=== PATIENT | male | born 1945 | race Caucasian/White ===

== ENCOUNTER → 2019-04-29 10:47 | Outpatient (CLI) | payer OTHER, SELFPAY ==
--- NOTE | 2019-04-29 11:06 | DI.CT.S_ITS ---
PROCEDURE: CT ABDOMEN PELVIS WO/W CON INDICATIONS: Hematuria, unspecified TECHNIQUE: Optional 5 mm thick noncontrast images acquired from the diaphragm to the symphysis pubis. After the administration of intravenous contrast, 5 mm thick images acquired from the diaphragm to the symphysis pubis after a 10-minute delay. 2 mm thick coronal and sagittal reformats were then performed of the kidneys and ureters. For radiation dose reduction, the following was used: automated exposure control, adjustment of mA and/or kV according to patient size. COMPARISON: None. FINDINGS: Image quality: Excellent. Lung bases: Fat-containing right posterior diaphragmatic hernia. Small hiatal hernia. Urinary system: Both kidneys are normal in size, without hydronephrosis or nephrolithiasis on pre-contrast images. Numerous subcentimeter presumed cyst seen in both kidneys although right much more numerous than left, technically indeterminate due to small size. No perinephric fat stranding. There is normal bilateral renal enhancement. Renal calyces appear normal in morphology when filled with contrast. Opacified portions of both ureters demonstrate normal caliber. Large bladder mass is seen along the right posterior wall measuring 1.9 x 4.3 cm. This measures approximately 4.2 cm in the cephalocaudad dimension. No bladder calculi. Other solid organs: Liver is normal in size and enhancement. Gallbladder negative. Biliary system is non dilated. Pancreas enhances normally. Spleen is normal in size and enhancement. No adrenal nodules. Peritoneum and bowel: Bowel loops demonstrate normal wall thickness and caliber. No free fluid or air. Colonic diverticulosis. Nodes and vessels: No retroperitoneal or mesenteric adenopathy by size criteria. Aorta and inferior vena cava are normal in size. Scattered vascular calcifications seen in the aorta. Abdominal wall: No ventral hernias. Pelvis: Bilateral small fat-containing inguinal hernias. No pelvic free fluid. No pelvic adenopathy identified. Prostate and seminal vesicles grossly unremarkable. Bones: No suspicious bony lesions. No vertebral body compression fractures. Chronic left rib fractures. IMPRESSION: Large right posterior bladder mass, highly suspicious for bladder malignancy. Recommend further evaluation with cystoscopy. Elsewhere, small renal cyst however no evidence of urinary obstruction. No specific evidence of distant metastatic disease. Additional chronic and incidental findings as above. Findings were personally telephoned and discussed with Dr. Escobedo's triage nurse at 1347 hours on 04/29/19 who will relay them when possible and call back if any questions. . Dictated by: Anuj Romeo M.D. on 04/29/2019 at 13:25 Approved by: Anuj Romeo M.D. on 04/29/2019 at 13:49
== END ==
PROVIDERS: PCP Family Medicine; Visit Provider Family Medicine
DX: R31.9 Hematuria, unspecified (principal); N32.9 Bladder disorder, unspecified; N28.1 Cyst of kidney, acquired; K40.20 Bilateral inguinal hernia, without obstruction or gangrene, not specified as recurrent; K44.9 Diaphragmatic hernia without obstruction or gangrene; K57.90 Diverticulosis of intestine, part unspecified, without perforation or abscess without bleeding
CPT/HCPCS: 74178; Q9967

== ENCOUNTER 2019-08-05 10:22 | Day surgery (SDC) | payer MEDICARE, OTHER, SELFPAY ==
[2019-07-29 13:38] VITALS: BMI 31.1
[2019-08-05] VITALS (9 sets, daily range): BP systolic 138–165; BP diastolic 52–74; PULSE 50–87; RESP 10–24; TEMP 36–36.6; O2SAT 94–100; BMI 31.1
--- NOTE | 2019-08-05 | PATH_ITS ---
[facility] Accession Number: [id number] . 01 Material submitted: . PART A: bladder - BLADDER TUMOR RIGHT ANTERIOR WALL AND NECK PART B: bladder - BLADDER TUMOR BASE . 01 Clinical history: . TURBT/INSTILLATION MITOMYCIN C 20 MG . 02 Diagnosis: A. Bladder, Tumor Right Anterior Wall and Neck, Transurethral Resection: High-grade papillary urothelial carcinoma. No invasion identified. No lymphovascular invasion identified. No muscularis propria identified. . B. Bladder, Tumor Base, Transurethral Resection: High-grade papillary urothelial carcinoma, invasive. No definite lymphovascular invasion identified. Muscularis propria/detrusor muscle is present and uninvolved by carcinoma. [facility] 08/08/2019 1520 Local . 02 Comment: As part of routine aerospace quality engineer, Dr. Dave Gonzales also reviewed this case and agrees with the diagnosis. Dr. Iniguez gave preliminary results to Kylie in Dr. Navas's office on 08/08/2019. . 02 Electronically signed: . Lana Iniguez MD, Pathologist NPI- [id number] . 01 Gross description: . (A) Received in formalin, labeled bladder tumor, right anterior wall neck, are multiple fragments of layton tissue (less than 1 gram, 1.8 x 1.8 x 0.5 cm in aggregate). Entirely submitted in cassette A1. (B) Received in formalin, labeled bladder tumor base, are multiple fragments of layton friable tissue (16 grams, 4.5 x 4.2 x 2.3 cm in aggregate). Entirely submitted in cassettes B1-B10. ([id number]) /MRV 08/07/2019 2150 Local . 02 Pathologist provided ICD-10: C67.9 . 02 CPT . 445105, [id number] Performed at: 01 [facility] [address] [id number] MD Deepak Viveros MD Phone: [phone] Performed at: 02 [facility] [address] [place], [place] [id number] MD Lana Iniguez MD Phone: [phone]
--- NOTE | 2019-08-05 09:10 | PM.PREOP ---
Pre-operative Note Interval Note History & Physical reviewed/Exam performed by Physician: Yes Changes to H&P: No H&P completed within 30 days and has changed as indicated here:: H&P on file.
[2019-08-05] MEDS: LACTATED RINGERS 1,000 ML 42 ML IV (11:00)
[2019-08-05] MEDS: CEFAZOLIN 2 GM/100 ML FROZ.PIGGY IV (12:00)
[2019-08-05] MEDS: BELLADONNA/OPIUM SUPPOSITORIES 1 EACH PR (12:45)
[2019-08-05] MEDS: mitoMYcin 20 MG in WATER FOR INJECTION 20 ML 240 ML INTRAVESIC (12:46)
[2019-08-05] MEDS: fentaNYL 100 MCG/2 ML INJ IV ×2 (13:53→14:03)
[2019-08-05] MEDS: OXYCODONE IR 5 MG TABLET PO (14:30)
--- NOTE | 2019-08-05 15:43 | PM.OP.1 ---
Operative Date/Time/Diagnoses Date of procedure: 08/05/19 Time of procedure: 13:30 Pre-op diagnosis: Large bladder neoplasm Post-op diagnosis: same Procedure & Clinicians Procedure: 1. Transurethral resection of bladder neoplasm-large 2. Instillation mitomycin C (see 20 mg) Same procedure as scheduled: Yes Indications: Large neoplasm right anterior wall and bladder neck Surgeon: Gavino Navas Click Yes if Unassisted: Yes Anesthesia Type: General Operative Notes Findings: Urethral-normal External sphincter-coapted Prostate-4 cm length with moderate lateral lobe hyperplasia Bladder -1 to 2+ trabeculation. There was a large mainly papillary neoplasm situated at the right anterior wall and floor and bladder neck there was attached calcifications the right ureteral orifice was not able to be identified with certainty. One intraoperative photograph was taken that I believe is a preserved and intact right ureteral orifice. Closure Type: not applicable Specimen(s): other (1. Bladder neoplasm 2. Base of bladder neoplasm ) Applied: catheter (Twenty-two Nigerian silicone [address] catheter) Estimated Blood Loss (mL): 10 Blood products transfused: none Procedure in detail: The patient was positioned supine and administered general anesthesia. He was then repositioned in semi-lithotomy and the lower abdomen genitalia and groin were prepped and draped in sterile fashion. The 25 Nigerian resectoscope was then advanced to the lower urinary track with a 30 degree lens with the findings as described above. The resecting loop was then fitted to the resecting element. Cold resection samples were then obtained and submitted as ?bladder neoplasm?. Cutting and cautery resection was then utilized to resect the very large neoplasm occupying the right bladder neck anterior wall and floor as described under findings. Resection was taken down well into the muscularis focal fat was observed and the area of the right a inner right bladder neck at about 8:00 a.m.. Hemostasis was obtained with the cautery element all tissue that was resected was irrigated or mechanically removed with the resecting loop. It was then labeled as base of neoplasm and submitted to pathology for routine gross and microscopic examination. The bladder was then left partially filled and the resectoscope was removed. A 22 Nigerian silicone Green catheter was then inserted and the balloon inflated to 10 cc. The bladder contents were drained. 20 mg of mitomycin-C suspended in 20 cc of sterile normal saline were then instilled into the bladder via the catheter. A catheter plug was then positioned in the drainage flange of the catheter for anticipated to our postoperative retention. The patient was then repositioned in supine was awakened transferred to [facility] and then transported to recovery in stable condition. Complications: none Post-operative Condition: stable Disposition: PACU Plan for aftercare: Schedule appointment with Dr. Navas in 10-12 days for Green catheter and review of pathology.
--- NOTE | 2019-08-05 16:18 | SUR.PHASEII ---
Bladder drained at 1530. Dark, thick red fluid drained, 250 mls. Green bag with urine placed in chemo bin. Meatus cleaned, small amt of blood to meatus. Leg bag placed. Green teaching done with patient and spouse.
--- NOTE | 2019-08-05 17:22 | SUR.PHASEII ---
Patient dressed with assistance from spouse. Domínguez patent with dark, red fluid. Water encouraged. Large domínguez bag provided to patient.
== END 2019-08-05 16:55 | disposition home or self-care (01) ==
PROVIDERS: PCP Family Medicine; Visit Provider Specialist
PROC: 0TBB8ZZ Excision of Bladder, Via Natural or Artificial Opening Endoscopic (ICD-10-PCS; CPT 52240; principal; 2019-08-05 11:15)
DX: C67.8 Malignant neoplasm of overlapping sites of bladder (principal); N40.1 Benign prostatic hyperplasia with lower urinary tract symptoms
CPT/HCPCS: 52240; J0690; J2405; J2704; J3010; J9280

== ENCOUNTER → 2019-10-25 11:04 | Outpatient (CLI) | payer MEDICARE, OTHER, SELFPAY ==
--- NOTE | 2019-10-25 12:11 | DI.CT.S_ITS ---
PROCEDURE: CT ABDOMEN PELVIS WO/W CON INDICATIONS: BLADDER CANCER TECHNIQUE: Optional 5 mm thick noncontrast images acquired from the diaphragm to the symphysis pubis. After the administration of intravenous contrast, 5 mm thick images acquired from the diaphragm to the symphysis pubis after a 10-minute delay. 2 mm thick coronal and sagittal reformats were then performed of the kidneys and ureters. For radiation dose reduction, the following was used: automated exposure control, adjustment of mA and/or kV according to patient size. COMPARISON: [facility], CT, CT ABDOMEN PELVIS WO/W CON, 04/29/2019, 11:37. FINDINGS: Image quality: Excellent. Lung bases: Lung bases are clear. Heart size is normal. Moderate-sized hiatal hernia. Small fat containing right Bochdalek hernia, stable. Urinary system: Both kidneys demonstrate symmetric enhancement. Stable appearance of multiple subcentimeter bilateral renal hypodensities which are again too small to accurately characterize but likely represent cysts. These are again more numerous on the right. No significant perinephric stranding. Interval development of mild-moderate right hydronephrosis. No intraluminal filling defects within the opacified right renal pelvis. There is mild right hydroureter. No contrast opacifies the right ureter although no secondary findings to suggest intraluminal filling defects or periureteral stranding or periureteral soft tissue lesions. There is normal appearance of the left ureter without intraluminal filling defects identified. No perinephric fat stranding. There is normal bilateral renal enhancement. Bilateral renal calyces appear normal in morphology when filled with contrast. No calcified bladder stones. Persistent asymmetric wall thickening of the posterior and right wall of the urinary bladder. This appears less prominent than comparison study dated 04/29/19. More prominent/focal bladder wall thickening of the posterior right urinary bladder wall measures approximately 3.1 cm x 1.0 cm in transverse dimension and approximately 1.0 cm in craniocaudal dimension. Area of more focal thickening is noted at the right ureterovesicular junction. Remainder the urinary bladder wall demonstrates uniform wall thickness. Other solid organs: Liver is normal in size and enhancement. Gallbladder is unremarkable. Biliary system is non dilated. Pancreas enhances normally. Spleen is normal in size and enhancement. No adrenal nodules. Peritoneum and bowel: Bowel loops demonstrate normal wall thickness and caliber. No free fluid or air. Scatter colonic diverticulosis without acute diverticulitis. Nodes and vessels: No retroperitoneal or mesenteric adenopathy by size criteria. Stable appearance of right pelvic sidewall lymph nodes adjacent to the distal right common iliac artery. Scattered atherosclerotic calcifications of the abdominal aorta and iliac vessels without aneurysmal dilatation. Aorta and inferior vena cava are normal in size. Abdominal wall: No ventral hernias. Pelvis: No pathologic free pelvic fluid. Small fat containing bilateral inguinal hernias without acute inflammation. Bones: No suspicious bony lesions. No acute vertebral body compression fractures. Multilevel spondylitic changes throughout the imaged spine. IMPRESSION: 1. Interval decrease in size of right posterior bladder wall mass with more focal thickening near the right ureterovesicular junction. This may represent cause of new right-sided hydronephrosis. The right ureter was not opacified with contrast; however, no secondary findings to suggest intraluminal filling defects within the right ureter. 2. Stable appearance of small, subcentimeter bilateral renal hypodensities favored to represent small renal cysts. 3. No CT evidence for distant metastatic disease. 4. Other chronic findings as above. These are also stable. Dictated by: Thor Man M.D. on 10/25/2019 at 17:16 Approved by: Thor Man M.D. on 10/25/2019 at 17:37
[2019-10-25 12:21] LABS: BUN Creatinine Ratio 19.4 (6-22); Blood Urea Nitrogen 27 mg/dL (9-20); Calcium 9.8 mg/dL (8.4-10.2); Carbon Dioxide 28 mmol/L (22-32); Chloride 106 mmol/L (98-107); Estimated Glomerular Filt Rate 49.8 mL/min (>60); Glucose 115 mg/dL (80-110); HEMOLYSIS < 15 (0-50); Sodium 142 mmol/L (137-145)
== END ==
PROVIDERS: PCP Family Medicine; Referring Provider Family Medicine; Visit Provider Specialist
DX: C67.9 Malignant neoplasm of bladder, unspecified (principal); K44.9 Diaphragmatic hernia without obstruction or gangrene; N13.30 Unspecified hydronephrosis; K57.90 Diverticulosis of intestine, part unspecified, without perforation or abscess without bleeding; I70.0 Atherosclerosis of aorta; K40.20 Bilateral inguinal hernia, without obstruction or gangrene, not specified as recurrent
CPT/HCPCS: 36415; 74178; 80048; Q9967

== ENCOUNTER 2019-11-11 14:12 | Day surgery (SDC) | payer MEDICARE, OTHER, SELFPAY ==
[2019-11-04 07:23] VITALS: BMI 26.3
[2019-11-11 14:54] VITALS: BP 180/81; PULSE 67; RESP 16; TEMP 36.7; O2SAT 100; BMI 26.3
[2019-11-11] MEDS: LACTATED RINGERS 1,000 ML 42 ML IV (15:00)
--- NOTE | 2019-11-11 15:45 | SUR.PREOP ---
Pts procedure was deferred for the following reasons: 1. No Covid-19 test was preformed as instructed for his procedure. 2. Pt was under the impression he was staying over night for an outpatient procedure. After speaking with Dr Navas, he elected to defer this case until the above requirements are met.
[2020-07-17 08:02] VITALS: BMI 26.3
== END 2019-11-11 14:55 | disposition home or self-care (01) ==
PROVIDERS: PCP Family Medicine; Referring Provider Specialist; Visit Provider Specialist
DX: C67.9 Malignant neoplasm of bladder, unspecified (principal); N13.1 Hydronephrosis with ureteral stricture, not elsewhere classified; Z53.09 Procedure and treatment not carried out because of other contraindication
CPT/HCPCS: 52240; J2405; J2704; J3010

== ENCOUNTER → 2019-11-11 16:03 | Outpatient (CLI) | payer MEDICARE, OTHER, SELFPAY ==
[2019-11-12 03:03] LABS: COVID19 Sendout Not Detected (Not Detect)
== END ==
PROVIDERS: PCP Family Medicine; Visit Provider Physician Assistant
DX: Z01.812 Encounter for preprocedural laboratory examination (principal)
CPT/HCPCS: 87635

== ENCOUNTER 2019-11-18 08:49 | Day surgery (SDC) | payer MEDICARE, OTHER, SELFPAY ==
[2019-11-15 07:33] VITALS: BMI 26.3
[2019-11-18] VITALS (7 sets, daily range): BP systolic 137–193; BP diastolic 64–88; PULSE 16–559; RESP 16–18; TEMP 36.2–36.8; O2SAT 96–98; BMI 26.0
--- NOTE | 2019-11-18 | PATH_ITS ---
[facility] Accession Number: [id number] . 01 Material submitted: . bladder neck - RIGHT BLADDER NECK TUMOR . 02 Diagnosis: Right Bladder Neck Tumor, TURBT: Low-grade papillary urothelial carcinoma, non-invasive, see Cancer Case Summary. . Surgical Pathology Cancer Case Summary - Urinary Bladder Procedure: Transurethral resection of bladder. Tumor Site: Other - Right bladder neck. Histologic Type: Papillary urothelial carcinoma, non-invasive. Associated Epithelial Lesions: None identified. Histologic Grade: Low-grade. Tumor Configuration: Papillary. Muscularis Propria Presence: Muscularis propria present. Lymphovascular Invasion: Not identified. Tumor Extension: Non-invasive papillary carcinoma. . [facility] 11/21/2019 1551 Local . 02 Comment: This case is reviewed in conjunction with the previous bladder pathology ([id number]). The degree of nuclear atypia seen in the previous bladder biopsy is not present in the current specimen, warranting a diagnosis of low-grade papillary urothelial carcinoma in the current specimen. Muscularis propria is present, and uninvolved by neoplasm. . As part of routine quality analyst/technical writer, Dr. Santillan has reviewed this case and agrees with the diagnosis above. . 02 Electronically signed: . Dave Gonzales MD, PhD, Pathologist NPI- [id number] . 01 Gross description: . Received in formalin, labeled right bladder neck, are multiple piece of layton-pink, rubbery tissue (1.5 x 1.3 x 0.4 cm in aggregate). Entirely submitted in cassette A1. ([id number]) /FRR 11/19/2019 1413 Local . 02 Pathologist provided ICD-10: C67.9 . 02 CPT . 919681 Performed at: 01 [facility] [address] [place] [address], [place], [place] [id number] MD Deepak Viveros MD Phone: [phone] Performed at: 02 [facility] [address] [place], [place] [id number] MD Lana Santillan MD Phone: [phone]
[2019-11-18] MEDS: LACTATED RINGERS 1,000 ML 42 ML IV (09:05)
[2019-11-18] MEDS: CEFAZOLIN 2 GM/100 ML FROZ.PIGGY IV (10:35)
--- NOTE | 2019-11-18 11:08 | SUR.OPER ---
Lithotomy on padded OR bed, head on pillow, arms secured on padded arm boards at <90 degrees abduction. Legs secured in padded yellow fins stirrups.
[2019-11-18] MEDS: METHYLENE BLUE 50 MG/10 ML VIAL IV (11:15)
[2019-11-18] MEDS: mitoMYcin 20 MG in WATER FOR INJECTION 20 ML 240 ML INTRAVESIC (11:34)
--- NOTE | 2019-11-18 11:44 | PM.PREOP ---
Pre-operative Note COVID-19 COVID-19 status: Negative Interval Note History & Physical reviewed/Exam performed by Physician: Yes Changes to H&P: No H&P completed within 30 days and has changed as indicated here:: There are no changes to the history and physical examination scanned on file.
--- NOTE | 2019-11-18 11:44 | PM.OP.1 ---
Operative Date/Time/Diagnoses Date of procedure: 11/18/19 Time of procedure: 11:45 Pre-op diagnosis: 1. 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 2. Right hydronephrosis status post resection transitional cell carcinoma of right bladder trigone. Post-op diagnosis: same Procedure & Clinicians Procedure: 1. Cystoscopy. 2. Transurethral resection of bladder tumors. 3. Instillation mitomycin C ( 20 mg). Same procedure as scheduled: No (Could not locate right ureteral orifice after resection of wet eschar) Indications: 1. Recurrent transitional cell carcinoma right bladder neck. 2. Right hydronephrosis. Surgeon: Gavino Navas Click Yes if Unassisted: Yes Anesthesia Type: General Operative Notes Findings: 1. Urethra-normal. 2. External sphincter-coapted. 3. Prostate -4 cm length with moderately obstructing lateral lobes. 4. Bladder-1 to 2+ trabeculation normal left orifice. The right orifice could not be located visually. The wet eschar was cold and hot resected in an attempt to identify the obscured orifice. Methylene blue was administered as well. No identifiable aperture could be identified and therefore retrograde pyelogram and right stent placement were not performed. There was a small neoplasm noted at the left posterior floor which was cautery destroyed to the level of the muscle. Several tumors clustered at the right bladder neck were resected with inclusion of underlying muscularis. Closure Type: not applicable Specimen(s): other (Bladder neoplasm right bladder neck) Applied: catheter (Eighteen Cambodian Green catheter) Estimated Blood Loss (mL): 0 Blood products transfused: none Tourniquet time (min): 0 Procedure in detail: The patient was positioned in supine and was administered general anesthesia. He was then repositioned semi lithotomy in the lower abdomen genitalia and groin were prepped and draped in sterile fashion. The 22 Cambodian panendoscope was then passed the lower urinary tract with the findings as described above. The bladder was then left partially filled and the panendoscope was removed. The 24 Cambodian resectoscope was then passed lower urinary tract under direct visualization. The resecting loop was then utilized to cautery destroyed the above-described tumor at the left posterior bladder floor and then resect deeply those tumors at the right bladder neck. Hemostasis was attained with electrocautery. An extensive search for the right ureteral orifice was then undertaken. Despite cold in high resection of the overlying when scab a ureteral aperture could not be identified visually. Methylene blue was then administered. Unfortunately a right orifice could not be identified. Therefore anticipated right retrograde pyelogram and right stent placement were not performed. The bladder was left partially filled and the resectoscope was removed. An 18 Cambodian Green catheter was then inserted. The balloon was inflated to 10 cc. The bladder contents were drained. 20 cc containing 20 mg mitomycin C were then instilled into the bladder and the catheter plugged for anticipated to our postoperative retention. Complications: none Post-operative Condition: stable Disposition: PACU Plan for aftercare: Discharge home.
--- NOTE | 2019-11-18 12:36 | SUR.PHASEII ---
called patient's , Dedra, with update regarding patient's status and that patient would be discharged at approximately 1400 if all remains stable. V/U. Patient sitting in stretcher, reading book. Denies any pain or nausea. Warm blanket provided.
--- NOTE | 2019-11-18 14:30 | SUR.PHASEII ---
Late Entry: 1325: Attached large catheter bag and drained mitomycin as per protocol using chemotherapy precautions. 200 mls output noted. Attached leg bag and secured to patient using straps. Educated and instructed patient how to empty the drainage bag and how to deflate balloon on Thursday to remove catheter completely. Patient verbalizes understanding.
--- NOTE | 2019-11-18 14:32 | SUR.PHASEII ---
Discharged patient home with in stable condition. Instructed to follow up as needed or to return to ER if any severe symptoms.
== END 2019-11-18 14:36 | disposition home or self-care (01) ==
PROVIDERS: PCP Family Medicine; Referring Provider Specialist; Visit Provider Specialist
PROC: 0TBB8ZZ Excision of Bladder, Via Natural or Artificial Opening Endoscopic (ICD-10-PCS; CPT 52235; principal; 2019-11-18 10:00)
PROC: (CPT 52235; 2019-11-18 10:00)
DX: C67.9 Malignant neoplasm of bladder, unspecified (principal); I10 Essential (primary) hypertension; N40.1 Benign prostatic hyperplasia with lower urinary tract symptoms; N13.39 Other hydronephrosis
CPT/HCPCS: 52235; J0690; J9280; Q9968

== ENCOUNTER → 2020-04-25 10:37 | Outpatient (CLI) | payer MEDICARE, OTHER, SELFPAY ==
--- NOTE | 2020-04-25 11:52 | DI.CT.S_ITS ---
PROCEDURE: CT ABDOMEN PELVIS WO/W CON TECHNIQUE: Optional 5 mm thick noncontrast images acquired from the diaphragm to the symphysis pubis. After the administration of intravenous contrast, 5 mm thick images acquired from the diaphragm to the symphysis pubis after a 10-minute delay. 2 mm thick coronal and sagittal reformats were then performed of the kidneys and ureters. For radiation dose reduction, the following was used: automated exposure control, adjustment of mA and/or kV according to patient size. COMPARISON: [facility], CT, CT ABDOMEN PELVIS WO/W CON, 10/25/2019, 12:27. FINDINGS: Image quality: Excellent. Lung bases: Lung bases are clear. Heart size is normal. Fat containing right diaphragmatic hernia. Urinary system: Right ureteral stent. No right nephrolithiasis. No left nephrolithiasis identified. There is mild age-indeterminate bilateral perinephric stranding. No hydronephrosis identified. Ureters appear nondilated. There is mild thickening of the right posterior bladder wall as well as anterior mural nodularity presumably reflecting patient's given clinical history of bladder carcinoma. This appears slightly more progressed in particular involving the anterior mural nodularity measuring 2.4 x 1.6 cm image 75/2. Other solid organs: Liver is normal in size and enhancement. Gallbladder unremarkable . Biliary system is non dilated. Pancreas enhances normally. Spleen is normal in size and enhancement. No adrenal nodules. Peritoneum and bowel: Bowel loops demonstrate normal wall thickness and caliber. No free fluid or air. Colonic diverticulosis is seen without evidence of acute complication. Small hiatal hernia. Nodes and vessels: No retroperitoneal or mesenteric adenopathy by size criteria. Aorta and inferior vena cava are normal in size. Scattered vascular calcifications seen in the aorta. There is also suggestion of displaced intimal calcification suggestive of chronic aortic dissection/hematoma which is unchanged since the prior study. Abdominal wall: No ventral hernias. Pelvis: No pathologic free pelvic fluid. Small bilateral fat containing inguinal hernias. Bones: Chronic multiple left-sided rib fractures. No suspicious bone lesion identified. Diffuse spondylosis and facet arthropathy. IMPRESSION: Interval progression in anterior bladder mural nodularity, presumably reflecting the patient's given clinical history of bladder carcinoma. No hydronephrosis, status post placement of right ureteral stent. Additional chronic and incidental findings as above. Dictated by: Anuj Romeo M.D. on 04/25/2020 at 12:05 Approved by: Anuj Romeo M.D. on 04/25/2020 at 13:04
== END ==
PROVIDERS: PCP Family Medicine; Referring Provider Specialist; Visit Provider Specialist
DX: C67.9 Malignant neoplasm of bladder, unspecified (principal); K40.20 Bilateral inguinal hernia, without obstruction or gangrene, not specified as recurrent; K57.90 Diverticulosis of intestine, part unspecified, without perforation or abscess without bleeding; K44.9 Diaphragmatic hernia without obstruction or gangrene
CPT/HCPCS: 74178; Q9967

== ENCOUNTER → 2020-05-03 11:09 | Outpatient (CLI) | payer MEDICARE, OTHER, SELFPAY | PROVIDERS: PCP Family Medicine; Visit Provider Specialist | DX: N39.0 Urinary tract infection, site not specified (principal); C67.9 Malignant neoplasm of bladder, unspecified; N28.9 Disorder of kidney and ureter, unspecified; N40.1 Benign prostatic hyperplasia with lower urinary tract symptoms; N13.8 Other obstructive and reflux uropathy; Z85.51 Personal history of malignant neoplasm of bladder | CPT/HCPCS: 51798; 52310; 81002; 87086; 99214 ==

== ENCOUNTER 2020-05-14 11:28 | Day surgery (SDC) | payer MEDICARE, OTHER, SELFPAY ==
[2020-05-10 08:28] VITALS: BMI 23.7
[2020-05-14] VITALS (9 sets, daily range): BP systolic 117–182; BP diastolic 52–77; PULSE 44–56; RESP 10–16; TEMP 36.1–36.7; O2SAT 98–100; BMI 24.3
[2020-05-14] MEDS: LACTATED RINGERS 1,000 ML 42 ML IV (12:59)
[2020-05-14] MEDS: CEFAZOLIN 2 GM/100 ML FROZ.PIGGY IV (13:25)
--- NOTE | 2020-05-14 13:27 | PM.PREOP ---
Pre-operative Note Interval Note History & Physical reviewed/Exam performed by Physician: Yes Changes to H&P: No
--- NOTE | 2020-05-14 13:51 | SUR.OPER ---
Lithotomy on padded OR bed, head on pillow, arms secured on padded arm boards at <90 degrees abduction. Legs secured in padded yellow fins stirrups.
--- NOTE | 2020-05-14 14:07 | PM.OP.1 ---
Operative Date/Time/Diagnoses Date of procedure: 05/14/20 Time of procedure: 14:07 Pre-op diagnosis: 1. Recurrent urothelial carcinoma the bladder Post-op diagnosis: same Procedure & Clinicians Procedure: 1. Cystoscopy transurethral resection-full duration recurrent bladder tumor (0.5-2 cc). 2. Cystoscopy and placement right ureteral stent (6 Mauritian by 22-32 cm multi-length). 3. Cystoscopy instillation mitomycin-C (20 mg). Same procedure as scheduled: No (Suspicious recurrence right ureteral orifice) Indications: 1. Recurrent urothelial carcinoma right ureteral orifice/ureteric ridge. 2. History of recurrent urothelial carcinoma. Click Yes if Unassisted: Yes Anesthesia Type: General Operative Notes Findings: 1. Urethra-normal caliber no lesions. 2. External sphincter-coapted. 3. Prostate-4 cm length with moderate trilobar hyperplasia. 4. Bladder-1-2 puffs trabeculation throughout. Normal left ureteral orifice. There is a healing resection base adjacent to the right ureteral orifice there are numerous small urothelial projection mainly posterior and lateral to the orifice. No brice tumor or suspicious lesion is seen emanating from the ureteral orifice. Closure Type: not applicable Specimen(s): none sent Applied: catheter (Eight[address] Green) Estimated Blood Loss (mL): 0 Blood products transfused: none Tourniquet time (min): 0 Procedure in detail: Patient was positioned supine was administered general anesthesia. He was then repositioned semi lithotomy and the lower abdomen, genitalia, and groin were prepped and draped in sterile fashion for a the 22 Mauritian panendoscope was then passed lower urinary tract with the findings as described above. A 0.35 guidewire was requested and passed through the working port into the right collecting system under direct guidance. Over this a 6 Mauritian by 22-32 cm multi-length stent was positioned. NO RETRIEVAL LINE WAS LEFT ATTACHED. Next, the panendoscope was removed and resectoscope was introduced lower urinary tract and fitted with the button electrode. Using great care this is fissures areas were cautery destroyed the vicinity of the right ureteral orifice. Hemostasis was excellent resectoscope was then removed. An [address] catheter was inserted, the balloon inflated to 10 cc and the bladder contents drained. A catheter plug was positioned in the in port. 20 mg of mitomycin-C suspended and 20 cc of normal saline were then instilled into the bladder via the outflow channel of the Green. Patient was then repositioned in supine, awakened, and transferred recovery stable condition. Complications: none Post-operative Condition: stable Disposition: PACU Plan for aftercare: Discharge home
[2020-05-14] MEDS: WATER FOR INJECTION,STERILE 20 ML, mitoMYcin 20 MG INTRAVESIC (14:08)
--- NOTE | 2020-05-14 15:06 | SUR.PHASEI ---
1433 - report from MARIAH Rivas and care assumed. 1450 - pt turned to right side.
--- NOTE | 2020-05-14 15:13 | SUR.PHASEI ---
report given to MARIAH Rivas and mike reassumed.
--- NOTE | 2020-05-14 15:20 | SUR.PHASEI ---
Patient on back for 30 minutes, left side for 30 minutes and now on on right side, per mitomycin protocal. Denies pain, states it is an inconvenience.
--- NOTE | 2020-05-14 16:52 | SUR.PHASEII ---
Sitting up in bed, comfortable, drinking fluids, waiting to urinate before he can be discharged. Pleasant, visiting at bedside.
--- NOTE | 2020-05-14 17:42 | SUR.PHASEII ---
1720 Ambulated to the bathroom to void, stable on feet. Voided 100 ml clear pink urine, states that he feels that he was able to empty his bladder completely without difficulty. Pt was pleased that he could also stop voiding. Vital signs taken, tolerated PO intake well. present, reviewed discharge instructions. [place], declined priority boarding pass. 1842 Ambulated to bathroom, voided a little bit
--- NOTE | 2020-05-14 17:50 | SUR.PHASEII ---
Discharge instructions reviewed w/pt/ by Kamari Perdomo RN.
--- NOTE | 2020-05-14 17:51 | SUR.PHASEII ---
states that she got his prescription
== END 2020-05-14 17:52 | disposition home or self-care (01) ==
PROVIDERS: PCP Family Medicine; Referring Provider Family Medicine; Visit Provider Specialist
PROC: 0TBB8ZZ Excision of Bladder, Via Natural or Artificial Opening Endoscopic (ICD-10-PCS; CPT 52234; principal; 2020-05-14 13:15)
DX: C67.9 Malignant neoplasm of bladder, unspecified (principal); E11.9 Type 2 diabetes mellitus without complications; E78.5 Hyperlipidemia, unspecified; I10 Essential (primary) hypertension; N40.1 Benign prostatic hyperplasia with lower urinary tract symptoms; N13.8 Other obstructive and reflux uropathy
CPT/HCPCS: 52234; J0690; J2405; J2704; J3010; J9280

== ENCOUNTER → 2020-06-14 11:28 | Outpatient (CLI) | payer MEDICARE, OTHER, SELFPAY | PROVIDERS: PCP Family Medicine; Referring Provider Specialist; Visit Provider Specialist | DX: N39.0 Urinary tract infection, site not specified (principal) | CPT/HCPCS: 87086 ==

== ENCOUNTER 2020-07-23 10:46 | Day surgery (SDC) | payer MEDICARE, OTHER, SELFPAY ==
[2020-07-17 08:03] VITALS: BMI 25.0
[2020-07-23] VITALS (7 sets, daily range): BP systolic 136–188; BP diastolic 62–84; PULSE 51–70; RESP 12–18; TEMP 36.3–37.3; O2SAT 97–100; BMI 25.0
--- NOTE | 2020-07-23 | PATH_ITS ---
[facility] Accession Number: [id number] . 01 Material submitted: . PART A: bladder - LEFT LATERAL BLADDER WALL MAIN TUMOR PART B: bladder - LEFT LATERAL BLADDER WALL BASE PART C: bladder, dome - BLADDER DOME TUMOR . 02 Diagnosis: A. Left Lateral Bladder Wall, Main Tumor, Transurethral Resection: High-grade papillary urothelial carcinoma, noninvasive. No muscularis propria identified. . B. Left Lateral Bladder Wall, Tumor Base, Transurethral Resection: High-grade papillary urothelial carcinoma, noninvasive. Muscularis propria present and uninvolved. . C. Bladder Dome Tumor, Transurethral Resection: High-grade papillary urothelial carcinoma, noninvasive. Muscularis propria present and uninvolved. . . . CANCER CASE SUMMARY - URINARY BLADDER . Procedure: Transurethral resection of bladder (TURBT) Tumor site: Left lateral wall, dome Histologic type: Papillary urothelial carcinoma, noninvasive Associated epithelial lesions: Not identified. Histologic grade: High grade Tumor configuration: Papillary Muscularis propria presence: Muscularis propria present Lymphovascular invasion: Not identified Tumor extension: Noninvasive papillary carcinoma MRV 07/26/2020 1424 Local . 02 Comment: As part of routine quality assurance assistant, Dr. Boyce has reviewed this case and agrees with the diagnosis of noninvasive papillary urothelial carcinoma. . 02 Electronically signed: . Dave Gonzales MD, PhD, Pathologist NPI- [id number] . 01 Gross description: . A. Received in formalin, labeled left lateral bladder wall main tumor, and consists of a 0.9 x0.6 x 0.3 cm layton-pink fragment of soft tissue. The margin is inked blue. The specimen is bisected and entirely submitted in cassette A1. B. Received in formalin, labeled left lateral bladder wall base, and consists of three layton-pink fragments of soft tissue measuring 1.0 x 0.8 x 0.3 cm in aggregate. The specimen is entirely submitted in cassette B1. C. Received in formalin, labeled bladder dome tumor, and consists of multiple layton-pink fragments of soft tissue measuring 3.0 x 2.2 x 0.5 cm in aggregate. The specimen is filtered and entirely submitted in cassette C1. ([id number]) /MRV 07/24/2020 1024 Local . 02 Pathologist provided ICD-10: C67.9 . 02 CPT . 550861, 868572, [id number] Performed at: 01 [facility] [address] [place] [address], [place], [place] [id number] MD Deepak Viveros MD Phone: [phone] Performed at: 02 [facility] [address] [place], [place] [id number] MD Lana Santillan MD Phone: [phone]
--- NOTE | 2020-07-23 11:33 | SUR.PREOP ---
Rapid Covid swab performed by RN at 1055 and hand carried to laboratory. Waiting for result.
[2020-07-23 11:34] LABS: COVID19 -Nasal RAPID Negative (Negative)
[2020-07-23] MEDS: LACTATED RINGERS 1,000 ML 25 ML IV (12:28)
--- NOTE | 2020-07-23 12:38 | PM.PREOP ---
Pre-operative Note Interval Note History & Physical reviewed/Exam performed by Physician: Yes Changes to H&P: No
[2020-07-23] MEDS: CEFAZOLIN 2 GM/100 ML FROZ.PIGGY IV (12:40)
--- NOTE | 2020-07-23 13:04 | SUR.OPER ---
Lithotomy on padded OR bed, head on pillow, arms secured on padded arm boards at <90 degrees abduction. Legs secured in padded yellow fins stirrups.
[2020-07-23] MEDS: BELLADONNA/OPIUM SUPPOSITORIES 1 EACH PR (13:59)
[2020-07-23] MEDS: WATER FOR INJECTION,STERILE 20 ML, mitoMYcin 20 MG INTRAVESIC (14:05)
--- NOTE | 2020-07-23 14:11 | P.OP_ITS ---
Operative Date/Time/Diagnoses Date of procedure: 07/23/20 Time of procedure: 14:12 Pre-op diagnosis: Recurrent bladder cancer Post-op diagnosis: same Procedure & Clinicians Procedure: 1. Transurethral resection of bladder tumors (dome= 4 cm. Left lateral wall= 2 cm) 2. Cystoscopy and instillation mitomycin C. Same procedure as scheduled: Yes Indications: 1. Recurrent mixed papillary /solid recurrent bladder tumor at left lateral wall and at dome. Click Yes if Unassisted: Yes Anesthesia Type: General Operative Notes Findings: 1. Urethra-normal caliber without stricture or lesion. 2. External sphincter coapted with normal overlying urothelium. 3. Prostate-4.5+ cm length with moderately obstructing lateral lobes and elevated median bar. 4. Bladder-2+ trabeculation normal left ureteral orifice. The right ureteral orifice is somewhat gaping and laterally displaced. The neoplasm at the dome is approximately 4 cm. The left lateral wall neoplasm is approximately 2 cm. Applied: catheter (# [address] catheter.) Estimated Blood Loss (mL): 10 Blood products transfused: none Tourniquet time (min): 0 Procedure in detail: The patient was positioned supine administered general anesthesia. He was then repositioned semi lithotomy and the lower abdomen, gen donta, and groin were prepped and draped in sterile fashion. A 25 Malian resectoscope was then advanced lower urinary tract under direct visualization with the findings as described above. Next, a thin resecting loop was fitted to the working element of the resectoscope. The lesion of the left lateral wall was then carefully resected using a combination of cold and cautery resection into muscularis. The specimen was collected as 2 separate specimens, 1 being the tumor proper and the 2nd being the tumor base. The specimens are submitted to pathology for routine gross and microscopic examination. Next, the tumor at the dome was painstakingly resected using a combination of cold and cautery resection. As is typical the tumor was removed piecemeal. Muscularis was visualized. The base and perimeter were extensively cauterized for hemostasis and to sure the patient was left with a tumor free status. The specimen was then collected in total and was submitted to pathology for routine gross and microscopic examination. The bladder was left partially filled and the resectoscope was then removed. A 22 Malian Green catheter was then inserted in the bladder contents were drained. The balloon was inflated to 10 cc. 20 cc containing 20 mg of mitomycin-C was then instilled in the bladder for anticipated 2 hour postoperative retention. The patient was then repositioned supine, awakened, transferred to [facility] in stable condition. Complications: none Post-operative Condition: stable Disposition: PACU Plan for aftercare: Discharge home.
--- NOTE | 2020-07-23 16:38 | SUR.PHASEII ---
1630 Catheter plugged removed and drained into domínguez bag while wearing chemo protections. About 10 min later bag was removed and placed into chemo waste with about 700 ml lavender/moises colored urine. attached leg bag per pt preference. pt will have night bag to go home with as well. plan for pt to remain here until 1820 when [place] pick [place]. report given to Loulou LEMUS.
--- NOTE | 2020-07-23 17:50 | SUR.PHASEII ---
pt. awaiting to come back from shopping. she will be back at 1820.
== END 2020-07-23 17:00 | disposition home or self-care (01) ==
PROVIDERS: PCP Family Medicine; Referring Provider Specialist; Visit Provider Specialist
PROC: 0TBB8ZZ Excision of Bladder, Via Natural or Artificial Opening Endoscopic (ICD-10-PCS; CPT 52240; principal; 2020-07-23 12:30)
DX: C67.9 Malignant neoplasm of bladder, unspecified (principal); N40.1 Benign prostatic hyperplasia with lower urinary tract symptoms; E11.9 Type 2 diabetes mellitus without complications; Z79.84 Long term (current) use of oral hypoglycemic drugs; Z20.828 Contact with and (suspected) exposure to other viral communicable diseases
CPT/HCPCS: 52240; 87635; J0690; J2250; J2405; J2704; J3010; J9280

== ENCOUNTER → 2020-09-03 11:25 | Outpatient (CLI) | payer MEDICARE, OTHER, SELFPAY | PROVIDERS: PCP Family Medicine; Visit Provider Specialist | DX: N39.0 Urinary tract infection, site not specified (principal); C67.9 Malignant neoplasm of bladder, unspecified | CPT/HCPCS: 81002; 87086; J9030 ==

== ENCOUNTER → 2020-09-24 10:55 | Outpatient (CLI) | payer MEDICARE, OTHER, SELFPAY | PROVIDERS: PCP Family Medicine; Visit Provider Specialist | DX: N39.0 Urinary tract infection, site not specified (principal); C67.9 Malignant neoplasm of bladder, unspecified | CPT/HCPCS: 51720; 81002; 87086; J9030 ==

== ENCOUNTER → 2020-10-01 10:22 | Outpatient (CLI) | payer MEDICARE, OTHER, SELFPAY | PROVIDERS: PCP Family Medicine; Visit Provider Specialist | DX: N39.0 Urinary tract infection, site not specified (principal); Z85.51 Personal history of malignant neoplasm of bladder | CPT/HCPCS: 51720; 81002; 87077; 87086; 87185; 87186; J9030 ==

== ENCOUNTER → 2020-11-27 11:01 | Outpatient (CLI) | payer MEDICARE, OTHER, SELFPAY | PROVIDERS: PCP Family Medicine; Visit Provider Specialist | DX: N39.0 Urinary tract infection, site not specified (principal); N40.1 Benign prostatic hyperplasia with lower urinary tract symptoms; N13.8 Other obstructive and reflux uropathy; K40.90 Unilateral inguinal hernia, without obstruction or gangrene, not specified as recurrent; Z85.51 Personal history of malignant neoplasm of bladder | CPT/HCPCS: 52000; 81002; 87077; 87086; 87186; 99214 ==

== ENCOUNTER 2020-12-07 09:11 | Day surgery (SDC) | payer MEDICARE, OTHER, SELFPAY ==
[2020-12-07] VITALS (12 sets, daily range): BP systolic 119–155; BP diastolic 43–73; PULSE 54–65; RESP 10–18; TEMP 36.6–36.8; O2SAT 95–100; BMI 23.3
--- NOTE | 2020-12-07 09:43 | PM.PREOP ---
Pre-operative Note Interval Note History & Physical reviewed/Exam performed by Physician: Yes Changes to H&P: No
[2020-12-07 09:45] LABS: COVID19 -Nasal RAPID Negative (Negative)
[2020-12-07] MEDS: LACTATED RINGERS 1,000 ML 42 ML IV ×2 (10:38→12:38)
[2020-12-07] MEDS: CEFAZOLIN 1 GM VIAL 2 GM IV (11:00)
--- NOTE | 2020-12-07 11:04 | SUR.OPER ---
Supine on padded OR bed, head on pillow, arms secured on padded arm boards at <90 degrees abduction, legs uncrossed, safety belt at thigh, tape over blanket over lower legs.
[2020-12-07] MEDS: BUPIVACAINE 0.25% W/ EPI 30 ML VIAL INJ (11:09)
[2020-12-07] MEDS: BUPIVACAINE LIPOSOME 266 MG/20 ML VIAL INJ (11:09)
--- NOTE | 2020-12-07 12:55 | P.OP_ITS ---
Operative Date/Time/Diagnoses Date of procedure: 12/07/20 Time of procedure: 12:55 Pre-op diagnosis: Right inguinal hernia Post-op diagnosis: same Procedure & Clinicians Procedure: 1. Right inguinal hernia repair with mesh (see 3 x 6 inch Bard flat mesh). Same procedure as scheduled: Yes Indications: 1. Symptomatic right inguinal hernia. Surgeon: Gavino Navas Click Yes if Unassisted: Yes Anesthesia Type: General and Local (1.33% Exparel) Operative Notes Findings: Indirect inguinal hernia with moderately thickened sac extending to about the mid inguinal canal. The internal ring was attenuated and enlarged. A tongue of preperitoneal fat was also herniating through the internal ring and was adherent to the cord proper. Both the hernia sac she and the tongue of fat were dissected separately from the cord. Closure Type: primary Specimen(s): none sent Estimated Blood Loss (mL): 5 Blood products transfused: none Procedure in detail: Patient was positioned in supine was administered general anesthesia. The abdomen, genitalia, and groin were then prepped and draped in sterile fashion. Local anesthetic was then used to infiltrate skin and subcutaneous tissue over the right inguinal canal. An oblique incision was made over the right inguinal canal and the subcutaneous fat and Neeta's fascia layer were divided using cautery and blunt technique. The external oblique fascia was encountered and a lunch tool incision was made along the orientation of the fibers with resultant opening of the external ring. Is cord and associated anatomy was then carefully examined and blunt cautery and sharp dissection were then undertaken to separate the cord proper from a tongue of herniated preperitoneal fat and the indirect inguinal hernia sac itself. The sac was devoid of intra-abdominal contents or adhesions. A high suture ligation was performed using 2-0 PDS. The internal ring was repaired with [id number] 2- 0 PDS as well. The hernia sac and tongue of preperitoneal fat repositioned in the space behind the inner abdominal wall. Next, a 3 x 6 in sheet of Bard mesh was selected. It was then tailored appropriately to fit beneath the external oblique fascia. Lateral crossing tails were created with a stellate opening to accommodate the cord at the internal ring. The mesh was positioned and secured in place with interrupted 3- 0 Prolene. The testis and cord were then repositioned anatomically. Two 0 PDS was then used to close external oblique fascia in a running fashion. Neeta's fascia was reapproximated using the same suture and technique. The skin edges were then reapproximated with a running 4-0 Monocryl using a subcuticular technique. The skin surface was then cleaned and dried and a thin strip a Telfa pad was applied to the incision line. Over this a medium-sized Op site was applied to the skin for a Bioclusive dressing at the close of the case. The patient was then awakened, transferred to [facility], and transferred to recovery. Complications: none Post-operative Condition: stable Disposition: PACU Plan for aftercare: Discharge home
[2020-12-07] MEDS: OXYCODONE/ACETAMINOPHEN 5/325 TABLET 1 TAB PO (13:38)
[2020-12-07] MEDS: ONDANSETRON 4 MG/2 ML INJ IV (13:38)
== END 2020-12-07 14:10 | disposition home or self-care (01) ==
PROVIDERS: PCP Family Medicine; Referring Provider Specialist; Visit Provider Specialist
PROC: (CPT 49505; principal; 2020-12-07 10:45)
DX: K40.90 Unilateral inguinal hernia, without obstruction or gangrene, not specified as recurrent (principal); E11.9 Type 2 diabetes mellitus without complications; Z79.84 Long term (current) use of oral hypoglycemic drugs; Z20.822 Contact with and (suspected) exposure to COVID-19
CPT/HCPCS: 49505; 82962; 87635; C1781; C9290; J0690; J1100; J1885; J2250; J2405; J2704; J3010

== ENCOUNTER → 2021-01-10 11:07 | Outpatient (CLI) | payer MEDICARE, OTHER, SELFPAY | PROVIDERS: PCP Family Medicine; Visit Provider Specialist | DX: R30.0 Dysuria (principal); Z48.89 Encounter for other specified surgical aftercare | CPT/HCPCS: 51798; 81002; 87077; 87086; 87186 ==

== ENCOUNTER → 2021-02-18 08:44 | Outpatient (CLI) | payer MEDICARE, OTHER, SELFPAY ==
[2021-02-18 20:01] LABS: Prostate Specific Antigen 1.64 ng/mL (0.10-4.00)
== END ==
PROVIDERS: PCP Family Medicine; Visit Provider Specialist
DX: N13.8 Other obstructive and reflux uropathy (principal); N40.1 Benign prostatic hyperplasia with lower urinary tract symptoms; R30.0 Dysuria
CPT/HCPCS: 84153

== ENCOUNTER 2021-05-07 16:16 | Emergency (ER) | payer MEDICARE, OTHER, SELFPAY ==
[2021-05-07] VITALS (10 sets, daily range): BP systolic 164–177; BP diastolic 71–77; PULSE 68–111; RESP 23–45; TEMP 37.5–37.6; O2SAT 68–100; BMI 23.7
--- NOTE | 2021-05-07 16:18 | DI.RAD.S_ITS ---
PROCEDURE: XR CHEST 1V INDICATIONS: suspected sepsis TECHNIQUE: One view of the chest was acquired. COMPARISON: [facility], , CHEST 2 VIEW, 02/18/2008, 10:19. FINDINGS: Surgical changes and devices: None. Lungs and pleura: Bibasilar opacities are. Mediastinum: Mediastinal contours appear normal. Heart size is mildly prominent. Bones and chest wall: No suspicious bony lesions. Overlying soft tissues appear unremarkable. IMPRESSION: Bibasilar opacities suggestive pneumonia versus dependent edema. Dictated by: Lakeisha Solano M.D. on 05/07/2021 at 17:06 Approved by: Lakeisha Solano M.D. on 05/07/2021 at 17:07
[2021-05-07 16:56] LABS: Add Manual Diff / Slide Review NO; Basophils Absolute Auto 100 /uL (0-100); Basophils Percent Auto 0.4 % (0-2); Eosinophils Absolute Auto 100 /uL (0-450); Eosinophils Percent Auto 0.4 % (2-4); Hematocrit 37.5 % (41-53); Hemoglobin 12.2 g/dL (13.5-17.5); Lymphocytes Absolute Auto 600 /uL (1100-4500); Lymphocytes Percent Auto 4.4 % (25-40); Mean Corpuscular HGB Conc 32.6 % (30-36); Mean Corpuscular Hemoglobin 30.8 PG (26-34); Mean Corpuscular Volume 94.6 fL (80-100); Monocytes Absolute Auto 900 /uL (0-900); Monocytes Percent Auto 6.5 % (3-14); Neutrophils Absolute Auto 12300 /uL (1500-7000); Neutrophils Percent Auto 88.3 % (50-75); Platelet Count 250 X10^3/uL (150-400); Red Blood Cell Count 3.96 X10^6/uL (4.5-5.9); Red Cell Distribution Width 13.9 % (11.6-14.8); White Blood Cell Count 13.9 X10^3/uL (4.5-11.0)
[2021-05-07 17:05] LABS: Appearance Urine UA CLOUDY; Bilirubin Urine UA NEGATIVE (NEGATIVE); Color Urine UA YELLOW; Glucose Urine UA NEGATIVE (Negative); Ketones Urine UA NEGATIVE (NEGATIVE); Leukocyte Esterase Urine UA 2+ (NEGATIVE); Nitrite Urine UA NEGATIVE (Negative); Occult Blood Urine UA 3+ (Negative); Protein Urine UA 1+ (Negative); Urobilinogen Urine UA 0.2 E.U./dL (0.2); pH Urine UA 6.5 (4.5-8.0)
[2021-05-07 17:12] LABS: Lactate (Lactic Acid) 1.1 mmol/L (0.7-2.1)
[2021-05-07 17:13] LABS: Alanine Aminotransferase 14 IU/L (<50); Albumin 4.2 g/dL (3.5-5.0); Albumin Globulin Ratio 1.4 (1.0-2.8); Alkaline Phosphatase 82 U/L (38-126); Aspartate Aminotransferase 19 IU/L (17-59); BUN Creatinine Ratio 18.2 (6-22); Bilirubin Total 0.5 mg/dL (0.2-1.3); Blood Urea Nitrogen 35 mg/dL (9-20); Calcium 9.6 mg/dL (8.4-10.2); Carbon Dioxide 28 mmol/L (22-32); Chloride 106 mmol/L (98-107); Estimated Glomerular Filt Rate 34.1 mL/min (>60); Glucose 141 mg/dL (80-110); HEMOLYSIS < 15 (0-50); Lipase 59 U/L (23-300); Potassium 4.9 mmol/L (3.4-5.1); Sodium 141 mmol/L (137-145); Total Protein 7.2 g/dL (6.3-8.2)
--- NOTE | 2021-05-07 17:15 | DI.RAD.S_ITS ---
PROCEDURE: XR CHEST 1V INDICATIONS: Syncope TECHNIQUE: One view of the chest was acquired. COMPARISON: [facility], CR, XR CHEST 1V, 05/07/2021, 16:31. FINDINGS: Surgical changes and devices: None. Lungs and pleura: Single lateral view demonstrates mild appearance of retrocardiac opacity likely corresponding to bibasilar opacity seen on AP view. Mediastinum: Mediastinal contours appear normal. Heart size is normal. Bones and chest wall: No suspicious bony lesions. Overlying soft tissues appear unremarkable. IMPRESSION: Retrocardiac opacities suggestive of airspace disease such as pneumonia. Dictated by: Lakeisha Solano M.D. on 05/07/2021 at 17:34 Approved by: Lakeisha Solano M.D. on 05/07/2021 at 17:35
[2021-05-07 17:20] LABS: Bacteria Urine None Seen; Culture Indicated Urine Specimen Cultured; RBC Urine 10-30/HPF (0-5/HPF); WBC Urine 30-100/HPF (0-5/HPF)
[2021-05-07 17:24] LABS: Troponin I < 0.012 ng/mL (0.01-0.034)
[2021-05-07 17:29] LABS: Procalcitonin 0.13 ng/mL (<0.5)
[2021-05-07] MEDS: LACTATED RINGERS 1,000 ML 1000 ML IV (17:40)
[2021-05-07] MEDS: ACETAMINOPHEN 325 MG TABLET 975 MG PO (17:52)
[2021-05-07] MEDS: levoFLOXacin 250 MG TABLET 750 MG PO (18:15)
[2021-05-07 18:40] LABS: COVID19 -Nasal RAPID Negative (Negative)
--- NOTE | 2021-05-07 18:53 | PC.NURSE ---
syncopal episode. Ambulated independently to bathroom.
[2021-05-08 09:44] LABS: Acinetobacter baumannii Not Detected (Not Detect); Candida albicans Not Detected (Not Detect); Candida glabrata Not Detected (Not Detect); Candida krusei Not Detected (Not Detect); Candida parapsilosis Not Detected (Not Detect); Candida tropicalis Not Detected (Not Detect); E. coli Not Detected (Not Detect); Enterobacter cloacae complex Not Detected (Not Detect); Enterobacteriaceae species Not Detected (Not Detect); Enterococcus species Detected (Not Detect); Haemophilus influenzae Not Detected (Not Detect); Listeria monocytogenes Not Detected (Not Detect); Neisseria meningitidis Not Detected (Not Detect); Proteus species Not Detected (Not Detect); Pseudomonas aeruginosa Not Detected (Not Detect); Serratia marcescens Not Detected (Not Detect); Staphylococcus species Not Detected (Not Detect); Streptococcus agalactiae (Gr B Not Detected (Not Detect); Streptococcus pneumonia Not Detected (Not Detect); Streptococcus pyogenes (Gr A) Not Detected (Not Detect); Streptococcus species Not Detected (Not Detect); Vancomycin-rest genes A/B Not Detected (Not Detect)
--- NOTE | 2021-05-15 14:49 | ED_ITS ---
HPI - Fever <Karsten Murphy PA-C - Last Filed: 05/15/21 15:21> General Chief Complaint: Fever Stated Complaint: FEVER Time Seen by Provider: 05/07/21 16:21 History of Present Illness HPI Narrative: 76-year-old male with past medical history bladder cancer, type 2 diabetes, hyperlipidemia, BPH, frequent UTIs, hypertension presents to the ED with fever, syncope. Patient states that he had an episode of lightheadedness where he lowered himself to the floor. He denies hitting his head. patient endorses fevers, chills, fatigue, weakness. Patient denies chest pain, shortness of breath, cough, abdominal pain, nausea, vomiting, dysuria, flank pain. Patient has a history of bacteremia with Enterococcus due to UTIs. Patient is not on blood thinners. Related Data Home Medications Medication Instructions Recorded Confirmed atorvastatin 10 mg tablet 10 mg PO BEDTIME 08/05/19 05/13/21 fish, borage, flaxseed oils-omega 1 cap PO BID 08/05/19 05/13/21 3,6,9 comb no.1 1,200 mg capsule ([place] 3-6-9) lisinopril 2.5 mg tablet 2.5 mg PO DAILY 08/05/19 05/13/21 loratadine 10 mg tablet 10 mg PO DAILY PRN 11/04/19 05/13/21 (Allerclear) ascorbic acid (vitamin C) 1,000 mg 1,000 mg PO DAILY 12/07/20 05/13/21 tablet (Vitamin C) cholecalciferol (vitamin D3) 25 25 mcg PO DAILY 05/08/21 05/13/21 mcg (1,000 unit) capsule (Vitamin D3) melatonin 5 mg tablet 5 mg PO BEDTIME PRN 05/08/21 05/13/21 Previous Rx's Medication Instructions Recorded metformin 1,000 mg tablet 1,000 mg PO BIDCC #180 tab 10/14/16 tamsulosin 0.4 mg capsule 0.4 mg PO BID #180 cap 12/06/20 finasteride 5 mg tablet 5 mg PO DAILY #90 tab 02/21/21 amoxicillin 500 mg tablet 500 mg PO TID 10 Days #30 tab 05/10/21 levofloxacin 750 mg tablet 750 mg PO Q48H 10 Days #5 tab 05/10/21 Review of Systems <Karsten Murphy PA-C - Last Filed: 05/15/21 15:21> Constitutional Constitutional: Reports chills, Reports fatigue, Reports fever(s), Denies frequent falls, Reports lethargy and Reports weakness Eyes Eyes: Denies change in vision, Denies eye discharge, Denies irritation and Denies loss of vision ENT Ears, Nose, Mouth, and Throat: Denies change in voice, Denies dizziness, Denies neck pain, Denies sore throat and Denies throat swelling Cardiovascular Cardiovascular: Denies chest pain, Denies irregular heart rhythm, Denies lightheadedness, Denies palpitations, Denies dyspnea, Denies dyspnea on exertion and Denies orthopnea Respiratory Respiratory: Denies cough, Denies dyspnea, Denies dyspnea on exertion and Denies wheezing Gastrointestinal Gastrointestinal: Denies abdominal pain, Denies change in bowel habits, Denies diarrhea, Denies nausea and Denies vomiting Musculoskeletal Musculoskeletal: Denies neck pain and Denies numbness Integumentary/Breasts Skin/Breast: Denies pruritus, Denies erythema, Denies rash and Denies wounds Neurologic Neurologic: Denies behavioral changes, Denies confusion, Denies dizziness, Denies frequent falls, Denies loss of vision, Denies numbness and Reports weakness Psychiatric Psychiatric: Denies anxiety, Denies behavioral changes, Denies confusion, Denies depression, Denies homicidal ideation and Denies suicidal ideation Endocrine Endocrine: Reports fatigue, Denies flushing and Denies palpitations Hematologic/Lymphatic Hematologic/Lymphatic: Denies easy bruising Allergic/Immunologic Allergic/Immunologic: Denies urticaria, Denies throat swelling and Denies wheezing Patient History <Karsten Murphy PA-C - Last Filed: 05/15/21 15:21> Medical History Age-related nuclear cataract Atrial enlargement, bilateral Bladder cancer (07/22/19) Bladder tumor BPH (benign prostatic hyperplasia) BPH w urinary obs/LUTS CKD (chronic kidney disease) Class 1 obesity (09/18/15) Diabetes Easy bruisability Former smoker History of chemotherapy History of primary bladder cancer History of UTI HLD (hyperlipidemia) HTN (hypertension) Presence of intraocular lens Recurrent malignant neoplasm of bladder Right inguinal hernia Surgical History H/O tooth extraction H/O vasectomy History of colonoscopy Hx of bilateral cataract extraction Hx of cystoscopy (07/26/19) Hx of cystoscopy (10/27/19) Hx of cystoscopy (11/18/19) Hx of cystoscopy (05/03/20) Hx of cystoscopy (05/14/20) Hx of transurethral destruction of bladder lesion (08/05/19) Family History Mother No problems noted. Other Diabetes mellitus Social History household members: spouse Smoking Status: Former smoker alcohol intake: former Smoking Status: Former smoker Substance Use Type: does not use Exam <Karsten Murphy PA-C - Last Filed: 05/15/21 15:21> Initial Vital Signs Initial Vital Signs: Vital Signs Pulse Rate 83 05/07/21 16:21 Pulse Oximetry 98 05/07/21 16:21 Const General: cooperative HENMT Head: normocephalic and atraumatic Ears: external ears normal and TM's normal bilaterally Nose: external nose normal and No nasal discharge Face and sinus: sinuses nontender, face symmetric, no sinus tenderness and No dry mucous membranes Mouth: oral mucosae normal and No moist mucous membranes Teeth and gingiva: dentition normal Throat: tonsils normal and uvula midline Eyes General: appearance normal, both eyes and all related structures Eyelids: eyelids normal Conjunctivae: conjunctivae normal Sclera: sclerae normal Pupils: PERRL EOM: EOM intact bilaterally Neck Neck: normal visual inspection, trachea midline, No lymphadenopathy, No midline deformity and No JVD Lymphatic: No lymphedema Chest Chest: normal inspection of the chest Resp Effort & Inspection: normal respiratory effort, able to speak in complete sentences, no respiratory distress and no use of accessory muscles Auscultation: clear to auscultation bilaterally, no rales, no rhonchi and no wheezes Cardio Rate: regular rate Rhythm: regular rhythm Heart Sounds: no click, no gallops, no murmurs and no rubs Pulses: normal peripheral pulses GI Inspection: non-distended Palpation: soft, no hepatosplenomegaly, No guarding, No pulsatile mass and No tender Auscultation: normal bowel sounds Back/Spine/Pelvis Back: No CVA tenderness Cervical Spine: cervical ROM normal and No pain with cervical ROM Thoracic/Lumbar Spine: thoracic and lumbar spine normal to inspection Skin General: no rashes or lesions noted, No jaundice and No petechiae Neuro General: patient alert, patient oriented x3, gait normal and no focal motor defi cits Speech: speech normal Extrem General: full ROM, no clubbing, cyanosis or edema, no pedal edema and no calf tenderness Psych Appearance: well kempt Mental Status: mental status grossly normal Attitude: cooperative Thought Content: normal and suicidality Judgment: judgment good <Jamie Montoya DO - Last Filed: 05/15/21 15:45> Initial Vital Signs Initial Vital Signs: Vital Signs Pulse Rate 83 05/07/21 16:21 Pulse Oximetry 98 05/07/21 16:21 Course <Karsten Murphy PA-C - Last Filed: 05/15/21 15:21> Course Course Narrative: UA positive for UTI, chest x-ray positive for pneumonia. patient has history of Enterococcus bacteremia. Will start patient on Levaquin , discharge home with a prescription for Levaquin, ED return precautions. Orders Ordered: Discontinued Medications Acetaminophen (Acetaminophen 325 Mg Tablet) 975 mg PO NOW ONE Stop: 05/07/21 17:20 Last Admin: 05/07/21 17:52 Dose: 975 mg Documented by: LUANN Sodium Chloride (Normal Saline 0.9%) 1,000 mls @ 1,000 mls/hr IV BOLUS ONE Stop: 05/07/21 17:17 Last Admin: 05/07/21 17:45 Dose: Not Given Documented by: LUANN Lactated Ringer's (Lactated Ringers) 1,000 mls @ 1,000 mls/hr IV BOLUS ONE Stop: 05/07/21 18:44 Last Infusion: 05/07/21 18:47 Dose: 0 mls/hr Documented by: Admin: 05/07/21 17:40 Dose: 1,000 mls/hr Documented by: LUANN Levofloxacin (Levofloxacin 250 Mg Tablet) 750 mg PO NOW ONE Stop: 05/07/21 17:53 Last Admin: 05/07/21 18:15 Dose: 750 mg Documented by: LUANN <Jamie Montoya DO - Last Filed: 05/15/21 15:45> Orders Ordered: Discontinued Medications Acetaminophen (Acetaminophen 325 Mg Tablet) 975 mg PO NOW ONE Stop: 05/07/21 17:20 Last Admin: 05/07/21 17:52 Dose: 975 mg Documented by: LUANN Sodium Chloride (Normal Saline 0.9%) 1,000 mls @ 1,000 mls/hr IV BOLUS ONE Stop: 05/07/21 17:17 Last Admin: 05/07/21 17:45 Dose: Not Given Documented by: LUANN Lactated Ringer's (Lactated Ringers) 1,000 mls @ 1,000 mls/hr IV BOLUS ONE Stop: 05/07/21 18:44 Last Infusion: 05/07/21 18:47 Dose: 0 mls/hr Documented by: Admin: 05/07/21 17:40 Dose: 1,000 mls/hr Documented by: LUANN Levofloxacin (Levofloxacin 250 Mg Tablet) 750 mg PO NOW ONE Stop: 05/07/21 17:53 Last Admin: 05/07/21 18:15 Dose: 750 mg Documented by: LUANN MDM - Fever <Karsten Murphy PA-C - Last Filed: 05/15/21 15:21> Medical Records Attestation: I reviewed the patient's medical records. Lab Data Attestation: I reviewed the patient's lab results. Lab results narrative: WBC 13.9, creatinine 1.92. UA positive for UTI. Result diagrams: 05/07/21 16:44 05/07/21 16:44 Labs: Lab Results 05/07/21 05/07/21 05/07/21 Range/Units 16:20 16:44 16:44 WBC 13.9 H (4.5-11.0) X10^3/uL RBC 3.96 L (4.5-5.9) X10^6/uL Hgb 12.2 L (13.5-17.5) g/dL Hct 37.5 L (41-53) % MCV 94.6 (80-100) fL MCH 30.8 (26-34) PG MCHC 32.6 (30-36) % RDW 13.9 (11.6-14.8) % Plt Count 250 (150-400) X10^3/uL Neut % (Auto) 88.3 H (50-75) % Lymph % (Auto) 4.4 L (25-40) % [place] % (Auto) 6.5 (3-14) % Eos % (Auto) 0.4 L (2-4) % Baso % (Auto) 0.4 (0-2) % Neut # (Auto) 47251 H (0248-7459) /uL Lymph # (Auto) 600 L (3436-8686) /uL [place] # (Auto) 900 (0-900) /uL Eos # (Auto) 100 (0-450) /uL Baso # (Auto) 100 (0-100) /uL Sodium 141 (137-145) mmol/L Potassium 4.9 (3.4-5.1) mmol/L Chloride 106 (98-107) mmol/L Carbon Dioxide 28 (22-32) mmol/L BUN 35 H (9-20) mg/dL Creatinine 1.92 H (0.66-1.25) mg/dL Estimated GFR 34.1 L (>60) mL/min BUN/Creatinine Ratio 18.2 (6-22) Glucose 141 H (80-110) mg/dL Lactate (0.7-2.1) mmol/L Calcium 9.6 (8.4-10.2) mg/dL Total Bilirubin 0.5 (0.2-1.3) mg/dL AST 19 (17-59) IU/L ALT 14 (<50) IU/L Alkaline Phosphatase 82 (38-126) U/L Troponin I (0.01-0.034) ng/mL Total Protein 7.2 (6.3-8.2) g/dL Albumin 4.2 (3.5-5.0) g/dL Globulin 3.0 (1.7-4.1) g/dL Albumin/Globulin Ratio 1.4 (1.0-2.8) Lipase 59 (23-300) U/L Procalcitonin 0.13 (<0.5) ng/mL Urine Color Yellow Urine Appearance Cloudy Urine pH 6.5 (4.5-8.0) Ur Specific [place] 1.010 (1.000-1.035) Urine Protein 1+ H (Negative) Urine Glucose (UA) Negative (Negative) g/dL Urine Ketones Negative (NEGATIVE) Urine Occult Blood 3+ H (Negative) Urine Nitrate Negative (Negative) Urine Bilirubin Negative (NEGATIVE) Urine Urobilinogen 0.2 (0.2) E.U./dL Ur Leukocyte Esterase 2+ H (NEGATIVE) Urine RBC 10-30/hpf H (0-5/HPF) Urine WBC 30-100/hpf H (0-5/HPF) Urine Bacteria None seen (None) Ur Culture Indicated? Specimen cultured A. baumannii (PCR) (Not Detect) Darcy albicans (PCR) (Not Detect) C. glabrata (PCR) (Not Detect) C. krusei (PCR) (Not Detect) C. parapsilosis (PCR) (Not Detect) C. tropicalis (PCR) (Not Detect) SARS-CoV-2 (PCR) (Negative) Enterobacteriac sp PCR (Not Detect) E. cloacae complex PCR (Not Detect) Enterococcus sp PCR (Not Detect) E. coli (PCR) (Not Detect) H. influenzae (PCR) (Not Detect) Klebsiella oxytoca PCR (Not Detect) Klebsiella pneumoniae (Not Detect) List. monocytogenes PCR (Not Detect) N. meningitidis (PCR) (Not Detect) Proteus species (PCR) (Not Detect) Serratia marcescens PCR (Not Detect) Staphylococcus sp PCR (Not Detect) Staph aureus (PCR) (Not Detect) mecA-Methicil Res Gene Streptococcus sp PCR (Not Detect) Group A Strep (PCR) (Not Detect) Strep agalactiae (PCR) (Not Detect) Strep pneumoniae (PCR) (Not Detect) P. aeruginosa (PCR) (Not Detect) Arnav/B-Vanco Res Genes (Not Detect) KPC-Carbap Res Gene PCR 05/07/21 05/07/21 05/07/21 Range/Units 16:44 16:44 16:44 WBC (4.5-11.0) X10^3/uL RBC (4.5-5.9) X10^6/uL Hgb (13.5-17.5) g/dL Hct (41-53) % MCV (80-100) fL MCH (26-34) PG MCHC (30-36) % RDW (11.6-14.8) % Plt Count (150-400) X10^3/uL Neut % (Auto) (50-75) % Lymph % (Auto) (25-40) % [place] % (Auto) (3-14) % Eos % (Auto) (2-4) % Baso % (Auto) (0-2) % Neut # (Auto) (5990-3412) /uL Lymph # (Auto) (3533-0106) /uL [place] # (Auto) (0-900) /uL Eos # (Auto) (0-450) /uL Baso # (Auto) (0-100) /uL Sodium (137-145) mmol/L Potassium (3.4-5.1) mmol/L Chloride (98-107) mmol/L Carbon Dioxide (22-32) mmol/L BUN (9-20) mg/dL Creatinine (0.66-1.25) mg/dL Estimated GFR (>60) mL/min BUN/Creatinine Ratio (6-22) Glucose (80-110) mg/dL Lactate 1.1 (0.7-2.1) mmol/L Calcium (8.4-10.2) mg/dL Total Bilirubin (0.2-1.3) mg/dL AST (17-59) IU/L ALT (<50) IU/L Alkaline Phosphatase (38-126) U/L Troponin I < 0.012 (0.01-0.034) ng/mL Total Protein (6.3-8.2) g/dL Albumin (3.5-5.0) g/dL Globulin (1.7-4.1) g/dL Albumin/Globulin Ratio (1.0-2.8) Lipase (23-300) U/L Procalcitonin (<0.5) ng/mL Urine Color Urine Appearance Urine pH (4.5-8.0) Ur Specific [place] (1.000-1.035) Urine Protein (Negative) Urine Glucose (UA) (Negative) g/dL Urine Ketones (NEGATIVE) Urine Occult Blood (Negative) Urine Nitrate (Negative) Urine Bilirubin (NEGATIVE) Urine Urobilinogen (0.2) E.U./dL Ur Leukocyte Esterase (NEGATIVE) Urine RBC (0-5/HPF) Urine WBC (0-5/HPF) Urine Bacteria (None) Ur Culture Indicated? A. baumannii (PCR) Not detected (Not Detect) Darcy albicans (PCR) Not detected (Not Detect) C. glabrata (PCR) Not detected (Not Detect) C. krusei (PCR) Not detected (Not Detect) C. parapsilosis (PCR) Not detected (Not Detect) C. tropicalis (PCR) Not detected (Not Detect) SARS-CoV-2 (PCR) (Negative) Enterobacteriac sp PCR Not detected (Not Detect) E. cloacae complex PCR Not detected (Not Detect) Enterococcus sp PCR Detected H (Not Detect) E. coli (PCR) Not detected (Not Detect) H. influenzae (PCR) Not detected (Not Detect) Klebsiella oxytoca PCR Not detected (Not Detect) Klebsiella pneumoniae Not detected (Not Detect) List. monocytogenes PCR Not detected (Not Detect) N. meningitidis (PCR) Not detected (Not Detect) Proteus species (PCR) Not detected (Not Detect) Serratia marcescens PCR Not detected (Not Detect) Staphylococcus sp PCR Not detected (Not Detect) Staph aureus (PCR) Not detected (Not Detect) mecA-Methicil Res Gene Not Reportable Streptococcus sp PCR Not detected (Not Detect) Group A Strep (PCR) Not detected (Not Detect) Strep agalactiae (PCR) Not detected (Not Detect) Strep pneumoniae (PCR) Not detected (Not Detect) P. aeruginosa (PCR) Not detected (Not Detect) Arnav/B-Vanco Res Genes Not detected (Not Detect) KPC-Carbap Res Gene PCR Not Reportable 05/07/21 Range/Units 18:00 WBC (4.5-11.0) X10^3/uL RBC (4.5-5.9) X10^6/uL Hgb (13.5-17.5) g/dL Hct (41-53) % MCV (80-100) fL MCH (26-34) PG MCHC (30-36) % RDW (11.6-14.8) % Plt Count (150-400) X10^3/uL Neut % (Auto) (50-75) % Lymph % (Auto) (25-40) % [place] % (Auto) (3-14) % Eos % (Auto) (2-4) % Baso % (Auto) (0-2) % Neut # (Auto) (2993-6582) /uL Lymph # (Auto) (4552-6254) /uL [place] # (Auto) (0-900) /uL Eos # (Auto) (0-450) /uL Baso # (Auto) (0-100) /uL Sodium (137-145) mmol/L Potassium (3.4-5.1) mmol/L Chloride (98-107) mmol/L Carbon Dioxide (22-32) mmol/L BUN (9-20) mg/dL Creatinine (0.66-1.25) mg/dL Estimated GFR (>60) mL/min BUN/Creatinine Ratio (6-22) Glucose (80-110) mg/dL Lactate (0.7-2.1) mmol/L Calcium (8.4-10.2) mg/dL Total Bilirubin (0.2-1.3) mg/dL AST (17-59) IU/L ALT (<50) IU/L Alkaline Phosphatase (38-126) U/L Troponin I (0.01-0.034) ng/mL Total Protein (6.3-8.2) g/dL Albumin (3.5-5.0) g/dL Globulin (1.7-4.1) g/dL Albumin/Globulin Ratio (1.0-2.8) Lipase (23-300) U/L Procalcitonin (<0.5) ng/mL Urine Color Urine Appearance Urine pH (4.5-8.0) Ur Specific [place] (1.000-1.035) Urine Protein (Negative) Urine Glucose (UA) (Negative) g/dL Urine Ketones (NEGATIVE) Urine Occult Blood (Negative) Urine Nitrate (Negative) Urine Bilirubin (NEGATIVE) Urine Urobilinogen (0.2) E.U./dL Ur Leukocyte Esterase (NEGATIVE) Urine RBC (0-5/HPF) Urine WBC (0-5/HPF) Urine Bacteria (None) Ur Culture Indicated? A. baumannii (PCR) (Not Detect) Darcy albicans (PCR) (Not Detect) C. glabrata (PCR) (Not Detect) C. krusei (PCR) (Not Detect) C. parapsilosis (PCR) (Not Detect) C. tropicalis (PCR) (Not Detect) SARS-CoV-2 (PCR) Negative (Negative) Enterobacteriac sp PCR (Not Detect) E. cloacae complex PCR (Not Detect) Enterococcus sp PCR (Not Detect) E. coli (PCR) (Not Detect) H. influenzae (PCR) (Not Detect) Klebsiella oxytoca PCR (Not Detect) Klebsiella pneumoniae (Not Detect) List. monocytogenes PCR (Not Detect) N. meningitidis (PCR) (Not Detect) Proteus species (PCR) (Not Detect) Serratia marcescens PCR (Not Detect) Staphylococcus sp PCR (Not Detect) Staph aureus (PCR) (Not Detect) mecA-Methicil Res Gene Streptococcus sp PCR (Not Detect) Group A Strep (PCR) (Not Detect) Strep agalactiae (PCR) (Not Detect) Strep pneumoniae (PCR) (Not Detect) P. aeruginosa (PCR) (Not Detect) Arnav/B-Vanco Res Genes (Not Detect) KPC-Carbap Res Gene PCR Imaging Data Chest x-ray: Radiologist's Impression: PROCEDURE:? XR CHEST 1V ? INDICATIONS:? suspected sepsis ? TECHNIQUE:? One view of the chest was acquired.? ? COMPARISON:? [facility], CHEST 2 VIEW, 02/18/2008, 10:19. ? FINDINGS:? ? Surgical changes and devices:? None.? ? Lungs and pleura:? Bibasilar opacities are. ? Mediastinum:? Mediastinal contours appear normal.? Heart size is mildly prominent. ? Bones and chest wall:? No suspicious bony lesions.? Overlying soft tissues appear unremarkable.? ? IMPRESSION:? Bibasilar opacities suggestive pneumonia versus dependent edema. ? ? Dictated by: Lakeisha Solano M.D. on 05/07/2021 at 17:06 ? ? Approved by: Lakeisha Solano M.D. on 05/07/2021 at 17:07 ? PROCEDURE: XR CHEST 1V INDICATIONS: Syncope TECHNIQUE: One view of the chest was acquired. COMPARISON: [facility], XR CHEST 1V, 05/07/2021, 16:31. FINDINGS: Surgical changes and devices: None. Lungs and pleura: Single lateral view demonstrates mild appearance of retrocardiac opacity likely corresponding to bibasilar opacity seen on AP view. Mediastinum: Mediastinal contours appear normal. Heart size is normal. Bones and chest wall: No suspicious bony lesions. Overlying soft tissues samina ear unremarkable. IMPRESSION: Retrocardiac opacities suggestive of airspace disease such as pneu monia. Dictated by: Lakeisha Solano M.D. on 05/07/2021 at 17:34 Approved by: Lakeisha Solano M.D. on 05/07/2021 at 17:35 ECG Data Interpretation: NSR, no acute ST-T changes MDM Narrative Medical decision making narrative: 76-year-old male with past medical history bladder cancer, type 2 diabetes, hyperlipidemia, BPH, frequent UTIs, hyperten slim presents to the ED with fever, syncope. for concern for UTI versus ACS versus pneumonia versus COVID-19 versus dehydration. Will order chest x-ray, labs, EKG, troponin, COVID-19 test, UA, blood cultures. will give Tylenol, IV fluids. Will reassess. <Jamie Montoya, - Last Filed: 05/15/21 15:45> Lab Data Labs: Lab Results 05/07/21 05/07/21 05/07/21 Range/Units 16:20 16:44 16:44 WBC 13.9 H (4.5-11.0) X10^3/uL RBC 3.96 L (4.5-5.9) X10^6/uL Hgb 12.2 L (13.5-17.5) g/dL Hct 37.5 L (41-53) % MCV 94.6 (80-100) fL MCH 30.8 (26-34) PG MCHC 32.6 (30-36) % RDW 13.9 (11.6-14.8) % Plt Count 250 (150-400) X10^3/uL Neut % (Auto) 88.3 H (50-75) % Lymph % (Auto) 4.4 L (25-40) % [place] % (Auto) 6.5 (3-14) % Eos % (Auto) 0.4 L (2-4) % Baso % (Auto) 0.4 (0-2) % Neut # (Auto) 24289 H (6235-8615) /uL Lymph # (Auto) 600 L (3032-0073) /uL [place] # (Auto) 900 (0-900) /uL Eos # (Auto) 100 (0-450) /uL Baso # (Auto) 100 (0-100) /uL Sodium 141 (137-145) mmol/L Potassium 4.9 (3.4-5.1) mmol/L Chloride 106 (98-107) mmol/L Carbon Dioxide 28 (22-32) mmol/L BUN 35 H (9-20) mg/dL Creatinine 1.92 H (0.66-1.25) mg/dL Estimated GFR 34.1 L (>60) mL/min BUN/Creatinine Ratio 18.2 (6-22) Glucose 141 H (80-110) mg/dL Lactate (0.7-2.1) mmol/L Calcium 9.6 (8.4-10.2) mg/dL Total Bilirubin 0.5 (0.2-1.3) mg/dL AST 19 (17-59) IU/L ALT 14 (<50) IU/L Alkaline Phosphatase 82 (38-126) U/L Troponin I (0.01-0.034) ng/mL Total Protein 7.2 (6.3-8.2) g/dL Albumin 4.2 (3.5-5.0) g/dL Globulin 3.0 (1.7-4.1) g/dL Albumin/Globulin Ratio 1.4 (1.0-2.8) Lipase 59 (23-300) U/L Procalcitonin 0.13 (<0.5) ng/mL Urine Color Yellow Urine Appearance Cloudy Urine pH 6.5 (4.5-8.0) Ur Specific [place] 1.010 (1.000-1.035) Urine Protein 1+ H (Negative) Urine Glucose (UA) Negative (Negative) g/dL Urine Ketones Negative (NEGATIVE) Urine Occult Blood 3+ H (Negative) Urine Nitrate Negative (Negative) Urine Bilirubin Negative (NEGATIVE) Urine Urobilinogen 0.2 (0.2) E.U./dL Ur Leukocyte Esterase 2+ H (NEGATIVE) Urine RBC 10-30/hpf H (0-5/HPF) Urine WBC 30-100/hpf H (0-5/HPF) Urine Bacteria None seen (None) Ur Culture Indicated? Specimen cultured A. baumannii (PCR) (Not Detect) Darcy albicans (PCR) (Not Detect) C. glabrata (PCR) (Not Detect) C. krusei (PCR) (Not Detect) C. parapsilosis (PCR) (Not Detect) C. tropicalis (PCR) (Not Detect) SARS-CoV-2 (PCR) (Negative) Enterobacteriac sp PCR (Not Detect) E. cloacae complex PCR (Not Detect) Enterococcus sp PCR (Not Detect) E. coli (PCR) (Not Detect) H. influenzae (PCR) (Not Detect) Klebsiella oxytoca PCR (Not Detect) Klebsiella pneumoniae (Not Detect) List. monocytogenes PCR (Not Detect) N. meningitidis (PCR) (Not Detect) Proteus species (PCR) (Not Detect) Serratia marcescens PCR (Not Detect) Staphylococcus sp PCR (Not Detect) Staph aureus (PCR) (Not Detect) mecA-Methicil Res Gene Streptococcus sp PCR (Not Detect) Group A Strep (PCR) (Not Detect) Strep agalactiae (PCR) (Not Detect) Strep pneumoniae (PCR) (Not Detect) P. aeruginosa (PCR) (Not Detect) Arnav/B-Vanco Res Genes (Not Detect) KPC-Carbap Res Gene PCR 05/07/21 05/07/21 05/07/21 Range/Units 16:44 16:44 16:44 WBC (4.5-11.0) X10^3/uL RBC (4.5-5.9) X10^6/uL Hgb (13.5-17.5) g/dL Hct (41-53) % MCV (80-100) fL MCH (26-34) PG MCHC (30-36) % RDW (11.6-14.8) % Plt Count (150-400) X10^3/uL Neut % (Auto) (50-75) % Lymph % (Auto) (25-40) % [place] % (Auto) (3-14) % Eos % (Auto) (2-4) % Baso % (Auto) (0-2) % Neut # (Auto) (9815-0562) /uL Lymph # (Auto) (9393-3677) /uL [place] # (Auto) (0-900) /uL Eos # (Auto) (0-450) /uL Baso # (Auto) (0-100) /uL Sodium (137-145) mmol/L Potassium (3.4-5.1) mmol/L Chloride (98-107) mmol/L Carbon Dioxide (22-32) mmol/L BUN (9-20) mg/dL Creatinine (0.66-1.25) mg/dL Estimated GFR (>60) mL/min BUN/Creatinine Ratio (6-22) Glucose (80-110) mg/dL Lactate 1.1 (0.7-2.1) mmol/L Calcium (8.4-10.2) mg/dL Total Bilirubin (0.2-1.3) mg/dL AST (17-59) IU/L ALT (<50) IU/L Alkaline Phosphatase (38-126) U/L Troponin I < 0.012 (0.01-0.034) ng/mL Total Protein (6.3-8.2) g/dL Albumin (3.5-5.0) g/dL Globulin (1.7-4.1) g/dL Albumin/Globulin Ratio (1.0-2.8) Lipase (23-300) U/L Procalcitonin (<0.5) ng/mL Urine Color Urine Appearance Urine pH (4.5-8.0) Ur Specific [place] (1.000-1.035) Urine Protein (Negative) Urine Glucose (UA) (Negative) g/dL Urine Ketones (NEGATIVE) Urine Occult Blood (Negative) Urine Nitrate (Negative) Urine Bilirubin (NEGATIVE) Urine Urobilinogen (0.2) E.U./dL Ur Leukocyte Esterase (NEGATIVE) Urine RBC (0-5/HPF) Urine WBC (0-5/HPF) Urine Bacteria (None) Ur Culture Indicated? A. baumannii (PCR) Not detected (Not Detect) Darcy albicans (PCR) Not detected (Not Detect) C. glabrata (PCR) Not detected (Not Detect) C. krusei (PCR) Not detected (Not Detect) C. parapsilosis (PCR) Not detected (Not Detect) C. tropicalis (PCR) Not detected (Not Detect) SARS-CoV-2 (PCR) (Negative) Enterobacteriac sp PCR Not detected (Not Detect) E. cloacae complex PCR Not detected (Not Detect) Enterococcus sp PCR Detected H (Not Detect) E. coli (PCR) Not detected (Not Detect) H. influenzae (PCR) Not detected (Not Detect) Klebsiella oxytoca PCR Not detected (Not Detect) Klebsiella pneumoniae Not detected (Not Detect) List. monocytogenes PCR Not detected (Not Detect) N. meningitidis (PCR) Not detected (Not Detect) Proteus species (PCR) Not detected (Not Detect) Serratia marcescens PCR Not detected (Not Detect) Staphylococcus sp PCR Not detected (Not Detect) Staph aureus (PCR) Not detected (Not Detect) mecA-Methicil Res Gene Not Reportable Streptococcus sp PCR Not detected (Not Detect) Group A Strep (PCR) Not detected (Not Detect) Strep agalactiae (PCR) Not detected (Not Detect) Strep pneumoniae (PCR) Not detected (Not Detect) P. aeruginosa (PCR) Not detected (Not Detect) Arnav/B-Vanco Res Genes Not detected (Not Detect) KPC-Carbap Res Gene PCR Not Reportable 05/07/21 Range/Units 18:00 WBC (4.5-11.0) X10^3/uL RBC (4.5-5.9) X10^6/uL Hgb (13.5-17.5) g/dL Hct (41-53) % MCV (80-100) fL MCH (26-34) PG MCHC (30-36) % RDW (11.6-14.8) % Plt Count (150-400) X10^3/uL Neut % (Auto) (50-75) % Lymph % (Auto) (25-40) % [place] % (Auto) (3-14) % Eos % (Auto) (2-4) % Baso % (Auto) (0-2) % Neut # (Auto) (0353-4195) /uL Lymph # (Auto) (6776-3634) /uL [place] # (Auto) (0-900) /uL Eos # (Auto) (0-450) /uL Baso # (Auto) (0-100) /uL Sodium (137-145) mmol/L Potassium (3.4-5.1) mmol/L Chloride (98-107) mmol/L Carbon Dioxide (22-32) mmol/L BUN (9-20) mg/dL Creatinine (0.66-1.25) mg/dL Estimated GFR (>60) mL/min BUN/Creatinine Ratio (6-22) Glucose (80-110) mg/dL Lactate (0.7-2.1) mmol/L Calcium (8.4-10.2) mg/dL Total Bilirubin (0.2-1.3) mg/dL AST (17-59) IU/L ALT (<50) IU/L Alkaline Phosphatase (38-126) U/L Troponin I (0.01-0.034) ng/mL Total Protein (6.3-8.2) g/dL Albumin (3.5-5.0) g/dL Globulin (1.7-4.1) g/dL Albumin/Globulin Ratio (1.0-2.8) Lipase (23-300) U/L Procalcitonin (<0.5) ng/mL Urine Color Urine Appearance Urine pH (4.5-8.0) Ur Specific [place] (1.000-1.035) Urine Protein (Negative) Urine Glucose (UA) (Negative) g/dL Urine Ketones (NEGATIVE) Urine Occult Blood (Negative) Urine Nitrate (Negative) Urine Bilirubin (NEGATIVE) Urine Urobilinogen (0.2) E.U./dL Ur Leukocyte Esterase (NEGATIVE) Urine RBC (0-5/HPF) Urine WBC (0-5/HPF) Urine Bacteria (None) Ur Culture Indicated? A. baumannii (PCR) (Not Detect) Darcy albicans (PCR) (Not Detect) C. glabrata (PCR) (Not Detect) C. krusei (PCR) (Not Detect) C. parapsilosis (PCR) (Not Detect) C. tropicalis (PCR) (Not Detect) SARS-CoV-2 (PCR) Negative (Negative) Enterobacteriac sp PCR (Not Detect) E. cloacae complex PCR (Not Detect) Enterococcus sp PCR (Not Detect) E. coli (PCR) (Not Detect) H. influenzae (PCR) (Not Detect) Klebsiella oxytoca PCR (Not Detect) Klebsiella pneumoniae (Not Detect) List. monocytogenes PCR (Not Detect) N. meningitidis (PCR) (Not Detect) Proteus species (PCR) (Not Detect) Serratia marcescens PCR (Not Detect) Staphylococcus sp PCR (Not Detect) Staph aureus (PCR) (Not Detect) mecA-Methicil Res Gene Streptococcus sp PCR (Not Detect) Group A Strep (PCR) (Not Detect) Strep agalactiae (PCR) (Not Detect) Strep pneumoniae (PCR) (Not Detect) P. aeruginosa (PCR) (Not Detect) Arnav/B-Vanco Res Genes (Not Detect) KPC-Carbap Res Gene PCR Discharge Plan Departure Patient Disposition: Home Clinical Impression: UTI (urinary tract infection) Qualifiers: Urinary tract infection type: site unspecified Hematuria presence: with hematuria Qualified Code(s): N39.0 - Urinary tract infection, site not specified Instructions: DI for Pneumonia -- Adult, DI for Urinary Tract Infection (UTI) Activity Restrictions/Additional Instructions: You were evaluated in the ED today for a fall, weakness today. Your chest x-ray shows some evidence of pneumonia, and your urine shows evidence of a UTI. You have been given the 1st dose of antibiotic Levaquin which will treat both conditions. Please complete your course of Levaquin. Follow-up with your PCP. Return to the ED if you experience worsening symptoms, chest pain, shortness of breath, fever, chills. Prescriptions: No Action metformin 1,000 MG tablet 1,000 mg PO BIDCC Qty: 180 RF: 3 tamsulosin 0.4 mg capsule 0.4 mg PO BID Qty: 180 RF: 3 finasteride 5 mg tablet 5 mg PO DAILY Qty: 90 RF: 3 cholecalciferol (vitamin D3) [Vitamin D3] 25 mcg (1,000 unit) Capsule 25 mcg PO DAILY RF: 0 melatonin 5 mg Tablet 5 mg PO BEDTIME PRN (Reason: Sleep) RF: 0 amoxicillin 500 mg tablet 500 mg PO TID 10 Days Qty: 30 RF: 0 levofloxacin 750 mg tablet 750 mg PO Q48H 10 Days Qty: 5 RF: 0 [place] 3-6-9 1,200 mg Capsule 1 cap PO BID RF: 0 atorvastatin 10 mg Tablet 10 mg PO BEDTIME RF: 0 lisinopril 2.5 mg Tablet 2.5 mg PO DAILY RF: 0 loratadine [Allerclear] 10 mg Tablet 10 mg PO DAILY PRN (Reason: Allergy Symptoms) RF: 0 ascorbic acid (vitamin C) [Vitamin C] 1,000 mg Tablet 1,000 mg PO DAILY RF: 0 Referrals: Jamie Escobedo MD [Primary Care Provider] - <Jamie Montoya DO - Last Filed: 05/15/21 15:45> Cosign ED Attending Cosignature Attestation: Dr Montoya Co-Sign Statement: I was available for consultation during this patient's emergency department visit. This chart is signed by myself for administrative purposes only. I did not have direct contact with this patient during this visit. They were seen independently by the APC.
== END 2021-05-07 19:27 | disposition home or self-care (01) ==
PROVIDERS: Emergency Medicine; Emergency Provider Student in an Organized Health Care Education/Training Program; PCP Family Medicine
DX: N39.0 Urinary tract infection, site not specified (principal); R55 Syncope and collapse
CPT/HCPCS: 36415; 51701; 71045; 80053; 81001; 83605; 83690; 84145; 84484; 85025; 87040; 87077; 87086; 87150; 87186; 87205; 87635; 93005; 99284; C9803

== ENCOUNTER 2021-05-08 13:12 | Inpatient (IN) | payer MEDICARE, OTHER, SELFPAY ==
[2021-05-08] VITALS (11 sets, daily range): BP systolic 129–169; BP diastolic 52–73; PULSE 62–83; RESP 16–22; TEMP 37.1–38.2; O2SAT 94–98; BMI 23.7
--- NOTE | 2021-05-08 13:16 | DI.RAD.S_ITS ---
PROCEDURE: XR CHEST 1V INDICATIONS: suspected sepsis TECHNIQUE: One view of the chest was acquired. COMPARISON: [facility], CR, XR CHEST 1V, 05/07/2021, 17:10. FINDINGS: Surgical changes and devices: None. Lungs and pleura: Coarsened interstitial markings. No consolidation, pleural effusions or pneumothorax. Flattened contour of the diaphragms. Mediastinum: Mediastinal contours appear normal. Heart size is normal. Bones and chest wall: No suspicious bony lesions. Overlying soft tissues appear unremarkable. IMPRESSION: No acute cardiopulmonary abnormality. Dictated by: Devonte Heath M.D. on 05/08/2021 at 13:39 Approved by: Devonte Heath M.D. on 05/08/2021 at 13:40
--- NOTE | 2021-05-08 13:20 | ED.GENADULT ---
HPI - General Adult General Chief complaint: Fever Stated complaint: Possible sepsis Time Seen by Provider: 05/08/21 13:12 Source: patient and EMS Mode of arrival: EMS Limitations: no limitations History of Present Illness HPI narrative: Patient is a 76-year-old male who was brought in by EMS for evaluation of weakness. Patient was seen in this emergency department yesterday. Had a workup. Was found to have both pneumonia and urinary tract infection. Was given a prescription for Levaquin. Was discharged home. He stated that he did feel much better when he was discharged home yesterday than when he arrived to the emergency department yesterday. Overnight a blood culture had a preliminary positive result of Enterococcus. He has had Enterococcus UTIs in the past. We called the patient to see how he was doing. His states that he had become weak over night. Had actually spent several hours of sleep on the floor of the bathroom. Was unable to get up. She was advised to bring the patient back to the emergency department for further evaluation. Here in the ER patient reports generalized weakness. He does report some urinary frequency. No headache. No vision changes. No sore throat. No fevers. No chest pain. No shortness of breath. No abdominal pain. No constipation. No diarrhea. No rashes. No specific extremity weakness. No numbness and tingling in his extremities. He states that he did not hit his head when he fell. No neck pain. Related Data Home Medications Medication Instructions Recorded Confirmed atorvastatin 10 mg tablet 10 mg PO BEDTIME 08/05/19 02/20/21 fish, borage, flaxseed oils-omega 1 cap PO BID 08/05/19 02/20/21 3,6,9 comb no.1 1,200 mg capsule ([place] 3-6-9) lisinopril 2.5 mg tablet 2.5 mg PO DAILY 08/05/19 02/20/21 loratadine 10 mg tablet 10 mg PO DAILY PRN 11/04/19 02/20/21 (Allerclear) ascorbic acid (vitamin C) 1,000 mg 1,000 mg PO DAILY 12/07/20 02/20/21 tablet (Vitamin C) cyanocobalamin-liver extract tablet 1 tab PO DAILY 12/07/20 02/20/21 melatonin 10 mg tablet 10 mg PO BEDTIME PRN 12/07/20 02/20/21 cholecalciferol (vitamin D3) PO 03/19/21 03/19/21 Previous Rx's Medication Instructions Recorded metformin 1,000 mg tablet 1,000 mg PO BIDCC #180 tab 10/14/16 tamsulosin 0.4 mg capsule 0.4 mg PO BID #180 cap 12/06/20 finasteride 5 mg tablet 5 mg PO DAILY #90 tab 02/21/21 levofloxacin 750 mg tablet 750 mg PO DAILY 5 Days #5 tab 05/07/21 Allergies Allergy/AdvReac Type Severity Reaction Status Date / Time ralph Allergy Unknown Verified 03/19/21 13:13 cetirizine Allergy Unknown Verified 03/19/21 13:13 Review of Systems Constitutional Constitutional: Reports as per HPI and Reports system reviewed and no additional complaints, except as documented Eyes Eyes: Reports as per HPI and Reports system reviewed and no additional complaints, except as documented ENT Ears, Nose, Mouth, and Throat: Reports system reviewed and no additional complaints, except as documented Cardiovascular Cardiovascular: Reports as per HPI and Reports system reviewed and no additional complaints, except as documented Respiratory Respiratory: Reports as per HPI and Reports system reviewed and no additional complaints, except as documented Gastrointestinal Gastrointestinal: Reports as per HPI and Reports system reviewed and no additional complaints, except as documented Genitourinary Genitourinary: Reports system reviewed and no additional complaints, except as documented and Reports as per HPI Musculoskeletal Musculoskeletal: Reports system reviewed and no additional complaints, except as documented and Reports as per HPI Integumentary/Breasts Skin/Breast: Reports system reviewed and no additional complaints, except as documented and Reports as per HPI Neurologic Neurologic: Reports system reviewed and no additional complaints, except as documented and Reports as per HPI Psychiatric Psychiatric: Reports system reviewed and no additional complaints, except as documented and Reports as per HPI Endocrine Endocrine: Reports system reviewed and no additional complaints, except as documented Hematologic/Lymphatic On Anticoagulants: No Allergic/Immunologic Allergic/Immunologic: Reports system reviewed and no additional complaints, except as documented Patient History Medical History Age-related nuclear cataract Atrial enlargement, bilateral Bladder cancer (07/22/19) Bladder tumor BPH (benign prostatic hyperplasia) BPH w urinary obs/LUTS CKD (chronic kidney disease) Class 1 obesity (09/18/15) Diabetes Easy bruisability Former smoker History of chemotherapy History of primary bladder cancer History of UTI HLD (hyperlipidemia) HTN (hypertension) Presence of intraocular lens Recurrent malignant neoplasm of bladder Right inguinal hernia Surgical History (Updated 03/19/21 @ 17:37 by Radu Coyle MD) H/O tooth extraction H/O vasectomy History of colonoscopy Hx of bilateral cataract extraction Hx of cystoscopy (07/26/19) Hx of cystoscopy (10/27/19) Hx of cystoscopy (11/18/19) Hx of cystoscopy (05/03/20) Hx of cystoscopy (05/14/20) Hx of transurethral destruction of bladder lesion (08/05/19) Social History household members: spouse Smoking Status: Former smoker alcohol intake: former Smoking Status: Former smoker Substance Use Type: does not use Exam Initial Vital Signs Initial Vital Signs: Vital Signs Temperature 100.5 F H 05/08/21 13:24 Pulse Rate 73 05/08/21 13:24 Respiratory Rate 22 05/08/21 13:24 Blood Pressure 169/73 H 05/08/21 13:24 Pulse Oximetry 98 05/08/21 13:24 Const General: cooperative, healthy appearing, comfortable, well developed, well groomed and No ill appearing Limitations: mental status not altered HENMT Head: normal to inspection and normocephalic Nose: external nose normal Face and sinus: normal facial exam Eyes General: appearance normal, both eyes and all related structures Chest Chest: normal inspection of the chest, No crepitus and No tenderness Resp Effort & Inspection: normal respiratory effort Auscultation: clear to auscultation bilaterally Cardio Rate: regular rate Rhythm: regular rhythm GI Inspection: normal to inspection and non-distended Palpation: soft and No tender Skin Lesions: no lesions Rashes: no rashes Neuro General: patient alert, patient awake and patient oriented x3 Cognition: normal cognition Speech: speech normal Extrem General: capillary refill normal and No edema Psych Appearance: grossly normal and well kempt Course Orders Ordered: ED Orders 05/08/21 13:16 XR chest 1V Stat EKG-12 Lead Stat RT Consult Eval and Treat Now 05/08/21 14:10 Blood Culture Stat COVID19 - ADMIT ([employer] swab/PCR) Stat Complete Blood Count AUTO DIFF Stat Comprehensive Metabolic Panel Stat Lactate (Lactic Acid) Stat Lipase Stat Procalcitonin Stat 05/08/21 14:13 Urinalysis and Microscopic Stat Discontinued Medications Sodium Chloride (Normal Saline 0.9%) 1,000 mls @ 1,000 mls/hr IV BOLUS ONE Stop: 05/08/21 14:15 Last Admin: 05/08/21 14:29 Dose: 1,000 mls/hr Documented by: CJ Piperacillin Sod/Tazobactam (Sod 4.5 gm/ Sodium Chloride) 100 mls @ 200 mls/hr IV NOW ONE Stop: 05/08/21 14:03 Last Admin: 05/08/21 14:29 Dose: 200 mls/hr Documented by: CJ Vital Signs Vital signs: Vital Signs - 8 hr 05/08/21 13:24 Temperature 100.5 F H Pulse Rate 73 Respiratory Rate 22 Blood Pressure 169/73 H Pulse Oximetry 98 Medical Decision Making Medical Records Medical records reviewed: Yes I reviewed the patient's medical records. Lab Data Lab results reviewed: Yes I reviewed the patient's lab results. Result diagrams: 05/08/21 14:10 05/08/21 14:10 Labs: Lab Results 05/08/21 05/08/21 05/08/21 Range/Units 14:10 14:10 14:10 WBC 13.0 H (4.5-11.0) X10^3/uL RBC 3.54 L (4.5-5.9) X10^6/uL Hgb 10.9 L (13.5-17.5) g/dL Hct 33.4 L (41-53) % MCV 94.2 (80-100) fL MCH 30.7 (26-34) PG MCHC 32.6 (30-36) % RDW 14.1 (11.6-14.8) % Plt Count 201 (150-400) X10^3/uL Neut % (Auto) 87.4 H (50-75) % Lymph % (Auto) 3.6 L (25-40) % [place] % (Auto) 8.3 (3-14) % Eos % (Auto) 0.1 L (2-4) % Baso % (Auto) 0.6 (0-2) % Neut # (Auto) 54648 H (3428-2816) /uL Lymph # (Auto) 500 L (1213-3981) /uL [place] # (Auto) 1100 H (0-900) /uL Eos # (Auto) 0 (0-450) /uL Baso # (Auto) 100 (0-100) /uL Sodium 137 (137-145) mmol/L Potassium 4.1 (3.4-5.1) mmol/L Chloride 104 (98-107) mmol/L Carbon Dioxide 24 (22-32) mmol/L BUN 31 H (9-20) mg/dL Creatinine 1.96 H (0.66-1.25) mg/dL Estimated GFR 33.3 L (>60) mL/min BUN/Creatinine Ratio 15.8 (6-22) Glucose 120 H (80-110) mg/dL Lactate 1.4 (0.7-2.1) mmol/L Calcium 9.0 (8.4-10.2) mg/dL Total Bilirubin 0.6 (0.2-1.3) mg/dL AST 34 (17-59) IU/L ALT 15 (<50) IU/L Alkaline Phosphatase 63 (38-126) U/L Total Protein 6.5 (6.3-8.2) g/dL Albumin 3.8 (3.5-5.0) g/dL Globulin 2.7 (1.7-4.1) g/dL Albumin/Globulin Ratio 1.4 (1.0-2.8) Lipase 35 (23-300) U/L Procalcitonin 0.29 (<0.5) ng/mL Urine Color Urine Appearance Urine pH (4.5-8.0) Ur Specific [place] (1.000-1.035) Urine Protein (Negative) Urine Glucose (UA) (Negative) g/dL Urine Ketones (NEGATIVE) Urine Occult Blood (Negative) Urine Nitrate (Negative) Urine Bilirubin (NEGATIVE) Urine Urobilinogen (0.2) E.U./dL Ur Leukocyte Esterase (NEGATIVE) Urine RBC (0-5/HPF) Urine WBC (0-5/HPF) Ur Squamous Epith Cells (0-5/HPF) Urine Bacteria (None) Ur Culture Indicated? 05/08/ Range/Units 14:13 WBC (4.5-11.0) X10^3/uL RBC (4.5-5.9) X10^6/uL Hgb (13.5-17.5) g/dL Hct (41-53) % MCV (80-100) fL MCH (26-34) PG MCHC (30-36) % RDW (11.6-14.8) % Plt Count (150-400) X10^3/uL Neut % (Auto) (50-75) % Lymph % (Auto) (25-40) % [place] % (Auto) (3-14) % Eos % (Auto) (2-4) % Baso % (Auto) (0-2) % Neut # (Auto) (3358-2085) /uL Lymph # (Auto) (8514-6685) /uL [place] # (Auto) (0-900) /uL Eos # (Auto) (0-450) /uL Baso # (Auto) (0-100) /uL Sodium (137-145) mmol/L Potassium (3.4-5.1) mmol/L Chloride (98-107) mmol/L Carbon Dioxide (22-32) mmol/L BUN (9-20) mg/dL Creatinine (0.66-1.25) mg/dL Estimated GFR (>60) mL/min BUN/Creatinine Ratio (6-22) Glucose (80-110) mg/dL Lactate (0.7-2.1) mmol/L Calcium (8.4-10.2) mg/dL Total Bilirubin (0.2-1.3) mg/dL AST (17-59) IU/L ALT (<50) IU/L Alkaline Phosphatase (38-126) U/L Total Protein (6.3-8.2) g/dL Albumin (3.5-5.0) g/dL Globulin (1.7-4.1) g/dL Albumin/Globulin Ratio (1.0-2.8) Lipase (23-300) U/L Procalcitonin (<0.5) ng/mL Urine Color Yellow Urine Appearance Clear Urine pH 5.0 (4.5-8.0) Ur Specific [place] 1.015 (1.000-1.035) Urine Protein 1+ H (Negative) Urine Glucose (UA) Negative (Negative) g/dL Urine Ketones Trace H (NEGATIVE) Urine Occult Blood 3+ H (Negative) Urine Nitrate Negative (Negative) Urine Bilirubin Negative (NEGATIVE) Urine Urobilinogen 0.2 (0.2) E.U./dL Ur Leukocyte Esterase 2+ H (NEGATIVE) Urine RBC 5-10/hpf H (0-5/HPF) Urine WBC 5-10/hpf H (0-5/HPF) Ur Squamous Epith Cells 1-5 /hpf (0-5/HPF) Urine Bacteria None seen (None) Ur Culture Indicated? Specimen cultured Imaging Data Chest x-ray: Radiologist's Impression: [address] [address] XRay Report Signed Patient: Gilmer Lebron MR#: [id number] : 1945 Acct:[id number] Age/Sex: 76 / M Date of Service: 05/08/21 Loc: ED Accession Number: [id number] ?? Procedure: XR chest 1V Ordering Provider: Jamie Montoya D.O. PROCEDURE:? XR CHEST 1V ? INDICATIONS:? suspected sepsis ? TECHNIQUE:? One view of the chest was acquired.? ? COMPARISON:? [facility], CR, XR CHEST 1V, 05/07/2021, 17:10. ? FINDINGS:? ? Surgical changes and devices:? None.? ? Lungs and pleura:? Coarsened interstitial markings.? No consolidation,? pleural effusions or pneumothorax.? Flattened contour of the diaphragms.? ? Mediastinum:? Mediastinal contours appear normal.? Heart size is normal.? ? Bones and chest wall:? No suspicious bony lesions.? Overlying soft tissues appear unremarkable.? ? IMPRESSION:? No acute cardiopulmonary abnormality. ? ? Dictated by: Devonte Heath M.D. on 05/08/2021 at 13:39 ? ? Approved by: Devonte Heath M.D. on 05/08/2021 at 13:40? ECG Data Attestation: I personally reviewed and interpreted this ECG as follows: Interpretation: Sinus rhythm Ventricular rate is 70 to Normal axis Normal QRS Normal QTC No ST T wave changes MDM Narrative Medical decision making narrative: Patient's only complaints today are generalized weakness and urinary frequency. Review of his medical record shows that yesterday he was seen for weakness and was diagnosed with pneumonia urinary tract infection. He has not picked up his Levaquin that was prescribed for him. Overnight he became more weak. Initially reports that he fell however the patient states that he did not fall he does lowered himself to the ground because he was feeling very weak. He did not hit his head. Reports no injuries from the events. Review of his medical record shows that he has had Enterococcus urinary tract infections in the past. His preliminary blood cultures from yesterday do show Enterococcus. Patient was given Zosyn here in the emergency department. That should cover this bacteria species. Patient was not hypotensive so the 30 cc/kilogram of fluids was not administered. Labs repeated from today. Discussed the case with Dr. rodríguez with internal medicine who will admit for further evaluation and treatment. Discussed the need for this with the patient. Expressed understanding and agreement. Discharge Plan Departure Patient Disposition: Admitted As Inpatient Clinical Impression: Urinary tract infection, Bacteremia due to Enterococcus, Weakness Admit Date/Time: 05/08/21 14:38 Admit Provider: Liat Rodríguez
[2021-05-08 14:21] LABS: Add Manual Diff / Slide Review NO; Basophils Absolute Auto 100 /uL (0-100); Basophils Percent Auto 0.6 % (0-2); Eosinophils Absolute Auto 0 /uL (0-450); Eosinophils Percent Auto 0.1 % (2-4); Hematocrit 33.4 % (41-53); Hemoglobin 10.9 g/dL (13.5-17.5); Lymphocytes Absolute Auto 500 /uL (1100-4500); Lymphocytes Percent Auto 3.6 % (25-40); Mean Corpuscular HGB Conc 32.6 % (30-36); Mean Corpuscular Hemoglobin 30.7 PG (26-34); Mean Corpuscular Volume 94.2 fL (80-100); Monocytes Absolute Auto 1100 /uL (0-900); Monocytes Percent Auto 8.3 % (3-14); Neutrophils Absolute Auto 11400 /uL (1500-7000); Neutrophils Percent Auto 87.4 % (50-75); Platelet Count 201 X10^3/uL (150-400); Red Blood Cell Count 3.54 X10^6/uL (4.5-5.9); Red Cell Distribution Width 14.1 % (11.6-14.8)
[2021-05-08 14:23] LABS: Appearance Urine UA CLEAR; Bilirubin Urine UA NEGATIVE (NEGATIVE); Color Urine UA YELLOW; Glucose Urine UA NEGATIVE (Negative); Ketones Urine UA TRACE (NEGATIVE); Leukocyte Esterase Urine UA 2+ (NEGATIVE); Nitrite Urine UA NEGATIVE (Negative); Occult Blood Urine UA 3+ (Negative); Protein Urine UA 1+ (Negative); Specific Gravity Urine UA 1.015 (1.000-1.035); Urobilinogen Urine UA 0.2 E.U./dL (0.2)
[2021-05-08 14:28] LABS: Bacteria Urine None Seen; Culture Indicated Urine Specimen Cultured; RBC Urine 5-10/HPF (0-5/HPF); Squamous Epithelial Cell Urine 1-5 /HPF (0-5/HPF); WBC Urine 5-10/HPF (0-5/HPF)
[2021-05-08] MEDS: SODIUM CHLORIDE 0.9% 1,000 ML 1000 ML IV (14:29)
[2021-05-08] MEDS: PIPERACILLIN/TAZO 4.5 GM in SODIUM CHLORIDE 0.9% 100 ML 200 ML IV (14:29)
[2021-05-08 14:33] LABS: Alanine Aminotransferase 15 IU/L (<50); Albumin 3.8 g/dL (3.5-5.0); Albumin Globulin Ratio 1.4 (1.0-2.8); Alkaline Phosphatase 63 U/L (38-126); Aspartate Aminotransferase 34 IU/L (17-59); BUN Creatinine Ratio 15.8 (6-22); Bilirubin Total 0.6 mg/dL (0.2-1.3); Blood Urea Nitrogen 31 mg/dL (9-20); Carbon Dioxide 24 mmol/L (22-32); Chloride 104 mmol/L (98-107); Estimated Glomerular Filt Rate 33.3 mL/min (>60); Globulin 2.7 g/dL (1.7-4.1); Glucose 120 mg/dL (80-110); HEMOLYSIS < 15 (0-50); Lactate (Lactic Acid) 1.4 mmol/L (0.7-2.1); Lipase 35 U/L (23-300); Potassium 4.1 mmol/L (3.4-5.1); Sodium 137 mmol/L (137-145); Total Protein 6.5 g/dL (6.3-8.2)
[2021-05-08 14:49] LABS: Procalcitonin 0.29 ng/mL (<0.5)
[2021-05-08 15:21] LABS: COVID19 - ADMIT (NP swab/PCR) Negative (Negative)
--- NOTE | 2021-05-08 16:29 | P.HP_ITS ---
History of Present Illness History of Present Illness Date Patient Seen: 05/08/21 Time Patient Seen: 16:29 Chief complaint: Possible sepsis Narrative: the patient is a 76-year-old male with a history of bladder tumor, BPH, chronic kidney disease, type 2 diabetes, history of urinary tract infection, hyperlipidemia, hypertension who was evaluated for urinary tract infection and pneumonia. He presented with a chief complaint of weakness. He was given a prescription for Levaquin. The patient lives on [facility] in by the time he returned home he had not received picked up his prescription for the Levaquin. The emergency department was made aware that his blood cultures were positive for Enterococcus. They called to check on the patient and was notified that he was on the floor due to weakness. The patient states that he did not fall. He just slid to the floor and was unable to get up. He denies any fever chills or shortness of breath. He was instructed to return to the emergency room. Patient was airlifted to the emergency department for further evaluation. Patient was diagnosed with bladder cancer in July of this year. He underwent chemotherapy for that. He does report a 50 lb weight loss between July and October of this year. Otherwise he feels that his weight is stable. He typically is able to ambulate. For the past 2 days he has been significantly weaker such that once he is down on the ground he is unable to lift himself back up. He denies any dysuria hematuria or pyuria. He denies fever chills. He denies any cough or shortness of breath. The patient was vaccinated for COVID- 19. Patient had a chest x-ray in the emergency room which was negative. He is admitted to the hospital for inpatient treatment of Enterococcus. Of note the patient has had previous bacterial infections due to Enterococcus. Sensiti vities are available and he will be initiated on Zosyn as this was previously found to be appropriate per sensitivities. Patient History Medical History Age-related nuclear cataract Atrial enlargement, bilateral Bladder cancer (07/22/19) Bladder tumor BPH (benign prostatic hyperplasia) BPH w urinary obs/LUTS CKD (chronic kidney disease) Class 1 obesity (09/18/15) Diabetes Easy bruisability Former smoker History of chemotherapy History of primary bladder cancer History of UTI HLD (hyperlipidemia) HTN (hypertension) Presence of intraocular lens Recurrent malignant neoplasm of bladder Right inguinal hernia Surgical History H/O tooth extraction H/O vasectomy History of colonoscopy Hx of bilateral cataract extraction Hx of cystoscopy (07/26/19) Hx of cystoscopy (10/27/19) Hx of cystoscopy (11/18/19) Hx of cystoscopy (05/03/20) Hx of cystoscopy (05/14/20) Hx of transurethral destruction of bladder lesion (08/05/19) Family & Social History Family History (Updated 05/08/21 @ 16:33 by Liat Rodríguez MD) Mother No problems noted. Other Diabetes mellitus Social History: household members spouse Prior Living Arrangements House Safety & Behavioral: Feels Safe in Current Yes Environment Been Physically Hurt or No Threatened By a Person Suicidal Ideation Description None Suicide Plan Description No Plan Tobacco & Substance use: Tobacco type cigarettes Smoking Status Former smoker alcohol intake former Substance Use Type does not use Meds Home Medications and Allergies Home Medications Medication Instructions Recorded Confirmed Type metformin 1,000 mg tablet 1,000 mg PO BIDCC #180 tab 10/14/16 02/20/21 Rx atorvastatin 10 mg tablet 10 mg PO BEDTIME 08/05/19 02/20/21 History fish, borage, flaxseed oils-omega 1 cap PO BID 08/05/19 02/20/21 History 3,6,9 comb no.1 1,200 mg capsule ([place] 3-6-9) lisinopril 2.5 mg tablet 2.5 mg PO DAILY 08/05/19 02/20/21 History loratadine 10 mg tablet 10 mg PO DAILY PRN 11/04/19 02/20/21 History (Allerclear) tamsulosin 0.4 mg capsule 0.4 mg PO BID #180 cap 12/06/20 02/20/21 Rx ascorbic acid (vitamin C) 1,000 mg 1,000 mg PO DAILY 12/07/20 02/20/21 History tablet (Vitamin C) cyanocobalamin-liver extract tablet 1 tab PO DAILY 12/07/20 02/20/21 History melatonin 10 mg tablet 10 mg PO BEDTIME PRN 12/07/20 02/20/21 History finasteride 5 mg tablet 5 mg PO DAILY #90 tab 02/21/21 Rx cholecalciferol (vitamin D3) PO 03/19/21 03/19/21 History levofloxacin 750 mg tablet 750 mg PO DAILY 5 Days #5 tab 05/07/21 Rx Allergies Allergy/AdvReac Type Severity Reaction Status Date / Time ralph Allergy Unknown Verified 03/19/21 13:13 cetirizine Allergy Unknown Verified 03/19/21 13:13 Review of Systems Review of Systems Narrative: review of systems is negative except as above Exam Vital Signs (past 8 hours): - 05/08/21 13:14 05/08/21 13:24 05/08/21 13:30 Temperature 100.5 F H Pulse Rate 83 73 71 Respiratory Rate 16 22 16 Blood Pressure 169/73 H 169/73 H 153/69 H Pulse Oximetry 94 98 98 05/08/21 14:00 05/08/21 14:30 Temperature Pulse Rate 63 63 Respiratory Rate 16 17 Blood Pressure 137/62 133/61 Pulse Oximetry 97 97 Oxygen Delivery Method Room Air Narrative Exam Narrative: pleasant elderly male in no obvious distress [facility] Other: HEENT: Normocephalic atraumatic, extraocular muscles are intact, oropharynx is clear, neck is supple without adenopathy Resp Other: lungs: Decreased breath sounds but clear to auscultation Cardio Other: cardiac exam: Regular rate rhythm normal S1-S2 with a 3/6 systolic ejection murmur GI Other: abdomen: Soft and nontender, right upper quadrant palpable liver edge noted Skin Other: multiple bruising on the hands which appear to be chronic Neuro Other: neuro exam is nonfocal Extrem Other: no lower extremity edema Objective Labs Result Diagrams: 05/08/21 14:10 05/08/21 14:10 Labs: Laboratory Results - last 24 hr 05/08/21 05/08/21 05/08/21 14:10 14:10 14:10 WBC 13.0 H RBC 3.54 L Hgb 10.9 L Hct 33.4 L MCV 94.2 MCH 30.7 MCHC 32.6 RDW 14.1 Plt Count 201 Neut % (Auto) 87.4 H Lymph % (Auto) 3.6 L [place] % (Auto) 8.3 Eos % (Auto) 0.1 L Baso % (Auto) 0.6 Neut # (Auto) 43614 H Lymph # (Auto) 500 L [place] # (Auto) 1100 H Eos # (Auto) 0 Baso # (Auto) 100 Sodium 137 Potassium 4.1 Chloride 104 Carbon Dioxide 24 BUN 31 H Creatinine 1.96 H Estimated GFR 33.3 L BUN/Creatinine Ratio 15.8 Glucose 120 H Lactate 1.4 Calcium 9.0 Total Bilirubin 0.6 AST 34 ALT 15 Alkaline Phosphatase 63 Total Protein 6.5 Albumin 3.8 Globulin 2.7 Albumin/Globulin Ratio 1.4 Lipase 35 Procalcitonin 0.29 Urine Color Urine Appearance Urine pH Ur Specific [place] Urine Protein Urine Glucose (UA) Urine Ketones Urine Occult Blood Urine Nitrate Urine Bilirubin Urine Urobilinogen Ur Leukocyte Esterase Urine RBC Urine WBC Ur Squamous Epith Cells Urine Bacteria Ur Culture Indicated? SARS-CoV-2 (PCR) 05/08/21 05/08/21 14:10 14:13 WBC RBC Hgb Hct MCV MCH MCHC RDW Plt Count Neut % (Auto) Lymph % (Auto) [place] % (Auto) Eos % (Auto) Baso % (Auto) Neut # (Auto) Lymph # (Auto) [place] # (Auto) Eos # (Auto) Baso # (Auto) Sodium Potassium Chloride Carbon Dioxide BUN Creatinine Estimated GFR BUN/Creatinine Ratio Glucose Lactate Calcium Total Bilirubin AST ALT Alkaline Phosphatase Total Protein Albumin Globulin Albumin/Globulin Ratio Lipase Procalcitonin Urine Color Yellow Urine Appearance Clear Urine pH 5.0 Ur Specific [place] 1.015 Urine Protein 1+ H Urine Glucose (UA) Negative Urine Ketones Trace H Urine Occult Blood 3+ H Urine Nitrate Negative Urine Bilirubin Negative Urine Urobilinogen 0.2 Ur Leukocyte Esterase 2+ H Urine RBC 5-10/hpf H Urine WBC 5-10/hpf H Ur Squamous Epith Cells 1-5 /hpf Urine Bacteria None seen Ur Culture Indicated? Specimen cultured SARS-CoV-2 (PCR) Negative Assessment & Plan Assessment & Plan narrative: impression 1. 76-year-old male admitted to the hospital for enterococcal bacteremia - [place] [id number] - he has a history of a bladder cancer diagnosed in June of 2019 as well as BPH, as well as BPH with urinary obstruction - he has had previous urinary tract infections due to her Enterococcus, urine cultures are sent at this time, he has 3+ blood, 5-10 white cells - lactate 1.4, procalcitonin 0.29 - suspect Enterococcus bacteremia is resulting from his urine however given his murmur on exam will obtain cardiac echo for completeness - will continue Zosyn at this time until culture and sensitivities have returned - repeat chest x-ray reveals no evidence of pneumonia today 2. chronic kidney disease stage 3 - creatinine 1.96 which is about baseline - patient with known BPH and urinary obstruction - will avoid nephrotoxic agent - will follow electrolytes closely 3. type 2 diabetes - patient previously on metformin - will hold at this time but start sliding scale insulin 4. recent diagnosis of pneumonia - patient is currently not hypoxic - white count elevated at 13, procalcitonin 0.29 - Zosyn will cover 5. hypertension - continue lisinopril 6. hyperlipidemia - continue atorvastatin 7. frequent urinary tract infection - urine culture pending - continue Zosyn for Enterococcus 8. history of urinary retention - continue tamsulosin and finasteride 9. generalized weakness - likely multifactorial - will order PT OT patient will be placed on DVT prophylaxis patient reports his is his surrogate decision maker. He expresses a desire to be full code. I have utilized all available resources to review update and confirm current medication list Time Spent With Patient Critical Care time: I spent a total of [] minutes of critical care time on this patient's care today; this time is exclusive of procedural time.
--- NOTE | 2021-05-08 16:41 | DI.ECHO.S_ITS ---
[facility] +---------+ : : [address] : : : : [id number] : : : : Phone: [phone]---------+ Echocardiogram Report + + :Name: CASSY DUNCAN Study Date: 05/09/2021 Height: 62 in : :[facility] ReadingLocation: Weight: 185 lb: : Gender: Male BSA: 1.8 m2 : :: 1945 Age: 76 yrs : :Reason For Study: Possible sepsis, bacteremia : : Performed By: SAMIR TILLMAN : :Referring: CECIL DELGADO : + + Interpretation Summary The ejection fraction is estimated to be 55-60%. There are no obvious focal wall motion abnormalities noted but poor endocardial definition reduces the sensitivity for the detection of such. The right ventricle is mild to moderately dilated. The right atrium is severely dilated. The aortic valve is mildly calcified. There is mildly reduced leaflet mobility. There is trace aortic regurgitation. There is trace tricuspid regurgitation. Consider JAY if endocarditis is suspected. Procedure: A two-dimensional transthoracic echocardiogram with color flow and Doppler was performed. Comparison is made with the echocardiogram of 02/22/2019. Fair image quality. The patient was in normal sinus rhythm during the exam. Left Ventricle: The left ventricle is normal in size. There is borderline asymmetric left ventricular hypertrophy. The ejection fraction is estimated to be 55-60%. There are no obvious focal wall motion abnormalities noted but poor endocardial definition reduces the sensitivity for the detection of such. Right Ventricle: The right ventricle is mild to moderately dilated. The right ventricular systolic function is normal. Atria: The left atrium is mildly dilated. The right atrium is severely dilated. There is no Doppler evidence for an interatrial shunt. The thickening of interatrial septum suggests lipomatous hypertrophy. Mitral Valve: The mitral valve is normal. There is trace mitral regurgitation. Aortic Valve: The aortic valve is trileaflet. There is mildly reduced leaflet mobility. The aortic valve is mildly calcified. There is trace aortic regurgitation. Tricuspid Valve: The tricuspid valve is normal. There is trace tricuspid regurgitation. Pulmonary artery pressures cannot be estimated because of the lack of a measurable TR jet velocity but the IVC suggests a CVP of around 8 mmHg. Pulmonic Valve: The pulmonic valve leaflets are thin and pliable; valve motion is normal. There is a trace or physiologic amount of pulmonic regurgitation. Great Vessels: The aortic root is normal size. The ascending aorta is normal in size. The aortic arch is normal in size. The IVC is dilated (diameter is greater than 2.1 cm) yet it collapses greater than 50% with a sniff. This suggests a right atrial pressure of 8 mm Hg. Pericardium/ Pleura There is no pericardial effusion. There is an anterior echo-free space consistent with a fat pad. There is no pleural effusion. MMode/2D Measurements & Calculations LVIDd: 5.2 cm LVOT diam: 2.1 cm LVIDs: 3.7 cm Ao root diam: 3.5 cm FS: 28.4 % asc Aorta Diam: 3.6 cm IVSd: 1.2 cm Ao Arch Diam (Prox Trans): 3.1 cm LVPWd: 1.3 cm LV robin. diameter/BSA (cm/m^2): 2.8 LV sys. diameter/BSA (cm/m^2): 2.0 LA A2 area: 17.9 cm2 RA long axis: 5.8 cm LA A4 area: 24.7 cm2 RA area: 25.7 cm2 LA length (vol): 5.4 cm RA vol: 96.0 ml LA vol: 69.8 ml RA : 51.9 ml/m2 LA vol index: 37.8 ml/m2 IVC diam: 2.6 cm RVD1 (basal): 5.5 cm TAPSE: 2.4 cm Doppler Measurements & Calculations Ao V2 max: 248.6 cm/sec LVOT Max Samuel: 105.5 cm/sec Ao V2 mean: 161.8 cm/sec LV V1 max P.5 mmHg Ao max P.7 mmHg LV V1 VTI: 24.2 cm Ao mean P.7 mmHg GIOVANNA(I,D): 1.4 cm2 Ao V2 VTI: 59.2 cm GIOVANNA(V,D): 1.5 cm2 sev ratio: 0.41 GIOVANNA indexed to BSA (cm^2/m^2): 0.77 MV E max samuel: 95.9 cm/sec PA V2 max: 86.4 cm/sec MV A max samuel: 81.4 cm/sec PA V2 mean: 66.3 cm/sec MV E/A: 1.2 PA mean P.9 mmHg Med Peak E' Samuel: 10.0 cm/sec PA pr(Accel): -4.9 mmHg E/E' med: 9.6 Lat Peak E' Samuel: 12.0 cm/sec E/E' lat: 8.0 E/e' average: 8.8 MV dec time: 0.22 sec SV(LVOT): 84.8 ml Reading Physician:11:23 AM
--- NOTE | 2021-05-08 17:03 | PC.NURSE ---
ED admit-pt arrived from Ed via stretcher, 3 person assist from stretcher to ac bed via slider board. Patient awake, alert calm and cooperative.
[2021-05-08 18:46] LABS: Add Manual Diff / Slide Review NO; Basophils Absolute Auto 100 /uL (0-100); Basophils Percent Auto 0.7 % (0-2); Eosinophils Absolute Auto 0 /uL (0-450); Eosinophils Percent Auto 0.2 % (2-4); Hematocrit 33.2 % (41-53); Hemoglobin 10.8 g/dL (13.5-17.5); Lymphocytes Absolute Auto 800 /uL (1100-4500); Lymphocytes Percent Auto 6.5 % (25-40); Mean Corpuscular HGB Conc 32.5 % (30-36); Mean Corpuscular Hemoglobin 30.6 PG (26-34); Mean Corpuscular Volume 94.1 fL (80-100); Monocytes Absolute Auto 1000 /uL (0-900); Neutrophils Absolute Auto 10600 /uL (1500-7000); Neutrophils Percent Auto 84.6 % (50-75); Platelet Count 210 X10^3/uL (150-400); Red Blood Cell Count 3.53 X10^6/uL (4.5-5.9); White Blood Cell Count 12.5 X10^3/uL (4.5-11.0)
[2021-05-08 19:19] LABS: BUN Creatinine Ratio 14.5 (6-22); Blood Urea Nitrogen 30 mg/dL (9-20); Calcium 8.8 mg/dL (8.4-10.2); Carbon Dioxide 27 mmol/L (22-32); Chloride 102 mmol/L (98-107); Estimated Glomerular Filt Rate 31.3 mL/min (>60); Glucose 176 mg/dL (80-110); HEMOLYSIS < 15 (0-50); Sodium 138 mmol/L (137-145)
[2021-05-08] MEDS: PIPERACILLIN/TAZO 3.375 GM in SODIUM CHLORIDE 0.9% 100 ML 25 ML IV (19:25)
[2021-05-08] MEDS: ACETAMINOPHEN 325 MG TABLET 650 MG PO (21:07)
[2021-05-08] MEDS: ATORVASTATIN 20 MG TABLET 10 MG PO (21:07)
[2021-05-08] MEDS: TAMSULOSIN 0.4 MG CAPSULE PO (21:09)
[2021-05-09] VITALS (14 sets, daily range): BP systolic 120–132; BP diastolic 52–71; PULSE 49–98; RESP 14–20; TEMP 36.3–37.8; O2SAT 95–99
[2021-05-09] MEDS: PIPERACILLIN/TAZO 3.375 GM in SODIUM CHLORIDE 0.9% 100 ML 25 ML IV ×2 (02:49→11:28)
[2021-05-09] MEDS: ACETAMINOPHEN 325 MG TABLET 650 MG PO (03:11)
--- NOTE | 2021-05-09 04:15 | PC.NURSE ---
ICU notified this RN at 0405 of 11 beat VTACH run. Pt asleep at time of assessment but denied any cardiac symptoms. Vital signs stable. Mild tachypnea during sleep but evens out on awakening. Provider informed of cardiac issue. Provider requested labs be drawn early and a mag draw be added on to morning labs. Laboratory contacted and informed of change. Provider informed of current urine retention- pt able to void but retains approx 300-400 mL urine post-void residual scan. Presents w/ frequent urination & difficulty urinating. No orders rec'd at this time.
[2021-05-09 04:39] LABS: Add Manual Diff / Slide Review NO; Basophils Absolute Auto 100 /uL (0-100); Basophils Percent Auto 1.1 % (0-2); Eosinophils Absolute Auto 100 /uL (0-450); Eosinophils Percent Auto 0.5 % (2-4); Hematocrit 31.5 % (41-53); Lymphocytes Absolute Auto 700 /uL (1100-4500); Lymphocytes Percent Auto 5.2 % (25-40); Mean Corpuscular HGB Conc 31.9 % (30-36); Mean Corpuscular Hemoglobin 30.2 PG (26-34); Mean Corpuscular Volume 94.9 fL (80-100); Monocytes Absolute Auto 1400 /uL (0-900); Monocytes Percent Auto 10.7 % (3-14); Neutrophils Absolute Auto 11100 /uL (1500-7000); Neutrophils Percent Auto 82.5 % (50-75); Platelet Count 183 X10^3/uL (150-400); Red Blood Cell Count 3.32 X10^6/uL (4.5-5.9); Red Cell Distribution Width 13.7 % (11.6-14.8); White Blood Cell Count 13.4 X10^3/uL (4.5-11.0)
[2021-05-09 04:48] LABS: Alanine Aminotransferase 15 IU/L (<50); Albumin 3.2 g/dL (3.5-5.0); Albumin Globulin Ratio 1.2 (1.0-2.8); Alkaline Phosphatase 52 U/L (38-126); Aspartate Aminotransferase 34 IU/L (17-59); BUN Creatinine Ratio 15.2 (6-22); Bilirubin Total 0.5 mg/dL (0.2-1.3); Blood Urea Nitrogen 32 mg/dL (9-20); Calcium 8.3 mg/dL (8.4-10.2); Carbon Dioxide 25 mmol/L (22-32); Chloride 104 mmol/L (98-107); Estimated Glomerular Filt Rate 30.6 mL/min (>60); Globulin 2.7 g/dL (1.7-4.1); Glucose 121 mg/dL (80-110); HEMOLYSIS < 15 (0-50); Potassium 3.8 mmol/L (3.4-5.1); Sodium 137 mmol/L (137-145); Total Protein 5.9 g/dL (6.3-8.2)
[2021-05-09 04:56] LABS: NT-proBNP (BNP-Adult 18+) 2980 pg/mL (<450)
[2021-05-09 05:15] LABS: Magnesium 1.6 mg/dL (1.6-2.3)
[2021-05-09] MEDS: VANCOMYCIN 1,000 MG/200 ML PIGGYBACK 200 MG IV (08:08)
[2021-05-09] MEDS: MAGNESIUM SULFATE 2 GM/50 ML PIGGYBACK IV (08:08)
[2021-05-09] MEDS: ASCORBIC ACID 500 MG TABLET 1000 MG PO (09:01)
[2021-05-09] MEDS: ENOXAPARIN 30 MG/0.3 ML SYRINGE SUBCUT (09:02)
[2021-05-09] MEDS: FINASTERIDE 5 MG TABLET PO (09:02)
[2021-05-09] MEDS: lisinopriL 5 MG TABLET 2.5 MG PO (09:02)
[2021-05-09] MEDS: TAMSULOSIN 0.4 MG CAPSULE PO ×2 (09:02→20:47)
--- NOTE | 2021-05-09 11:35 | PT.IIE ---
Medical History (Last Reviewed 05/08/21 @ 16:32 by Liat Rodríguez MD) Age-related nuclear cataract Atrial enlargement, bilateral Bladder cancer (07/22/19) Bladder tumor BPH (benign prostatic hyperplasia) BPH w urinary obs/LUTS CKD (chronic kidney disease) Class 1 obesity (09/18/15) Diabetes Easy bruisability Former smoker History of chemotherapy History of primary bladder cancer History of UTI HLD (hyperlipidemia) HTN (hypertension) Presence of intraocular lens Recurrent malignant neoplasm of bladder Right inguinal hernia Physical Therapy Inpatient Evaluation/Re-Eval M1 PT/OT-IP Prior Functional Status Start: 05/09/21 12:44 Freq: NEEDED Status: Active Protocol: Document 05/09/21 11:35 AB (Rec: 05/09/21 12:57 AB [id number]) Medical Review Prior Functional Status Medical History Reviewed Yes Communication able to make needs known Mobility and Gait pt stated that he is independent with all mobilities and ambulation without AD Social History Household Members spouse Living Arrangements House Number of Floors (Floors) Two Floors Number of Stairs To Enter/Railing? pt stays on main level of the house has 6 steps to enter with bilateral wide rails and can only use 1 rail at a time Home Environment High Toilet,Walk in Shower Home Equipment Four Wheel Walker,Straight Cane,Hand Held Shower,Grab Bars Near Toilet M2 PT-IP Current Condition Start: 05/09/21 12:44 Freq: NEEDED Status: Active Protocol: Document 05/09/21 11:35 AB (Rec: 05/09/21 12:57 AB [id number]) Physical Therapy Current Condition Current Condition Evaluation Date 05/09/21 Treatment Diagnosis UTI; PNA; difficulty in walking Onset Date 05/08/21 M3 PT-IP Subjective Start: 05/09/21 12:44 Freq: NEEDED Status: Active Protocol: Document 05/09/21 11:35 AB (Rec: 05/09/21 12:57 AB [id number]) Subjective Physical Therapy Visit Type Type Initial Evaluation Visit Start Time 11:35 Visit Stop Time 12:05 Total Visit Minutes 30 Number of BOX TOE STITCHER Visits 0 Physical Therapy Visit Comments Patient Comments agreeable to do PT M4 PT-IP Mobility and Gait Start: 05/09/21 12:44 Freq: NEEDED Status: Active Protocol: Document 05/09/21 11:35 AB (Rec: 05/09/21 12:57 AB [email or web address]) PT-Bed Mobility Assessment Sit to Supine Sit to Supine Standby Assistance PT-Transfer Assessment Sit to and From Stand Sit to and from Stand Contact Guard Assistance,Total Assistance Equipment Transfer Assistive Device Gait Belt,Front Wheeled Walker Orthotic/Prosthetic Devices or Brace: No Transfers Transfer Destination Bed,Chair Transfer Technique ambulated using FWW Transfer Ability Level of Assist Standby Assistance,Contact Guard Assistance Comments Mobility Comments pt sitting on chair. spouse in room. pt agreeable to do PT. completed sit to stand CGA and ambulated to the bed ~ 12 ft using fWW CGA. pt can be impulsive. completed sit<> supine SBA. pt agreed to ambulate farther and completed 100 ft using FWW SBA to CGA. assessed ambulation without AD and completed ~ 20 ft CGA. presents with unsteady antalgic gait and slight LOB to the R with increase time to recenter body but was able to cover. pt agreed to stay up on the chair. call light and table placed within reach. Left pt with spouse in room. Gait Assessment Gait Gait Assistance Required: Standby Assistance,Contact Guard Assist Distance (Feet) 100 Able to Maintain Weight Bearing Status Yes During Gait Assistive Devices Assistive Device None,Gait Belt,Front Wheeled Walker Orthotic/Prosthetic Devices or Brace: No Gait Deviations General Gait Pattern Antalgic,Decreased Feet Clearance,Flexed Trunk,Lateral Trunk Lean Factors Limiting Gait Function Factors Limiting Gait Function Decreased Activity Tolerance, Decreased Strength,Poor Balance,Poor Safety Awareness Comments Gait Comments has a forward head, increase thoraci kyphosis and lateral upper trunk lean to the R during standing. PT-Balance Assessment Sitting Balance and Reactions Static Sitting Balance Ability Good Dynamic Sitting Balance Ability Good Standing Balance and Reactions Static Standing Balance Ability Fair Dynamic Standing Balance Ability Fair Device Used FWW M5 PT-IP Objective Assessments Start: 05/09/21 12:44 Freq: NEEDED Status: Active Protocol: Document 05/09/21 11:35 AB (Rec: 05/09/21 12:57 AB [id number]) Orientation Orientation/Cognition Level of Alertness Alert Orientation Name,Place,Situation Safety Awareness Decreased Safety Awareness Gross Range of Motion Lower Extremity ROM Assessment Within Functional Limits Strength Lower Extremity Strength Assessment Within Functional Limits Sensation Assessment Sensation Gross Sensation WNL Muscle Tone Muscle Tone WNL Yes M6 PT-IP Treatment Start: 05/09/21 12:44 Freq: NEEDED Status: Active Protocol: Document 05/09/21 11:35 AB (Rec: 05/09/21 12:57 AB [id number]) Physical Therapy Treatment Education Education Provided Safety M7 PT-IP Assessment and Plan Start: 05/09/21 12:44 Freq: NEEDED Status: Active Protocol: Document 05/09/21 11:35 AB (Rec: 05/09/21 12:57 AB [id number]) PT Summary Assessment and Plan Potential Rehabilitation Potential Good Status of Condition at Evaluation Stable Summary Impairments Pain,ROM,Strength,Balance, Cognition,Bed Mobility, Transfers,Gait,Activity Tolerance Assessment Summary pt requring SBA to CGA with mobility using FWW. pt can be impulsive. will continue to assess progress and conduct caregiver training when appropriate. stair climbing training also needs to be completed prior to d/c home. pt has a 4WW at home but was not using any AD prior to hospitalization. will assess safety with 4WW on next tx session and continue to work on improving balance and ambulation withotu AD. pt will benefit from outpt PT upon d/c. Goals Bed Mobility Goal Independent Transfer Goal Independent,Four Wheeled Walker Gait Goal Independent,Four Wheel Walker Gait Distance 200 Other Goals improve ambulation without AD 250 ft SBA up/down 6 steps 1 rail mod I Days to Meet Goals 5 Frequency of Treatment Frequency Of Treatment Once a Day Treatment Plan Physical Therapy Treatment Plan Bed Mobility Training,Transfer Training,Gait Training, Therapeutic Exercise,Balance Retraining,Post Op Education, Discharge Planning,Hot or Cold Pack,Neuromuscular Re-ed, Coordination Retraining,Manual Therapy Other Recommendations and Next Treatment ambulation using 4WW Focus Precautions Other Precautions falls Recommendations To Nursing Amount of Assist Needed 1 Person Assist Discharge Recommendations PT Discharge Recommendations Home with Assistance, Outpatient PT Transportation Needs at Discharge Private Vehicle
[2021-05-09] MEDS: levoFLOXacin 750 MG/150 ML PIGGYBACK 100 MG IV (12:10)
--- NOTE | 2021-05-09 13:37 | OT.IP.EVAL ---
Past Medical History (Last Reviewed 05/08/21 @ 16:32 by Liat Rodríguez MD) Age-related nuclear cataract Atrial enlargement, bilateral Bladder cancer (07/22/19) Bladder tumor BPH (benign prostatic hyperplasia) BPH w urinary obs/LUTS CKD (chronic kidney disease) Class 1 obesity (09/18/15) Diabetes Easy bruisability Former smoker H/O tooth extraction H/O vasectomy History of chemotherapy History of colonoscopy History of primary bladder cancer History of UTI HLD (hyperlipidemia) HTN (hypertension) Hx of bilateral cataract extraction Hx of cystoscopy (07/26/19) Hx of cystoscopy (10/27/19) Hx of cystoscopy (11/18/19) Hx of cystoscopy (05/03/20) Hx of cystoscopy (05/14/20) Hx of transurethral destruction of bladder lesion (08/05/19) Presence of intraocular lens Recurrent malignant neoplasm of bladder Right inguinal hernia Surgical History (Last Reviewed 05/08/21 @ 16:32 by Liat Rodríguez MD) H/O tooth extraction H/O vasectomy History of colonoscopy Hx of bilateral cataract extraction Hx of cystoscopy (07/26/19) Hx of cystoscopy (10/27/19) Hx of cystoscopy (11/18/19) Hx of cystoscopy (05/03/20) Hx of cystoscopy (05/14/20) Hx of transurethral destruction of bladder lesion (08/05/19) Occupational Therapy Inpatient Evaluation/Re-Eval M1 PT/OT-IP Prior Functional Status Start: 05/09/21 12:44 Freq: NEEDED Status: Active Protocol: Document 05/09/21 12:49 [facility] (Rec: 05/09/21 14:49 [facility] [id number]) Medical Review Prior Functional Status Medical History Reviewed Yes Communication able to make needs known Mobility and Gait pt stated that he is independent with all mobilities and ambulation without AD Activities of Daily Living and IADL's Completely independent with all his ADl ,IADl and was on the ladder as few days ago and able to walk the dog. Social History Household Members spouse Living Arrangements House Number of Floors (Floors) Two Floors Number of Stairs To Enter/Railing? pt stays on main level of the house has 6 steps to enter with bilateral wide rails and can only use 1 rail at a time Home Environment High Toilet,Walk in Shower Home Equipment Four Wheel Walker,Straight Cane,Hand Held Shower,Grab Bars Near Toilet M2 OT-IP Current Condition Start: 05/09/21 14:37 Freq: Status: Active Protocol: Document 05/09/21 12:49 [facility] (Rec: 05/09/21 14:49 [facility] [id number]) Occupational Therapy Current Condition Current Condition Evaluation Date 05/09/21 Treatment Diagnosis UTI, weakness Diagnosis Onset Date 05/08/21 M3 OT- IP Subjective and Pain Start: 05/09/21 14:37 Freq: Status: Active Protocol: Document 05/09/21 12:49 [facility] (Rec: 05/09/21 14:49 [facility] [id number]) OT- Subjective Occupational Therapy Visit Type Type Initial Evaluation Visit Start Time 12:49 Visit Stop Time 13:37 Total Visit Minutes 48 Occupational Therapy Visit Comments Patient Comments Pt agreed to do OT eval and pt 's present in the room. Patient/Caregiver Goals To go home. OT Pain Assessment Pain When Pain Assessed At Rest Pain Present Pain Present Denied Pain M4 OT- IP ADL's Start: 05/09/21 14:37 Freq: Status: Active Protocol: Document 05/09/21 12:49 [facility] (Rec: 05/09/21 14:49 [facility] [id number]) OT [id number] General Evaluation Self-Feeding Ability Independent OT ADL-Grooming General Evaluation Grooming Ability Independent Comments OT Grooming Comments Able to stand at the sink for grooming needs with FWW. OT ADL-Oral Care General Eval Oral Care Ability Independent OT ADL-Dressing General Eval Lower Body Dressing Ability Standby Assistance Comments OT Dressing Comments Pt able to aubree/doff his socks while seated. Pt states prior able to stand to aubree/ doff his pants and at time leans on the dresser for balance. OT ADL-Toileting General Evaluation Toileting Ability Standby Assistance OT ADL-Bathing Comments OT Bathing Comments Pt too tired to attempt at this time. Suggested may be best to have a shower chair to use for home. M5 OT- IP IADL's Start: 05/09/21 14:37 Freq: Status: Active Protocol: Document 05/09/21 12:49 [facility] (Rec: 05/09/21 14:49 [facility] [id number]) OT-Instrumental Activities of Daily Living Home Safety Awareness Home Safety Comments Pt very tired and to continue to assess for his safety needs . M6 OT- IP Functional Cognition Start: 05/09/21 14:37 Freq: Status: Active Protocol: Document 05/09/21 12:49 [facility] (Rec: 05/09/21 14:49 [facility] [id number]) Cognitive Factors Limiting Selfcare Function Cognitive Ability Level of Alertness Alert Patient Orientation Name,Place,Situation Attention Span Ability Capable of Focused Attention, Capable of Sustained Attention Ability to Follow Commands Able to Follow Multi-Step Commands Cognitive Comments Cognitive Assessment Comments Pt able to follow directions for needs of ADl and mobility . M7 OT- IP Mobility and Balance Start: 05/09/21 14:37 Freq: Status: Active Protocol: Document 05/09/21 12:49 [facility] (Rec: 05/09/21 14:49 [facility] [id number]) OT- Bed Mobility Assessment Sit to Supine Sit to Supine Assist Standby Assistance OT-Transfer Assessment Sit to and From Stand Sit to and from Stand Standby Assistance,Contact Guard Assistance Transfers Transfer Ability Standby Assistance,Contact Guard Assistance,Minimal Assistance Technique Transfer Destination Bed,Chair,Toilet Transfer Technique Stand Step Pivot Devices Transfer Assistive Devices None,Gait Belt,Front Wheeled Walker Comments Mobility Comments Pt RAY/CGA to transfer without device and SBA with FWW. Able to show pt 4ww but too tired to try today. OT- Gait Assessment Comments Gait Ability Comments CGA/SBA with FWW OT- Balance Assessment Sitting Balance and Reactions Static Sitting Balance Ability Good Dynamic Sitting Balance Ability Good Standing Balance and Reactions Static Standing Balance Ability Fair Dynamic Standing Balance Ability Fair M8 OT- IP Objective Assessments Start: 05/09/21 14:37 Freq: Status: Active Protocol: Document 05/09/21 12:49 [facility] (Rec: 05/09/21 14:49 [facility] [id number]) OT Gross Range of Motion Upper Extremity Range of Motion Assessment Right Impaired ROM Impairments RUE shoulder abduction 0-100, LUE 0-120 OT Strength Comments Strength Comments BUE from proximal to distal 4- /5 to 4+/5. M9 OT- IP Assessment and Plan Start: 05/09/21 14:37 Freq: Status: Active Protocol: Document 05/09/21 12:49 [facility] (Rec: 05/09/21 14:49 [facility] [id number]) OT Summary Assessment and Plan Potential Rehabilitation Potential Good Analytic Complexity at Evaluation Moderate Summary OT Impairments Strength,Balance,Functional Mobility,Grooming,Dressing, Bathing,Toilet Transfers, Shower Transfers,Activity Tolerance Progress Towards Goals Progressing Toward Goals Assessment Summary Pt MOD complexity and here due to UTI and weakness and main barriers are steps , decreased balance and activity tolerance. Pt has a supportive to assist for his needs at home. Pt to go home when medically stable and continue do outpt PT. Goals Grooming Goal Independent Dressing Goal Independent Toileting Goal Independent Bathing Goal Independent Toilet Transfer Goal Independent Shower Transfer Goal Independent Days to Meet Goals 7 Frequency of Treatment Frequency Of Treatment Once a Day Treatment Plan OT Treatment Plan ADL Training,Functional Mobility,Patient/Family Education,Discharge Planning Other Treatment Recommendations and Next shower Treatment Focus Discharge Recommendations OT Discharge Recommendations Home with Assistance Home Equipment Needs Shower chair, Fww versus 4WW Transportation Needs at Discharge Private Vehicle
--- NOTE | 2021-05-09 14:25 | CM.IDA ---
Initial DCP Assessment Note Pt is a 76 yo male, resident of [facility], presents via EMS for evaluation of weakness, inability to get off the floor; work up showed both pneumonia and UTI; enterococcal bacteremia Patient expected to remain admitted for continued IV abx, hospitalist hopeful to DC on po meds. PCP: Jamie Escobedo Payer: STEPHANIE/Rosita Reviewed chart, pt discussed in multidisciplinary rounds this morning. Therapy has cleared pt for return home w/family to assist and outpatient PT. Patient/spouse confident about patient's return home, deny needs from DCP team at this time. No needs expected from DC planning team although will remain available in case this changes before patient's DC [place] Discharge Planning/Care Management CM Discharge Assessment Start: 05/09/21 14:21 Freq: Status: Active Protocol: Document 05/09/21 14:21 TOM (Rec: 05/09/21 14:25 [facility] [id number]) Discharge Planning Assessment Assigned Derrick Helper [place]os DPOA/Assigned Designee Name Mely Lebron, spouse Contact Information [phone] Advance Directives? Yes Advance Directives on File No History Provided By Patient Prior Living Arrangements House Household Members spouse Type of transporation used prior to Drives own vehicle admit Independent with ADL's Yes Is patient alert and oriented? Yes Patient/Family Preference OP PT Therapy Barriers to Discharge No Comment Home w/spouse and outpatient PT Discharge Plan Home Transportation Arrangement Family Referrals Initiated None needed Additional Comment At this time
--- NOTE | 2021-05-09 15:57 | P.PN_ITS ---
Subjective Subjective Date Patient Seen: 05/09/21 Time Patient Seen: 15:57 Interval history: 76 M admitted with enterococcus bacteremia. Feels stronger today but still quite weak. Did okay with PT. borderline febrile with Tmax at 100 F overnight. Narrowed to levaquin based on urine E. faecalis. BLood cultures pending speciation from 05/07. repeat cultures yesterday negative. Exam Vital Signs (past 8 hours): - 05/09/21 09:02 05/09/21 09:18 05/09/21 11:20 Temperature Pulse Rate 49 L Respiratory Rate Blood Pressure 123/52 L Pulse Oximetry 99 98 05/09/21 11:30 Temperature 97.4 F L Pulse Rate 68 Respiratory Rate 18 Blood Pressure 130/58 L Pulse Oximetry 98 Oxygen Delivery Method Room Air Oxygen Flow Rate 0 Narrative Exam Narrative: GENERAL: pleasant elderly male in no obvious distress HENNC Other:??HEENT:? Normocephalic atraumatic, extraocular muscles are intact, oropharynx is clear, neck is supple without adenopathy Resp Other:??lungs: Decreased breath sounds but clear to auscultation Cardio Other:??cardiac exam: Regular rate rhythm normal S1-S2 with a 3/6 systolic ejection murmur GI Other:??abdomen:? Soft and nontender, right upper quadrant palpable liver edge noted Skin Other:??multiple bruising on the hands which appear to be chronic Neuro Other:??neuro exam is nonfocal Extrem Other:??no lower extremity edema Objective Labs Result Diagrams: 05/09/21 04:30 05/09/21 04:30 Labs: Laboratory Results - last 24 hr 05/08/21 05/08/21 05/09/21 18:13 18:13 04:30 WBC 12.5 H 13.4 H RBC 3.53 L 3.32 L Hgb 10.8 L 10.0 L Hct 33.2 L 31.5 L MCV 94.1 94.9 MCH 30.6 30.2 MCHC 32.5 31.9 RDW 14.0 13.7 Plt Count 210 183 Neut % (Auto) 84.6 H 82.5 H Lymph % (Auto) 6.5 L 5.2 L Stephen[place] % (Auto) 8.0 10.7 Eos % (Auto) 0.2 L 0.5 L Baso % (Auto) 0.7 1.1 Neut # (Auto) 92842 H 67358 H Lymph # (Auto) 800 L 700 L Stephenson # (Auto) 1000 H 1400 H Eos # (Auto) 0 100 Baso # (Auto) 100 100 Sodium 138 Potassium 4.0 Chloride 102 Carbon Dioxide 27 BUN 30 H Creatinine 2.07 H Estimated GFR 31.3 L BUN/Creatinine Ratio 14.5 Glucose 176 H Calcium 8.8 Magnesium Total Bilirubin AST ALT Alkaline Phosphatase NT-Pro-B Natriuret Pep Total Protein Albumin Globulin Albumin/Globulin Ratio 05/09/21 05/09/21 04:30 04:30 WBC RBC Hgb Hct MCV MCH MCHC RDW Plt Count Neut % (Auto) Lymph % (Auto) Stephen[place] % (Auto) Eos % (Auto) Baso % (Auto) Neut # (Auto) Lymph # (Auto) Stephen[place] # (Auto) Eos # (Auto) Baso # (Auto) Sodium 137 Potassium 3.8 Chloride 104 Carbon Dioxide 25 BUN 32 H Creatinine 2.11 H Estimated GFR 30.6 L BUN/Creatinine Ratio 15.2 Glucose 121 H Calcium 8.3 L Magnesium 1.6 Total Bilirubin 0.5 AST 34 ALT 15 Alkaline Phosphatase 52 NT-Pro-B Natriuret Pep 2980 H Total Protein 5.9 L Albumin 3.2 L Globulin 2.7 Albumin/Globulin Ratio 1.2 PFSH Medical History Age-related nuclear cataract Atrial enlargement, bilateral Bladder cancer (07/22/19) Bladder tumor BPH (benign prostatic hyperplasia) BPH w urinary obs/LUTS CKD (chronic kidney disease) Class 1 obesity (09/18/15) Diabetes Easy bruisability Former smoker History of chemotherapy History of primary bladder cancer History of UTI HLD (hyperlipidemia) HTN (hypertension) Presence of intraocular lens Recurrent malignant neoplasm of bladder Right inguinal hernia Surgical History H/O tooth extraction H/O vasectomy History of colonoscopy Hx of bilateral cataract extraction Hx of cystoscopy (07/26/19) Hx of cystoscopy (10/27/19) Hx of cystoscopy (11/18/19) Hx of cystoscopy (05/03/20) Hx of cystoscopy (05/14/20) Hx of transurethral destruction of bladder lesion (08/05/19) Family History (Updated 05/08/21 @ 16:33 by Liat Rodríguez MD) Mother No problems noted. Other Diabetes mellitus Social History household members: spouse Smoking Status: Former smoker alcohol intake: former Assessment & Plan Assessment & Plan narrative: 76-year-old male admitted to the hospital for enterococcal bacteremia 1. Enterococcus bacteremia presumed urinary source, and acute - he has a history of a bladder cancer diagnosed in June of 2019 as well as BPH, as well as BPH with urinary obstruction - he has had previous urinary tract infections due to Enterococcus. 05/07 cultures with E. faecalis. Blood cultures still pending. Repeat blood cultures 05/08 negative. - suspect Enterococcus bacteremia is resulting from his urine however given his murmur on exam will obtain cardiac echo for completeness. TTE pending. - Narrowed to levofloxacin, dosed renally. Starting today. 2.? chronic kidney disease stage 3 - creatinine 1.96 which is about baseline, slowly rising. - patient with known BPH and urinary obstruction - will avoid nephrotoxic agent - will follow electrolytes closely 3.? type 2 diabetes - patient previously on metformin - will hold at this time but start sliding scale insulin 4.? recent diagnosis of pneumonia - patient is currently not hypoxic - white count elevated at 13, procalcitonin 0.29 - levaquin will cover 5.? hypertension - continue lisinopril 6.? hyperlipidemia - continue atorvastatin 8.? history of urinary retention - continue tamsulosin and finasteride 9.? generalized weakness - likely related to bacteremia. Improving thus far. - continue PT/OT ? ?patient reports his is his surrogate decision maker.? He expresses a desire to be full code. ? I have utilized all available resources to review update and confirm current medication list Dispo: possible discharge home tomorrow if blood cultures return and he continues to improve on antibiotic therapy. Time Spent With Patient Critical Care time: I spent a total of [] minutes of critical care time on this patient's care today; this time is exclusive of procedural time.
--- NOTE | 2021-05-09 19:02 | PC.NURSE ---
Addendum entered by Laura Campuzano R.N. 05/09/21 22:40: Using urinal while in bed. Admits to being able and strong enough to reposition and turn self independently in bed as desired. Spouse is rooming in overnight. No concerns or complaints verbalized by pt. Meds whole with water without difficulty. Original Note: Pt resting quietly in bed awake, alert. Spouse is at bedside. Pt reports took evening meal well. Discussion with pt and pt's spouse if at any time feels as though unable to completely empty bladder to notify staff and bladder scan can be done to assess. Pt verbalizes understanding and agreement. BL calf scd's placed as per MD order. Pt denies pain. Tele in place. Fragile skin to BL UE's. Trevor Jasso phones this [facility]ha underwriter to inform pt's blood cultures positive for gram positive cocci. Dr. Virgen in house and was informed by this [facility]ha underwriter.
[2021-05-09] MEDS: ATORVASTATIN 20 MG TABLET 10 MG PO (20:47)
[2021-05-09] MEDS: SODIUM CHLORIDE 0.9% FLUSH 10 ML IV (20:48)
[2021-05-10] VITALS (7 sets, daily range): BP systolic 135–143; BP diastolic 59–65; PULSE 50–60; RESP 16–18; TEMP 36.7–36.9; O2SAT 95–98
[2021-05-10 07:18] LABS: Add Manual Diff / Slide Review NO; Basophils Absolute Auto 100 /uL (0-100); Basophils Percent Auto 0.9 % (0-2); Eosinophils Absolute Auto 200 /uL (0-450); Eosinophils Percent Auto 2.4 % (2-4); Hematocrit 33.6 % (41-53); Lymphocytes Absolute Auto 1200 /uL (1100-4500); Lymphocytes Percent Auto 13.5 % (25-40); Mean Corpuscular HGB Conc 32.7 % (30-36); Mean Corpuscular Volume 94.7 fL (80-100); Monocytes Absolute Auto 900 /uL (0-900); Monocytes Percent Auto 10.6 % (3-14); Neutrophils Absolute Auto 6300 /uL (1500-7000); Neutrophils Percent Auto 72.6 % (50-75); Platelet Count 208 X10^3/uL (150-400); Red Blood Cell Count 3.55 X10^6/uL (4.5-5.9); White Blood Cell Count 8.7 X10^3/uL (4.5-11.0)
[2021-05-10 07:28] LABS: Alanine Aminotransferase 23 IU/L (<50); Albumin 3.4 g/dL (3.5-5.0); Albumin Globulin Ratio 1.2 (1.0-2.8); Alkaline Phosphatase 55 U/L (38-126); Aspartate Aminotransferase 37 IU/L (17-59); BUN Creatinine Ratio 15.2 (6-22); Bilirubin Total 0.3 mg/dL (0.2-1.3); Blood Urea Nitrogen 30 mg/dL (9-20); Calcium 8.6 mg/dL (8.4-10.2); Carbon Dioxide 23 mmol/L (22-32); Chloride 104 mmol/L (98-107); Estimated Glomerular Filt Rate 32.9 mL/min (>60); Globulin 2.9 g/dL (1.7-4.1); Glucose 112 mg/dL (80-110); HEMOLYSIS < 15 (0-50); Magnesium 2.1 mg/dL (1.6-2.3); Sodium 136 mmol/L (137-145); Total Protein 6.3 g/dL (6.3-8.2)
[2021-05-10] MEDS: AMOXICILLIN 250 MG CAPSULE 500 MG PO ×2 (09:28→13:24)
[2021-05-10] MEDS: ENOXAPARIN 40 MG/0.4 ML SYRINGE SUBCUT (09:28)
[2021-05-10] MEDS: lisinopriL 5 MG TABLET 2.5 MG PO (09:28)
[2021-05-10] MEDS: TAMSULOSIN 0.4 MG CAPSULE PO (09:28)
[2021-05-10] MEDS: FINASTERIDE 5 MG TABLET PO (09:29)
[2021-05-10] MEDS: SODIUM CHLORIDE 0.9% FLUSH 10 ML IV (09:29)
[2021-05-10] MEDS: ASCORBIC ACID 500 MG TABLET 1000 MG PO (09:29)
--- NOTE | 2021-05-10 11:38 | PM.DS.1 ---
History of Present Illness History of Present Illness Date Patient Seen: 05/10/21 Time Patient Seen: 11:38 Chief complaint: Possible sepsis Narrative: Per Dr. Rodríguez, ?the patient is a 76-year-old male with a history of bladder tumor, BPH, chronic kidney disease, type 2 diabetes, history of urinary tract infection, hyperlipidemia, hypertension who? was evaluated for urinary tract infection and pneumonia.? He presented with a chief complaint of weakness.? He was given a prescription for Levaquin.? The patient lives on [facility] in by the time he returned home he had not received picked up his prescription for the Levaquin.? The emergency department was made aware that his blood cultures were positive for Enterococcus.? They called to check on the patient and was notified that he was on the floor due to weakness.? The patient states that he did not fall.? He just slid to the floor and was unable to get up.? He denies any fever chills or shortness of breath.? He was instructed to return to the emergency room.? Patient was airlifted to the emergency department for further evaluation. ? Patient was diagnosed with bladder cancer in July of this year.? He underwent chemotherapy for that.? He does report a 50 lb weight loss between July and October of this year.? Otherwise he feels that his weight is stable.? He typically is able to ambulate.? For the past 2 days he has been significantly weaker such that once he is down on the ground he is unable to lift himself back up.? He denies any dysuria hematuria or pyuria.? He denies fever chills.? He denies any cough or shortness of breath.? The patient was vaccinated for COVID-19.? Patient had a chest x-ray in the emergency room which was negative.? He is admitted to the hospital for inpatient treatment of Enterococcus.? Of note the patient has had previous bacterial infections due to Enterococcus.? Sensitivities are available and he will be initiated on Zosyn as this was previously? found to be appropriate per sensitivities. Discharge Providers Provider Date of admission: 05/08/21 14:38 Discharge Date: 05/10/21 Primary care physician: Jamie Escobedo MD Consults: 05/08/21 16:25 Consult to Dietitian, Adult Routine Comment: 50 pound weight loss Reason For Exam: evaluate weight loss Consult to Occupational Therapy Evaluate & Treat Comment: Physician Instructions: Evaluate and treat Consult to Physical Therapy Evaluate & Treat Comment: Physician Instructions: Evaluate and Treat Discharge provider: Sunny Virgen DO Summary Hospital Course Discharge Diagnosis: Please see hospital course by problem list noted below Hospital Course: 76-year-old male admitted to the hospital for enterococcal bacteremia seconary to urinary source. 1. E. Faecalis bacteremia secondary to acute cystitis - he has a history of a bladder cancer diagnosed in June of 2019 as well as BPH, as well as BPH with urinary obstruction - he has had previous urinary tract infections due to Enterococcus. 05/07 cultures with E. faecalis. Blood cultures with same sensitive to ampicillin. Repeat blood cultures 05/08 negative. - suspect Enterococcus bacteremia is resulting from his urine. TTE without evidence for valvular pathology, blood cultures cleared quickly. -Given clear urinary source, he can discharge on oral levaquin (moxifloxacin not available at patient's pharmacy) with amoxicillin for total 2 week course. Recommend PCP follow up, consider repeat blood cultures as an outpatient after completion of antibiotic therapy. 2.? chronic kidney disease stage 3 - creatinine near baseline this admission. 3.? type 2 diabetes - treated with sliding scale insulin during admission. No changes recommended on discharge. 4.? recent diagnosis of pneumonia - covered by levaquin on discharge. 5.? hypertension - continue lisinopril 6.? hyperlipidemia - continue atorvastatin 8.? history of urinary retention - continue tamsulosin and finasteride 9.? generalized weakness - likely related to bacteremia. Improved over admission. ? ?patient reports his is his surrogate decision maker.? He expresses a desire to be full code. ? I have utilized all available resources to review update and confirm current medication list Time Spent with Patient Time spent: Greater than 30 minutes Exam Vital Signs (past 8 hours): - 05/10/21 05:00 05/10/21 08:00 Temperature 98.3 F Pulse Rate 50 L Respiratory Rate 16 Blood Pressure 143/65 H Pulse Oximetry 95 97 Oxygen Delivery Method Room Air Oxygen Flow Rate 0 Narrative Exam Narrative: GENERAL: pleasant elderly male in no obvious distress HENMT Other:??HEENT:? Normocephalic atraumatic, extraocular muscles are intact, oropharynx is clear, neck is supple without adenopathy Resp Other:??lungs: Decreased breath sounds but clear to auscultation Cardio Other:??cardiac exam: Regular rate rhythm normal S1-S2 with a 3/6 systolic ejection murmur GI Other:??abdomen:? Soft and nontender, right upper quadrant palpable liver edge noted Skin Other:??multiple bruising on the hands which appear to be chronic Neuro Other:??neuro exam is nonfocal Extrem Other:??no lower extremity edema Objective Labs Result Diagrams: 05/10/21 06:35 05/10/21 06:35 Labs: Laboratory Results - last 24 hr 05/10/21 05/10/21 06:35 06:35 WBC 8.7 RBC 3.55 L Hgb 11.0 L Hct 33.6 L MCV 94.7 MCH 31.0 MCHC 32.7 RDW 14.0 Plt Count 208 Neut % (Auto) 72.6 Lymph % (Auto) 13.5 L [place] % (Auto) 10.6 Eos % (Auto) 2.4 Baso % (Auto) 0.9 Neut # (Auto) 6300 Lymph # (Auto) 1200 [place] # (Auto) 900 Eos # (Auto) 200 Baso # (Auto) 100 Sodium 136 L Potassium 4.0 Chloride 104 Carbon Dioxide 23 BUN 30 H Creatinine 1.98 H Estimated GFR 32.9 L BUN/Creatinine Ratio 15.2 Glucose 112 H Calcium 8.6 Magnesium 2.1 Total Bilirubin 0.3 AST 37 ALT 23 Alkaline Phosphatase 55 Total Protein 6.3 Albumin 3.4 L Globulin 2.9 Albumin/Globulin Ratio 1.2 PFSH Medical History Age-related nuclear cataract Atrial enlargement, bilateral Bladder cancer (07/22/19) Bladder tumor BPH (benign prostatic hyperplasia) BPH w urinary obs/LUTS CKD (chronic kidney disease) Class 1 obesity (09/18/15) Diabetes Easy bruisability Former smoker History of chemotherapy History of primary bladder cancer History of UTI HLD (hyperlipidemia) HTN (hypertension) Presence of intraocular lens Recurrent malignant neoplasm of bladder Right inguinal hernia Surgical History H/O tooth extraction H/O vasectomy History of colonoscopy Hx of bilateral cataract extraction Hx of cystoscopy (07/26/19) Hx of cystoscopy (10/27/19) Hx of cystoscopy (11/18/19) Hx of cystoscopy (05/03/20) Hx of cystoscopy (05/14/20) Hx of transurethral destruction of bladder lesion (08/05/19) Family History (Updated 05/08/21 @ 16:33 by Liat Rodríguez MD) Mother No problems noted. Other Diabetes mellitus Social History household members: spouse Smoking Status: Former smoker alcohol intake: former Discharge Plan Discharge Plan Patient Disposition: Home Provider Discharge Comment: You were admitted to the hospital with a bacteria in your blood stream due to a UTI. You are recommended to continue on 2 antibiotics for 10 more days. please finish all antibiotics. Discharge orders & Medications Prescriptions: New amoxicillin 500 mg tablet 500 mg PO TID 10 Days Qty: 30 RF: 0 levofloxacin 750 mg tablet 750 mg PO Q48H 10 Days Qty: 5 RF: 0 Continued metformin 1,000 MG tablet 1,000 mg PO BIDCC Qty: 180 RF: 3 tamsulosin 0.4 mg capsule 0.4 mg PO BID Qty: 180 RF: 3 finasteride 5 mg tablet 5 mg PO DAILY Qty: 90 RF: 3 cholecalciferol (vitamin D3) [Vitamin D3] 25 mcg (1,000 unit) Capsule 25 mcg PO DAILY RF: 0 melatonin 5 mg Tablet 5 mg PO BEDTIME PRN (Reason: Sleep) RF: 0 [place] 3-6-9 1,200 mg Capsule 1 cap PO BID RF: 0 atorvastatin 10 mg Tablet 10 mg PO BEDTIME RF: 0 lisinopril 2.5 mg Tablet 2.5 mg PO DAILY RF: 0 loratadine [Allerclear] 10 mg Tablet 10 mg PO DAILY PRN (Reason: Allergy Symptoms) RF: 0 ascorbic acid (vitamin C) [Vitamin C] 1,000 mg Tablet 1,000 mg PO DAILY RF: 0 Medication counseling provided by Pharmacist: Yes Follow up/Referrals: Jamie Escobedo MD [Primary Care Provider] - Diet/Activity/Treatments Diet: Diet as Tolerated Activity: As tolerated Visit Report/Discharge Packet Instructions: DI for Pneumonia -- Adult, DI for Urinary Tract Infection (UTI), DI for Bacteremia-Adult Discharge Data Primary Care Provider: Jamie Escobedo
--- NOTE | 2021-05-10 12:10 | PT.IPTN ---
Current Diagnoses Urinary tract infection, site not specified (05/08/21) Physical Therapy Treatment Note M2 PT-IP Current Condition Start: 05/09/21 12:44 Freq: NEEDED Status: Active Protocol: Document 05/09/21 11:35 AB (Rec: 05/09/21 12:57 AB [email or web address]) Physical Therapy Current Condition Current Condition Evaluation Date 05/09/21 Treatment Diagnosis UTI; PNA; difficulty in walking Onset Date 05/08/21 M3 PT-IP Subjective Start: 05/09/21 12:44 Freq: NEEDED Status: Active Protocol: Document 05/10/21 12:10 AB (Rec: 05/10/21 13:26 AB [id number]) Subjective Physical Therapy Visit Type Type Treatment Note Visit Start Time 12:10 Visit Stop Time 12:45 Total Visit Minutes 35 Number of COUNTER [employer]PPLY WORKER Visits 0 Physical Therapy Visit Comments Patient Comments pt is agreeable to do PT M4 PT-IP Mobility and Gait Start: 05/09/21 12:44 Freq: NEEDED Status: Active Protocol: Document 05/10/21 12:10 AB (Rec: 05/10/21 13:26 AB [email or web address]) PT-Bed Mobility Assessment Supine to Sit Supine to Sit Standby Assistance PT-Transfer Assessment Sit to and From Stand Sit to and from Stand Standby Assistance,Use of Upper Extremities Equipment Transfer Assistive Device Gait Belt,4 Wheeled Walker Orthotic/Prosthetic Devices or Brace: No Transfers Transfer Destination Chair,Toilet Transfer Technique ambulated using 4WW Transfer Ability Level of Assist Standby Assistance,Use of Upper Extremities Comments Mobility Comments pt agreed to do PT. spouse stated that they got a 4WW from the [facility]. pt completed supine to sit SBA. requested to use the toilet. educated on how to use 4WW. completed sit to stand SBA and ambulated to the toilet using 4WW SBA. requires cues for brakes management. pt ambulated out of the toilet using 4WW SBA towards the sink SBA and was able to maintain standing SBA while completing handwashing. pt ambulated to the chair using 4WW SBA. educated again on brake management. pt ambulated to the hallway ~ 150 ft using 4WW SBA. completed up/down steps using R rail SBA and ambulated to the room. agreed to sit up on the chair for lunch. positioned on chair. call light and table placed within reach. Gait Assessment Gait Gait Assistance Required: Standby Assistance Distance (Feet) 150 Able to Maintain Weight Bearing Status Yes During Gait Assistive Devices Assistive Device Gait Belt,4 Wheeled Walker Orthotic/Prosthetic Devices or Brace: No Gait Deviations General Gait Pattern Flexed Trunk Factors Limiting Gait Function Factors Limiting Gait Function Decreased Activity Tolerance, Decreased Strength,Poor Balance,Poor Safety Awareness Stair Climbing Assessment Evaluation Level of Assist On Stairs Standby Assistance Devices Stair Climbing Assistive Devices Right Railing Technique/Endurance Stair Climbing Direction Ascend and Descend Stair Climbing Technique Step Over Step Number of Steps Climbed 3 Stair Climbing Set # Repetitions (reps) 2 M5 PT-IP Objective Assessments Start: 05/09/21 12:44 Freq: NEEDED Status: Active Protocol: Document 05/09/21 11:35 AB (Rec: 05/09/21 12:57 [email or web address] Orientation Orientation/Cognition Level of Alertness Alert Orientation Name,Place,Situation Safety Awareness Decreased Safety Awareness Gross Range of Motion Lower Extremity ROM Assessment Within Functional Limits Strength Lower Extremity Strength Assessment Within Functional Limits Sensation Assessment Sensation Gross Sensation WNL Muscle Tone Muscle Tone WNL Yes M6 PT-IP Treatment Start: 05/09/21 12:44 Freq: NEEDED Status: Active Protocol: Document 05/10/21 12:10 AB (Rec: 05/10/21 13:26 AB [email or web address]) Physical Therapy Treatment Education Education Provided Safety M7 PT-IP Assessment and Plan Start: 05/09/21 12:44 Freq: NEEDED Status: Active Protocol: Document 05/10/21 12:10 AB (Rec: 05/10/21 13:26 AB [email or web address]) PT Summary Assessment and Plan Potential Rehabilitation Potential Good Summary Impairments Pain,ROM,Strength,Balance, Coordination,Sensation,Tone, Cognition,Bed Mobility, Transfers,Gait,Activity Tolerance Progress Towards Goals Progressing Toward Goals Assessment Summary pt progressing with mobility and able to ambulate using 4WW SBA. pt plans to go home with spouse. pt will also benefit from outpt PT. Goals Bed Mobility Goal Independent Transfer Goal Independent,Four Wheeled Walker Gait Goal Independent,Four Wheel Walker Gait Distance 200 Other Goals improve ambulation without AD 250 ft SBA up/down 6 steps 1 rail mod I Days to Meet Goals 5 Frequency of Treatment Frequency Of Treatment Once a Day Treatment Plan Physical Therapy Treatment Plan Bed Mobility Training,Transfer Training,Gait Training, Therapeutic Exercise,Balance Retraining,Post Op Education, Discharge Planning,Hot or Cold Pack,Neuromuscular Re-ed, Coordination Retraining,Manual Therapy Precautions Other Precautions falls Recommendations To Nursing Amount of Assist Needed 1 Person Assist Discharge Recommendations PT Discharge Recommendations Home with Assistance, Outpatient PT Transportation Needs at Discharge Private Vehicle
--- NOTE | 2021-05-10 14:51 | OT.IP.TRT ---
Current Diagnoses Urinary tract infection, site not specified (05/08/21) Occupational Therapy Treatment Note M2 OT-IP Current Condition Start: 05/09/21 14:37 Freq: Status: Active Protocol: Document 05/09/21 12:49 [facility] (Rec: 05/09/21 14:49 [facility] [id number]) Occupational Therapy Current Condition Current Condition Evaluation Date 05/09/21 Treatment Diagnosis UTI, weakness Diagnosis Onset Date 05/08/21 M3 OT- IP Subjective and Pain Start: 05/09/21 14:37 Freq: Status: Active Protocol: Document 05/10/21 14:23 [facility] (Rec: 05/10/21 14:50 [facility] [id number]) OT- Subjective Occupational Therapy Visit Type Type Treatment Note Visit Start Time 14:03 Visit Stop Time 14:20 Total Visit Minutes 17 Occupational Therapy Visit Comments Patient Comments Pt not wanting to shower at this time but agreed to do cognitive assessment. Patient/Caregiver Goals TO go home. OT Pain Assessment Pain When Pain Assessed At Rest Pain Present Pain Present Denied Pain M4 OT- IP ADL's Start: 05/09/21 14:37 Freq: Status: Active Protocol: Document 05/09/21 12:49 [facility] (Rec: 05/09/21 14:49 [facility] [id number]) OT [id number]-[id number] General Evaluation Self-Feeding Ability Independent OT ADL-Grooming General Evaluation Grooming Ability Independent Comments OT Grooming Comments Able to stand at the sink for grooming needs with FWW. OT ADL-Oral Care General Eval Oral Care Ability Independent OT ADL-Dressing General Eval Lower Body Dressing Ability Standby Assistance Comments OT Dressing Comments Pt able to aubree/doff his socks while seated. Pt states prior able to stand to aubree/ doff his pants and at time leans on the dresser for balance. OT ADL-Toileting General Evaluation Toileting Ability Standby Assistance OT ADL-Bathing Comments OT Bathing Comments Pt too tired to attempt at this time. Suggested may be best to have a shower chair to use for home. M5 OT- IP IADL's Start: 05/09/21 14:37 Freq: Status: Active Protocol: Document 05/09/21 12:49 [facility] (Rec: 05/09/21 14:49 [facility] [id number]) OT-Instrumental Activities of Daily Living Home Safety Awareness Home Safety Comments Pt very tired and to continue to assess for his safety needs . M6 OT- IP Functional Cognition Start: 05/09/21 14:37 Freq: Status: Active Protocol: Document 05/10/21 14:23 [facility] (Rec: 05/10/21 14:50 [facility] [id number]) Cognitive Factors Limiting Selfcare Function Cognitive Ability Level of Alertness Alert Patient Orientation Name,Place,Situation Attention Span Ability Capable of Focused Attention, Capable of Sustained Attention Ability to Follow Commands Able to Follow One Step Commands Problem Solving Ability Needs Assist to Identify Solutions Executive Function Ability Unable to Remember Details Cognitive Comments Cognitive Assessment Comments Pt scored 195 seconds on [place] Making Part B which implies severe impairment for visual attention, speed of processing , task switching, mental flexibility, and executive functioning and strongly recommended pt not drive. Pt agrees that he will not drive yet. Pt states he will not drive. Encouraging pt to take a shower here, but states would rather take one at home . However, pt's states does not have a shower chair yet. Let pt know that his can assist him for shower if he wants, but pt still not wanting to shower. Let nursing staff know to encourage pt to shower prior to going home. M7 OT- IP Mobility and Balance Start: 05/09/21 14:37 Freq: Status: Active Protocol: Document 05/09/21 12:49 [facility] (Rec: 05/09/21 14:49 [facility] [id number]) OT- Bed Mobility Assessment Sit to Supine Sit to Supine Assist Standby Assistance OT-Transfer Assessment Sit to and From Stand Sit to and from Stand Standby Assistance,Contact Guard Assistance Transfers Transfer Ability Standby Assistance,Contact Guard Assistance,Minimal Assistance Technique Transfer Destination Bed,Chair,Toilet Transfer Technique Stand Step Pivot Devices Transfer Assistive Devices None,Gait Belt,Front Wheeled Walker Comments Mobility Comments Pt RAY/CGA to transfer without device and SBA with FWW. Able to show pt 4ww but to tired to try today. OT- Gait Assessment Comments Gait Ability Comments CGA/SBA with FWW OT- Balance Assessment Sitting Balance and Reactions Static Sitting Balance Ability Good Dynamic Sitting Balance Ability Good Standing Balance and Reactions Static Standing Balance Ability Fair Dynamic Standing Balance Ability Fair M8 OT- IP Objective Assessments Start: 05/09/21 14:37 Freq: Status: Active Protocol: Document 05/09/21 12:49 [facility] (Rec: 05/09/21 14:49 [facility] [id number]) OT Gross Range of Motion Upper Extremity Range of Motion Assessment Right Impaired ROM Impairments RUE shoulder abduction 0-100, LUE 0-120 OT Strength Comments Strength Comments BUE from proximal to distal 4- /5 to 4+/5. M9 OT- IP Assessment and Plan Start: 05/09/21 14:37 Freq: Status: Active Protocol: Document 05/10/21 14:23 [facility] (Rec: 05/10/21 14:50 [facility] [id number]) OT Summary Assessment and Plan Potential Rehabilitation Potential Good Analytic Complexity at Evaluation Moderate Summary OT Impairments Strength,Balance,Functional Mobility,Grooming,Dressing, Bathing,Toilet Transfers, Shower Transfers,Activity Tolerance Progress Towards Goals Progressing Toward Goals Assessment Summary Pt looking to go home today. Pt's to assist with his needs and pt aware not to drive at this time. Goals Grooming Goal Independent Dressing Goal Independent Toileting Goal Independent Bathing Goal Independent Toilet Transfer Goal Independent Days to Meet Goals 6 Frequency of Treatment Frequency Of Treatment Once a Day Treatment Plan OT Treatment Plan ADL Training,Functional Mobility,Patient/Family Education,Discharge Planning Discharge Recommendations OT Discharge Recommendations Home with 24/7 Assist Available Home Equipment Needs Shower chair, 4WW Transportation Needs at Discharge Private Vehicle
--- NOTE | 2021-05-10 15:50 | CM.DPNOTE ---
DC Note According to MARIAH Marquez, patient and spouse eager to return home, plan to catch an evening ferry...as many daytime ferries have been cancelled. No needs identified from this [employer]. Home on po abx and w/supportive spouse to assist as needed JW
--- NOTE | 2021-05-10 16:42 | PC.NURSE ---
Addendum entered by Dilshad Brady R.N. 05/10/21 16:58: pt escorted down to personal vehicle by aid via wheelchair. All belongings in hand. Original Note: Discharge paperwork reviewed with spouse at bedside, all questions and concerns addressed. Patient's IV removed w/out difficultly and tele monitor taken off (ICU aware). Nursing Aid in room to assist pt. to dress.
--- NOTE | 2021-05-10 16:56 | DIET.PN1 ---
Dietary Progress Note Assessment: No new weight recorded today. Seems last few weights were from previous visits. Potential significant weight loss. RD caught pt just as he was discharging. Denied any questions about nutrition at this time. Ht: 187.96 cm Wt: 83.915 kg BMI: 23.7 Last BM: 05/10/21 (05/10/21 13:00) MNA: 14 Mian Score: 20 Diet: 05/08/21 Dinner Carbohydrate Consistent Diet Diet Modifications: Safety Tray needed?: No Carbohydrate level: Medium (3 CHO) Bedtime snack: No Nutrition Percent Meal Consumed 50% 05/10/21 13:26 Percent Meal Consumed 100% 05/10/21 09:00 Percent Meal Consumed 50% 05/09/21 18:25 Percent Meal Consumed 50% 05/09/21 13:49 Percent Meal Consumed 100% 05/09/21 10:32 Percent Meal Consumed 100% 05/09/21 09:00 Percent Meal Consumed 75% 05/08/21 18:28 Electronically Signed by: Fany Suggs 05/10/21 16:56 Clinical Dietitian [address] [id number]
== END 2021-05-10 16:30 | disposition home or self-care (01) | DRG 690 ==
LOC: ED 14:30 → AC 14:38
PROVIDERS: Internal Medicine; Admitting Provider Internal Medicine; Emergency Provider Emergency Medicine; PCP Family Medicine; Referring Provider Emergency Medicine; Visit Provider Internal Medicine
DX: N30.00 Acute cystitis without hematuria (principal); R78.81 Bacteremia; B95.2 Enterococcus as the cause of diseases classified elsewhere; N40.1 Benign prostatic hyperplasia with lower urinary tract symptoms; N13.8 Other obstructive and reflux uropathy; E78.5 Hyperlipidemia, unspecified; E11.22 Type 2 diabetes mellitus with diabetic chronic kidney disease; I12.9 Hypertensive chronic kidney disease with stage 1 through stage 4 chronic kidney disease, or unspecified chronic kidney disease; N18.30 Chronic kidney disease, stage 3 unspecified; Z79.84 Long term (current) use of oral hypoglycemic drugs; Z20.822 Contact with and (suspected) exposure to COVID-19; Z87.891 Personal history of nicotine dependence
CPT/HCPCS: 36415; 51701; 71045; 80048; 80053; 81001; 82962; 83605; 83690; 83735; 83880; 84145; 84484; 85025; 87040; 87077; 87086; 87150; 87186; 87205; 87635; 93005; 93010; 93306; 94760; 96365; 97116; 97129; 97161; 97166; 97530; 99284; C9803; J1650; J1815; J1956; J2543; J3475

== ENCOUNTER → 2021-07-01 13:34 | Outpatient (CLI) | payer MEDICARE, OTHER, SELFPAY ==
[2021-05-08 16:04] VITALS: BMI 23.7
[2021-07-02 20:16] LABS: Hemoglobin A1C% w Est Avg Glu 5.7 % (4.0-6.0)
== END ==
PROVIDERS: PCP Family Medicine; Referring Provider Family Medicine; Visit Provider Family Medicine
DX: E11.9 Type 2 diabetes mellitus without complications (principal)
CPT/HCPCS: 83036

== ENCOUNTER 2021-07-06 13:50 | Emergency (ER) | payer MEDICARE, OTHER, SELFPAY ==
[2021-05-08 16:04] VITALS: BMI 23.7
[2021-07-06] VITALS (13 sets, daily range): BP systolic 131–198; BP diastolic 58–84; PULSE 52–69; RESP 16–28; O2SAT 89–100; BMI 22.2
--- NOTE | 2021-07-06 14:39 | DI.RAD.S_ITS ---
PROCEDURE: XR CHEST 1V INDICATIONS: altered mental status TECHNIQUE: One view of the chest was acquired. COMPARISON: [facility], CR, XR CHEST 1V, 05/08/2021, 13:23. FINDINGS: Surgical changes and devices: None. Lungs and pleura: Multiple new nodular densities within the bilateral mid and lower lungs. No pleural effusions or pneumothorax. Mediastinum: Mediastinal contours appear normal. Heart size is normal. Bones and chest wall: No suspicious bony lesions. Overlying soft tissues appear unremarkable. IMPRESSION: Bilateral pulmonary nodular densities, possibly indicating metastatic disease. Atypical appearance of multifocal pneumonia could produce a similar appearance. Dictated by: Graciela Stone M.D. on 07/06/2021 at 14:15 Approved by: Graciela Stone M.D. on 07/06/2021 at 14:17
--- NOTE | 2021-07-06 15:01 | ED.AMS ---
HPI - Altered Mental Status General Chief Complaint: Altered Mental Status Stated Complaint: STROKE Time Seen by Provider: 07/06/21 14:46 Source: patient and family Mode of arrival: Wheelchair History of Present Illness HPI narrative: The patient got out of bed about 530 this morning to go to the bathroom. On his way back he became quite weak. His had to help him. Once in bed he was shaking, not responding to her well. She finally called EMS. He had no chest pain, no cough, no weakness. He was not having difficulty breathing. He memory to the events of this morning or vague. He is now oriented. He complains of weakness. He has no headache, sore throat, cough or fever. He has no chest pain. He has no slurred speech. Has no facial weakness or numbness, no peripheral weakness or numbness. About 2 weeks ago he was stumbling, his was concerned that he may have had a TIA, but he was not evaluated. His behavior has changed. He was a daily reader, he is not really much eating more. His energy has decreased significantly. He was admitted April 2021 with Enterococcus bacteremia. He is under neurology care for BPH. It is noted he also has a history of bladder cancer. He has no difficulty with making a stream of urine at this time. He denies visual changes. He has no focal numbness or weakness. He has no speech changes. His generalized weakness. He has no weight loss or weight gain. He is diabetic. Glucose monitoring was not done this morning. Related Data Home Medications Medication Instructions Recorded Confirmed fish, borage, flaxseed oils-omega 1 cap PO BID 08/05/19 06/05/21 3,6,9 comb no.1 1,200 mg capsule ([place] 3-6-9) lisinopril 2.5 mg tablet 2.5 mg PO DAILY 08/05/19 06/05/21 loratadine 10 mg tablet 10 mg PO DAILY PRN 11/04/19 06/05/21 (Allerclear) ascorbic acid (vitamin C) 1,000 mg 1,000 mg PO DAILY 12/07/20 06/05/21 tablet (Vitamin C) cholecalciferol (vitamin D3) 25 25 mcg PO DAILY 05/08/21 06/05/21 mcg (1,000 unit) capsule (Vitamin D3) melatonin 5 mg tablet 5 mg PO BEDTIME PRN 05/08/21 06/05/21 Previous Rx's Medication Instructions Recorded metformin 1,000 mg tablet 1,000 mg PO BIDCC #180 tab 10/14/16 tamsulosin 0.4 mg capsule 0.4 mg PO BID #180 cap 12/06/20 finasteride 5 mg tablet 5 mg PO DAILY #90 tab 02/21/21 atorvastatin 10 mg tablet 10 mg PO BEDTIME #90 tab 06/24/21 Allergies Allergy/AdvReac Type Severity Reaction Status Date / Time No Known Drug Allergies Allergy Verified 07/06/21 14:02 Review of Systems Constitutional Constitutional: Reports as per HPI, Denies body ache(s), Denies chills, Reports fatigue, Denies fever(s), Denies headache(s), Reports lethargy, Reports weakness and Denies weight loss Eyes Eyes: Denies blurry vision, Denies change in vision and Denies loss of vision ENT Ears, Nose, Mouth, and Throat: Denies facial pain, Denies headache(s), Denies sinus pressure and Denies sore throat Cardiovascular Cardiovascular: Denies chest pain, Denies syncope, Denies rapid heart rate, Denies edema and Denies dyspnea Respiratory Respiratory: Denies chest congestion, Denies cough and Denies dyspnea Gastrointestinal Gastrointestinal: Denies melena, Denies constipation, Denies nausea and Denies vomiting Genitourinary Genitourinary: Denies dysuria, Denies urinary frequency and Denies urinary hesitancy Musculoskeletal Musculoskeletal: Denies back pain, Denies arthralgias, Reports muscle weakness and Denies myalgias Integumentary/Breasts Skin/Breast: Denies change in pigmentation and Denies rash Neurologic Neurologic: Reports behavioral changes, Denies confusion, Denies syncope, Denies headache(s), Denies loss of vision, Denies sensory deficit and Reports weakness Psychiatric Psychiatric: Denies anxiety, Reports behavioral changes, Denies confusion, Denies depression and Denies difficulty concentrating Endocrine Endocrine: Reports fatigue Hematologic/Lymphatic On Anticoagulants: No Patient History Medical History Age-related nuclear cataract Atrial enlargement, bilateral Bladder cancer (07/22/19) Bladder tumor BPH (benign prostatic hyperplasia) BPH w urinary obs/LUTS CKD (chronic kidney disease) Class 1 obesity (09/18/15) Diabetes Easy bruisability Former smoker History of chemotherapy History of primary bladder cancer History of UTI HLD (hyperlipidemia) HTN (hypertension) Presence of intraocular lens Recurrent malignant neoplasm of bladder Right inguinal hernia Surgical History H/O tooth extraction H/O vasectomy History of colonoscopy Hx of bilateral cataract extraction Hx of cystoscopy (07/26/19) Hx of cystoscopy (10/27/19) Hx of cystoscopy (11/18/19) Hx of cystoscopy (05/03/20) Hx of cystoscopy (05/14/20) Hx of transurethral destruction of bladder lesion (08/05/19) Family History Mother No problems noted. Other Diabetes mellitus Social History household members: spouse Smoking Status: Former smoker alcohol intake: former Smoking Status: Former smoker Substance Use Type: does not use Exam Initial Vital Signs Initial Vital Signs: Vital Signs Pulse Rate 58 L 07/06/21 13:53 Respiratory Rate 16 07/06/21 13:53 Blood Pressure 131/58 L 07/06/21 13:53 Pulse Oximetry 98 07/06/21 13:53 Const General: cooperative, comfortable and frail appearing Nutritional Appearance: average body habitus Orientation: Orientation (X3) [facility] Head: normal to inspection, normocephalic and atraumatic Face and sinus: normal facial exam Mouth: oral mucosae normal Throat: posterior oropharynx normal Eyes General: appearance normal, both eyes and all related structures Conjunctivae: conjunctivae normal Sclera: sclerae normal Cornea: corneas normal Pupils: PERRL EOM: EOM intact bilaterally Neck Neck: full ROM, No supple and No lymphadenopathy Chest Chest: normal inspection of the chest and No tenderness Resp Effort & Inspection: normal respiratory effort Auscultation: clear to auscultation bilaterally Cardio Palpation: normal PMI Rate: regular rate Rhythm: regular rhythm Heart Sounds: S1 normal, S2 normal, no gallops, no murmurs and no rubs GI Inspection: normal to inspection Palpation: soft, no hepatosplenomegaly, No guarding, No mass and No tender Auscultation: normal bowel sounds Back/Spine/Pelvis Back: normal to inspection, No back tenderness and No CVA tenderness Skin General: no rashes or lesions noted Neuro General: patient alert, patient awake, patient oriented x3 and no focal motor deficits Other: NIHSS is 0 Extrem General: normal to inspection, no pedal edema and no calf tenderness Psych Appearance: well kempt Mental Status: mental status grossly normal Course Course Course Narrative: Chest x-ray and CT of the brain show metastatic cancer. He has cerebral edema, dexamethasone 10 mg IV was given. These findings likely explain recent events as detailed in HPI. The likely source is bladder cancer. I discussed prostate disease with the patient during initial evaluation. The problem list made a brief reference to bladder cancer. Urology records were not initial reviewed as part of his immediate workup, however those records reviewed and he has had extensive care with multiple clinical visits regarding bladder cancer. After bringing this up with the patient, the patient's response regarding bladder cancer was ?it was mentioned ?. I discussed the case with Dr. Campos, oncology. MRI would be useful but is not available at this hour. He concurred with dexamethasone. Dr Campos requested transfer to [facility] and agrees to see the patient at [facility] in the morning. The patient is clinically stable. He is COVID-19 negative. He has been accepted in transfer by the hospitalist, Dr. Case. Orders Ordered: ED Orders 07/06/21 14:39 XR chest 1V Stat EKG-12 Lead Stat 07/06/21 14:45 Complete Blood Count AUTO DIFF Stat Comprehensive Metabolic Panel Stat 07/06/21 16:23 CT head/brain wo con Stat 07/06/21 17:31 COVID19 -Nasal swab/Pre-Proc Stat Discontinued Medications Dexamethasone (Dexamethasone 10 Mg/Ml Vial) 10 mg IV NOW ONE Stop: 07/06/21 17:09 Last Admin: 07/06/21 17:23 Dose: 10 mg Documented by: Sodium Chloride (Normal Saline 0.9%) 1,000 mls @ 1,000 mls/hr IV BOLUS ONE Stop: 07/06/21 16:09 Last Admin: 07/06/21 15:45 Dose: 1,000 mls/hr Documented by: KBROWNE Sodium Biphosphate/Sodium Phosphate (Fleets Enema) 1 each [place] NOW ONE Stop: 07/06/21 17:33 Vital Signs Vital signs: Vital Signs - 8 hr 07/06/21 13:53 07/06/21 14:05 07/06/21 14:30 Pulse Rate 58 L 64 53 L Respiratory Rate 16 18 Blood Pressure 131/58 L 138/68 Pulse Oximetry 98 96 100 07/06/21 14:36 07/06/21 15:00 07/06/21 15:30 Pulse Rate 52 L 57 L 53 L Respiratory Rate 18 20 19 Blood Pressure 138/68 Pulse Oximetry 96 100 100 07/06/21 16:00 07/06/21 16:30 07/06/21 17:00 Pulse Rate 52 L 54 L 57 L Respiratory Rate 19 19 28 H Blood Pressure Pulse Oximetry 100 100 100 07/06/21 17:05 07/06/21 17:30 Pulse Rate 52 L 54 L Respiratory Rate 18 17 Blood Pressure 138/68 Pulse Oximetry 99 99 MDM - Altered Mental Status Lab Data Result diagrams: 07/06/21 14:45 07/06/21 14:45 Labs: Lab Results 07/06/21 07/06/21 07/06/21 Range/Units 14:45 14:45 17:31 WBC 8.2 (4.5-11.0) X10^3/uL RBC 4.08 L (4.5-5.9) X10^6/uL Hgb 12.6 L (13.5-17.5) g/dL Hct 38.1 L (41-53) % MCV 93.4 (80-100) fL MCH 31.0 (26-34) PG MCHC 33.2 (30-36) % RDW 13.8 (11.6-14.8) % Plt Count 286 (150-400) X10^3/uL Neut % (Auto) 66.1 (50-75) % Lymph % (Auto) 19.4 L (25-40) % [place] % (Auto) 10.0 (3-14) % Eos % (Auto) 4.1 H (2-4) % Baso % (Auto) 0.4 (0-2) % Neut # (Auto) 5400 (8117-9246) /uL Lymph # (Auto) 1600 (1193-0821) /uL [place] # (Auto) 800 (0-900) /uL Eos # (Auto) 300 (0-450) /uL Baso # (Auto) 0 (0-100) /uL Sodium 139 (137-145) mmol/L Potassium 5.0 (3.4-5.1) mmol/L Chloride 104 (98-107) mmol/L Carbon Dioxide 26 (22-32) mmol/L BUN 33 H (9-20) mg/dL Creatinine 1.95 H (0.66-1.25) mg/dL Estimated GFR 33.5 L (>60) mL/min BUN/Creatinine Ratio 16.9 (6-22) Glucose 125 H (80-110) mg/dL Calcium 9.9 (8.4-10.2) mg/dL Total Bilirubin 0.6 (0.2-1.3) mg/dL AST 22 (17-59) IU/L ALT 11 (<50) IU/L Alkaline Phosphatase 105 (38-126) U/L Total Protein 7.7 (6.3-8.2) g/dL Albumin 4.4 (3.5-5.0) g/dL Globulin 3.3 (1.7-4.1) g/dL Albumin/Globulin Ratio 1.3 (1.0-2.8) SARS-CoV-2 (PCR) Negative (Negative) Point of Care Testing Glucose POC 88 Urine Dip Bedside Urine Glucose Negative Bedside Urine Bilirubin - Negative Bedside Urine Ketone - Negative Urine Specific [place] 1.015 Bedside Urine Occult Blood - Negative Bedside Urine pH 6.0 Bedside Urine Protein - Negative Bedside Urine Urobilinogen 0.2 Bedside Urine Nitrite - Negative Bedside Urine Leukocytes - Negative Esterase Imaging Data CT scan - head: Radiologist's Impression: [address] [address] [address] Scan Report Signed Patient: Gilmer Lebron MR#: [id number] : 1945 Acct:[id number] Age/Sex: 76 / M Date of Service: 07/06/21 Loc: ED Accession Number: [id number] ?? Procedure: CT head/brain wo con Ordering Provider: Gilmer Melchor MD PROCEDURE:? CT HEAD/BRAIN WO CON ? INDICATIONS:? Possible TIA ? TECHNIQUE:? Noncontrast 4.5 mm thick angled axial sections acquired from the foramen magnum to the vertex, with coronal and sagittal reformats.? For radiation dose reduction, the following was used:? automated exposure control, adjustment of mA and/or kV according to patient size.? ? COMPARISON:? None. ? FINDINGS:? Image quality:? Excellent.? ? CSF spaces:? Basal cisterns are patent.? No extra-axial fluid collections.? The ventricles are symmetric in size and shape.? ? Brain:? There is moderate diffuse bilateral ill-defined low density within the cerebral hemispheres as well as the cerebellar hemispheres.? There is cerebral volume loss for age, with resultant ventricular and sulcal prominence.? There are periventricular and deep white matter chronic small vessel ischemic changes.? There is intracranial internal carotid artery atherosclerosis.? ? Skull and face:? Calvarium and visualized facial bones appear intact, without suspicious lesions.? ? Sinuses:? Visualized sinuses and mastoids are clear.? ? IMPRESSION:? 1. Bilateral cerebral and cerebellar edema.? Differential considerations include multifocal metastatic disease with surrounding vasogenic edema versus leukoencephalopathy.? Further assessment with brain MRI with and without intravenous contrast is recommended.? ? Dictated by: Graciela Stone M.D. on 07/06/2021 at 15:50 ? ? Approved by: Graciela Stone M.D. on 07/06/2021 at 15:52?? Chest x-ray: Radiologist's Impression: [place] [address] XRay Report Signed Patient: Gilmer Lebron MR#: [id number] : 1945 Acct:[id number] Age/Sex: 76 / M Date of Service: 07/06/21 Loc: ED Accession Number: [id number] ?? Procedure: XR chest 1V Ordering Provider: Gilmer Melchor MD PROCEDURE:? XR CHEST 1V ? INDICATIONS:? altered mental status ? TECHNIQUE:? One view of the chest was acquired.? ? COMPARISON:? [facility], , XR CHEST 1V, 05/08/2021, 13:23. ? FINDINGS:? ? Surgical changes and devices:? None.? ? Lungs and pleura:? Multiple new nodular densities within the bilateral mid and lower lungs.? No pleural effusions or pneumothorax.? ? Mediastinum:? Mediastinal contours appear normal.? Heart size is normal.? ? Bones and chest wall:? No suspicious bony lesions.? Overlying soft tissues appear unremarkable.? ? IMPRESSION:? Bilateral pulmonary nodular densities, possibly indicating metastatic disease.? Atypical appearance of multifocal pneumonia could produce a similar appearance. ? ? Dictated by: Graciela Stone M.D. on 07/06/2021 at 14:15 ? ? Approved by: Graciela Stone M.D. on 07/06/2021 at 14:17?? ECG Data Attestation: I personally reviewed and interpreted this ECG as follows: (Sinus bradycardia rate 54 beats per minute. Normal intervals. No ectopy. No acute ST T wave changes.) Critical Care Time Critical Care Time Critical Care Time: Yes Total Critical Care Time: 50 Attestation: Critical care time includes the immediate patient evaluation, review of medical records, and review of lab, radiology and EKG data. The clinical findings were discussed with the patient and his . Oncology and hospitalist consultation was obtained. Transfer was arranged. Discharge Plan Departure Patient Disposition: [facility] Clinical Impression: Metastatic cancer to brain, Recurrent malignant neoplasm of bladder, BPH w urinary obs/LUTS, Type 2 diabetes mellitus without complication, without long-term current use of insulin Prescriptions: No Action metformin 1,000 MG tablet 1,000 mg PO BIDCC Qty: 180 3RF tamsulosin 0.4 mg capsule 0.4 mg PO BID Qty: 180 3RF finasteride 5 mg tablet 5 mg PO DAILY Qty: 90 3RF atorvastatin 10 mg tablet 10 mg PO BEDTIME Qty: 90 3RF cholecalciferol (vitamin D3) [Vitamin D3] 25 mcg (1,000 unit) Capsule 25 mcg PO DAILY 0RF melatonin 5 mg Tablet 5 mg PO BEDTIME PRN (Reason: Sleep) 0RF [place] 3-6-9 1,200 mg Capsule 1 cap PO BID 0RF lisinopril 2.5 mg Tablet 2.5 mg PO DAILY 0RF loratadine [Allerclear] 10 mg Tablet 10 mg PO DAILY PRN (Reason: Allergy Symptoms) 0RF ascorbic acid (vitamin C) [Vitamin C] 1,000 mg Tablet 1,000 mg PO DAILY 0RF Referrals: Radu Coyle MD [Primary Care Provider] -
[2021-07-06 15:15] LABS: Add Manual Diff / Slide Review NO; Basophils Absolute Auto 0 /uL (0-100); Basophils Percent Auto 0.4 % (0-2); Eosinophils Absolute Auto 300 /uL (0-450); Eosinophils Percent Auto 4.1 % (2-4); Hematocrit 38.1 % (41-53); Hemoglobin 12.6 g/dL (13.5-17.5); Lymphocytes Absolute Auto 1600 /uL (1100-4500); Lymphocytes Percent Auto 19.4 % (25-40); Mean Corpuscular HGB Conc 33.2 % (30-36); Mean Corpuscular Volume 93.4 fL (80-100); Monocytes Absolute Auto 800 /uL (0-900); Neutrophils Absolute Auto 5400 /uL (1500-7000); Neutrophils Percent Auto 66.1 % (50-75); Platelet Count 286 X10^3/uL (150-400); Red Blood Cell Count 4.08 X10^6/uL (4.5-5.9); Red Cell Distribution Width 13.8 % (11.6-14.8); White Blood Cell Count 8.2 X10^3/uL (4.5-11.0)
[2021-07-06 15:22] LABS: Alanine Aminotransferase 11 IU/L (<50); Albumin 4.4 g/dL (3.5-5.0); Albumin Globulin Ratio 1.3 (1.0-2.8); Alkaline Phosphatase 105 U/L (38-126); Aspartate Aminotransferase 22 IU/L (17-59); BUN Creatinine Ratio 16.9 (6-22); Bilirubin Total 0.6 mg/dL (0.2-1.3); Blood Urea Nitrogen 33 mg/dL (9-20); Calcium 9.9 mg/dL (8.4-10.2); Carbon Dioxide 26 mmol/L (22-32); Chloride 104 mmol/L (98-107); Estimated Glomerular Filt Rate 33.5 mL/min (>60); Globulin 3.3 g/dL (1.7-4.1); Glucose 125 mg/dL (80-110); HEMOLYSIS < 15 (0-50); Sodium 139 mmol/L (137-145); Total Protein 7.7 g/dL (6.3-8.2)
[2021-07-06] MEDS: SODIUM CHLORIDE 0.9% 1,000 ML 1000 ML IV (15:45)
--- NOTE | 2021-07-06 16:23 | DI.CT.S_ITS ---
PROCEDURE: CT HEAD/BRAIN WO CON INDICATIONS: Possible TIA TECHNIQUE: Noncontrast 4.5 mm thick angled axial sections acquired from the foramen magnum to the vertex, with coronal and sagittal reformats. For radiation dose reduction, the following was used: automated exposure control, adjustment of mA and/or kV according to patient size. COMPARISON: None. FINDINGS: Image quality: Excellent. CSF spaces: Basal cisterns are patent. No extra-axial fluid collections. The ventricles are symmetric in size and shape. Brain: There is moderate diffuse bilateral ill-defined low density within the cerebral hemispheres as well as the cerebellar hemispheres. There is cerebral volume loss for age, with resultant ventricular and sulcal prominence. There are periventricular and deep white matter chronic small vessel ischemic changes. There is intracranial internal carotid artery atherosclerosis. Skull and face: Calvarium and visualized facial bones appear intact, without suspicious lesions. Sinuses: Visualized sinuses and mastoids are clear. IMPRESSION: 1. Bilateral cerebral and cerebellar edema. Differential considerations include multifocal metastatic disease with surrounding vasogenic edema versus leukoencephalopathy. Further assessment with brain MRI with and without intravenous contrast is recommended. Dictated by: Graciela Stone M.D. on 07/06/2021 at 15:50 Approved by: Graciela Stone M.D. on 07/06/2021 at 15:52
[2021-07-06] MEDS: DEXAMETHASONE 10 MG/ML VIAL IV (17:23)
[2021-07-06 17:50] LABS: COVID19 -Nasal RAPID Negative (Negative)
== END 2021-07-06 19:21 | disposition short-term general hospital (02) ==
PROVIDERS: Emergency Provider Emergency Medicine; PCP Family Medicine
DX: C79.31 Secondary malignant neoplasm of brain (principal); C67.9 Malignant neoplasm of bladder, unspecified; R00.1 Bradycardia, unspecified; N40.1 Benign prostatic hyperplasia with lower urinary tract symptoms; N13.8 Other obstructive and reflux uropathy; Z20.822 Contact with and (suspected) exposure to COVID-19
CPT/HCPCS: 36415; 70450; 71045; 80053; 81003; 82962; 85025; 87635; 93005; 93010; 96361; 96374; 99284; 99291; C9803; J1100

== ENCOUNTER → 2021-08-01 19:36 | Outpatient (ROUT) | payer MEDICARE, OTHER, SELFPAY ==
[2021-05-08 16:04] VITALS: BMI 23.7
[2021-08-04 09:08] LABS: COVID19 Sendout Not Detected (Not Detect)
== END ==
PROVIDERS: PCP Family Medicine; Visit Provider Internal Medicine
DX: Z20.822 Contact with and (suspected) exposure to COVID-19 (principal)
CPT/HCPCS: 87635